=== PATIENT | male | born 1935 | race Caucasian/White ===

== ENCOUNTER 2016-09-30 08:50 | Emergency (ER) | payer OTHER ==
[~2016-09-30] VITALS: Ht 182.9 cm; Wt 111.9 kg
[~2016-09-30 08:50] MED LIST: ASPEC81 PO; FELO10TA PO; FENO160T PO; FOLI1TAB7 PO; FURO-85 PO; LISI40TA PO; MULT-618 PO; TPRSR25 PO; [UNRECOGNIZED DRUG - OTHER]
[2016-09-30 08:56] VITALS: TEMP 36.4; Ht 182.9 cm; Wt 111.9 kg
[2016-09-30 09:15] VITALS: O2SAT 96
[2016-09-30] MEDS ORDERED: LSX/40 PO (09:44)
[2016-09-30] MEDS ORDERED: ASPI-435 PO (09:44)
[2016-09-30 10:12] LABS: BASO % 0.3 %; BASO ABS # 0.01 K/uL (0-0.2); COMPLETE YES; EOS % 2.6 %; HEMATOCRIT 33.6 % (42-52); IG% 0.3 %; LYMPH % 23.5 %; LYMPH ABS # 0.92 K/uL (1.2-3.4); MEAN CELL VOLUME 109.8 fL (80-100); MEAN CORPUSCULAR HEMOGLOBIN 36.3 pg (25-34); MEAN PLATELET VOLUME 10.3 fL (7.4-10.4); MONO % 20.9 %; NEUT % 52.4 %; PLATELET COUNT 155 K/uL (130-400); RED BLOOD COUNT 3.06 M/uL (4.7-6.1); WHITE BLOOD COUNT 3.92 K/uL (4.8-10.8)
[2016-09-30 10:33] LABS: BUN/CREATININE RATIO 17.9 (10-20); CALCIUM 8.9 mg/dl (8.5-10.1); CREATININE 3.1 mg/dl (0.60-1.40)
[2016-09-30 10:38] LABS: ALB/GLOB RATIO 1.2 (0.9-2); CKMB/CK RATIO 1.9 (0-3.0)
--- NOTE | 2016-09-30 11:05 | DIAGNOSTIC IMAGING REPORT ---
CT OF THE ABDOMEN AND PELVIS WITHOUT CONTRAST CLINICAL HISTORY: Left lower quadrant pain. History of abdominal aortic aneurysm. COMPARISON STUDY: CT of the abdomen and pelvis January 14, 2009 and renal ultrasound January 15, 2009. TECHNIQUE: Axial images of the abdomen and pelvis were obtained without IV contrast. Images were reviewed in the axial, sagittal, and coronal planes. FINDINGS: The heart is moderately enlarged. There is extensive coronary artery calcification. No pneumatosis, free air or portal venous gas is present. No renal, ureteral or bladder calculi are present. Note is made of numerous bilateral renal lesions. The majority of these measure water attenuation and likely reflect simple cysts. A few are hyperdense and may reflect hyperdense cysts although are suboptimally assessed on this unenhanced exam. Unenhanced images of liver, adrenal glands and pancreas are unremarkable with exception of a 6 mm hypodense lateral segment lesion that likely reflects a cyst within the liver. There are small gallstones within the gallbladder. There is no evidence for a bowel obstruction. There is colonic diverticulosis without evidence for acute diverticulitis. There are findings consistent with repair of an abdominal aortic aneurysm. There is no evidence for rupture. Mild aneurysmal dilatation of the left common iliac artery, measuring 2 cm, is unchanged exam of January 14, 2009. Mild enlargement of prostate is noted. There are no suspicious osseous lesions. There are no enlarged lymph nodes. The appendix is normal. IMPRESSION: 1. No urinary calculi or hydronephrosis. 2. No acute process within the abdomen or pelvis on unenhanced exam. 3. Stable postoperative findings consistent with open repair of abdominal aortic aneurysm. No rupture. 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 4. Numerous bilateral renal lesions. These likely reflect simple and hyperdense cysts although remain indeterminate and are suboptimally assessed on this unenhanced exam. 5. Cholelithiasis. Electronically signed by: Ephraim Toledo M.D. 09/30/2016 11:04 AM Dictated Date/Time: 09/30/2016 10:53 AM
[2016-09-30 11:49] LABS: URINE APPEARANCE CLEAR (CLEAR); URINE BILIRUBIN NEG (NEG); URINE COLOR YELLOW; URINE NITRITE NEG (NEG); URINE PH 6.5 (4.5-7.5); URINE SPECIFIC GRAVITY 1.005 (1.000-1.030); UROBILINOGEN NEG (NEG); ZZUR CULT IF INDIC CLEAN CATCH NO
[2016-09-30 11:50] LABS: MANUAL MICROSCOPIC REQUIRED? NO; REVIEW REQ? NO
--- NOTE | 2016-09-30 12:36 | DIAGNOSTIC IMAGING REPORT ---
ULTRASOUND OF THE ABDOMINAL AORTA CLINICAL HISTORY: Left lower quadrant abdominal pain. COMPARISON STUDY: Abdominal CT dated 09/30/2016. TECHNIQUE: Multiple luna scale, color Doppler, and spectral Doppler sonograms of the abdominal aorta and iliac arteries are performed. Images are reviewed in the transverse and longitudinal planes. FINDINGS: There is moderate to advanced atherosclerotic calcification and irregularity noted throughout the abdominal aorta. The proximal abdominal aorta measures 2.3 x 2.4 cm (AP times transverse), the mid abdominal aorta measures 1.9 x 2.1 cm, and the distal abdominal aorta measures 2.0 x 1.8 cm. The right common iliac artery measures up to 1.1 cm and the left common iliac artery measures up to 1.3 cm. There is an aneurysm of the distal left common iliac artery which measures up to 1.7 cm. Normal flow and spectral Doppler waveforms are seen within the aorta and pelvic arteries. IMPRESSION: 1. There is no sonographic evidence of abdominal aortic aneurysm. 2. 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 3. These findings were better assessed on today's abdominal CT scan. Electronically signed by: Tien Goodrich M.D. 09/30/2016 12:34 PM Dictated Date/Time: 09/30/2016 12:31 PM
--- NOTE | 2016-09-30 14:34 | DIAGNOSTIC IMAGING REPORT ---
CHEST ONE VIEW PORTABLE CLINICAL HISTORY: Pain, radiating to the left lower quadrant COMPARISON STUDY: 07/25/2016 FINDINGS: The heart is enlarged. There is no failure. There is no focal pulmonary consolidation. There are no significant pleural effusions. There is minor left basilar atelectasis[ IMPRESSION: No active disease in the chest. Electronically signed by: Hosea Agrawal M.D. 09/30/2016 2:33 PM Dictated Date/Time: 09/30/2016 2:32 PM
[2016-09-30 15:02] VITALS: BP 167/64; PULSE 62; O2SAT 96
--- NOTE | 2016-09-30 15:03 | EMERGENCY ROOM VISIT NOTE ---
History First contact with patient: 09:05 Chief Complaint: IRREGULAR HEARTBEAT Stated Complaint: LEFT SIDE PAIN, FUNNY HEART RATE Nursing Triage Summary: Triage note: pt reports pain in left abd x "a couple months." pt reports hx of aortic anerysm with repair in 1984. pt reports "when i sit a certain way i can feel my heart beat strange for a couple weeks." History of Present Illness The patient is a 80 year old male who presents to the Emergency Room via private vehicle accompanied by with complaints of "left side pain, funny heart rate". The patient states that while sitting certain ways or when stepping down he develops a pulselike sensation throughout his body, worse he is able to feel his heartbeat. He states this is just like he felt when he had his AAA in the past which was repaired in 1984. He also notes that he has left lower quadrant pain that has been ongoing for the past few months, and went away for a period of time but is now back of which he rates as a 2-3/10. He also notes that he has a history of hypertension, and was taking 50 mg 3 times a day of an unknown medication and felt lousy therefore he backed this off. He notes that he had an ultrasound performed 2 months ago of the abdominal aorta which was normal. He notes that the pulselike sensation has been going on for 3 weeks or so, and he was here 2 months ago and diagnosed with PVCs. He states that he also went to his family doctor recently, and his had issues with his legs hurting and is scheduled for testing for this this coming week. 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 He denies any chest pain currently, and notes that he did have an episode for 5 days ago that was brief. His bowel movements have been normal. There is associated minimal nausea, and shortness of breath which is chronic, and unchanged. He denies any chest pain him a urinary symptoms, fevers, chills, vomiting. He denies any blood in the stool. Review of Systems A complete 10-point Review of Systems was discussed with the patient, with pertinent positives and negatives listed in the History of Present Illness. All remaining Review of Systems questions can be considered negative unless otherwise specified. Past Medical/Surgical History Medical Problems: (1) blood clots (2) Hypertension (3) Kidney disease (4) Pneumonia (5) skin problems Family History Diabetes mellitus FH: cancer FH: heart disease Hypertension Kidney disease or stones Social History Smoking Status: Former Smoker Marital Status: Housing Status: lives with family Occupation Status: retired Current/Historical Medications Scheduled Aspirin (Aspirin 81), 81 MG PO DAILY Felodipine (Plendil Er), 10 MG PO QPM Fenofibrate (Tricor), 160 MG PO QAM Folic Acid (Folvite), 1 MG PO QPM Furosemide (Lasix), 40 MG PO QAM Hydralazine HCl (Hydralazine HCl), 50 MG PO HS Hydralazine Hcl (Apresoline), 25 MG PO BID Lisinopril (Zestril), 40 MG PO QAM Metoprolol Succinate (Metoprolol Succinate ER), 25 MG PO BID Oxygen (Oxygen), 2 LITERS NA PRN Sildenafil Citrate (Viagra), 100 MG PO prn Miscellaneous Medications Multiple Vitamins W/ Minerals (Centrum Silver Ultra Mens) Placebo (Lazar Concentrate) Allergies Coded Allergies: Iodinated Diagnostic Agents (Unverified Allergy, Severe, KIDNEY PROBLEMS, 09/30/16) Amoxicillin (Verified Allergy, Unknown, ., 09/30/16) Atorvastatin (Verified Allergy, Unknown, `, 09/30/16) Gemfibrozil (Verified Allergy, Unknown, ., 09/30/16) Penicillins (Verified Allergy, Unknown, 09/30/16) Rosuvastatin (Verified Allergy, Unknown, ., 09/30/16) Morphine (Verified Adverse Reaction, Mild, PT DOES NOT LIKE THE WAY IT MAKES HIM FEEL, 09/30/16) Physical Exam Vital Signs Date Time Temp Pulse Resp B/P Pulse Ox O2 Delivery O2 Flow Rate FiO2 09/30/16 15:02 62 16 167/64 96 09/30/16 14:25 67 14 139/66 93 Room Air 09/30/16 14:16 60 180/75 93 64 166/72 71 139/66 09/30/16 13:11 60 09/30/16 12:27 60 14 176/71 93 Room Air 09/30/16 10:50 57 20 164/67 97 Room Air 09/30/16 09:15 96 Room Air 09/30/16 09:07 65 09/30/16 08:56 36.4 67 20 177/76 98 Room Air Physical Exam VITAL SIGNS - Vital signs and nursing notes were reviewed. Afebrile, hypertensive at 177/76, non-tachycardic and is saturating well on room air 98%. GENERAL -80-year-old male appearing his stated age who is in no acute distress. Communicates well with provider and answers questions appropriately. SKIN - Without rashes. There is erythema over the right adventism region where the patient had a previous biopsy/removal of a malignant lesion. HEAD - NC/AT. EYES - PERRL with EOMI bilaterally. Sclera anicteric. Palpebral conjunctiva pink and moist with no injection noted. EARS - No deformities of external structures noted on gross examination bilaterally. No pain elicited with palpation of the tragus bilaterally. External auditory canals without discharge or otorrhea. Tympanic membranes pearly luna without retraction or bulging. No fluid or purulent material visualized behind the TM. Handle of malleus, umbo, cone of light, pars tensa/ flaccid all easily visualized. NOSE - Midline and without cyanosis. No epistaxis or purulent drainage noted. Septum midline without deviation or septal hematoma noted. MOUTH/OROPHARYNX - Without perioral cyanosis. Buccal mucosa pink and moist and without leukoplakia. Tongue midline with equal elevation of palate bilaterally. No tonsillar hypertrophy, erythema, or exudates noted. Fair dentition noted. NECK - Neck with FROM. Supple to palpation. Good lymphadenopathy noted. No nuchal rigidity. LUNGS - Chest wall symmetric without accessory muscle use, intercostals retractions, or central cyanosis. Normal vesicular breath sounds CTA B/L. No wheezes, rales, or rhonchi appreciated. CARDIAC - RRR with S1/S2. No murmur, rubs, or gallops appreciated. ABDOMEN - Abdominal contour without pulsations or visible masses. BS normoactive all four quadrants. Minimal tenderness in left lower quadrant. No palpable masses, hepatosplenomegaly, or ascites noted. No evidence of hernia. EXTREMITIES - No clubbing or peripheral cyanosis. No pretibial edema present. + 5/5 strength noted in UE/LE bilaterally. NEUROLOGIC - Cranial nerves II through XII grossly intact. Sensory intact to light touch throughout. PSYCH - Pt is very pleasant and interacts well with examiner. Medical Decision & Procedures ER Provider Diagnostic Interpretation: CHEST ONE VIEW PORTABLE CLINICAL HISTORY: Pain, radiating to the left lower quadrant COMPARISON STUDY: 07/25/2016 FINDINGS: The heart is enlarged. There is no failure. There is no focal pulmonary consolidation. There are no significant pleural effusions. There is minor left basilar atelectasis[ IMPRESSION: No active disease in the chest. Electronically signed by: Hosea Agrawal M.D. 09/30/2016 2:33 PM Dictated Date/Time: 09/30/2016 2:32 PM ULTRASOUND OF THE ABDOMINAL AORTA CLINICAL HISTORY: Left lower quadrant abdominal pain. COMPARISON STUDY: Abdominal CT dated 09/30/2016. TECHNIQUE: Multiple luna scale, color Doppler, and spectral Doppler sonograms of the abdominal aorta and iliac arteries are performed. Images are reviewed in the transverse and longitudinal planes. FINDINGS: There is moderate to advanced atherosclerotic calcification and irregularity noted throughout the abdominal aorta. The proximal abdominal aorta measures 2.3 x 2.4 cm (AP times transverse), the mid abdominal aorta measures 1.9 x 2.1 cm, and the distal abdominal aorta measures 2.0 x 1.8 cm. The right common iliac artery measures up to 1.1 cm and the left common iliac artery measures up to 1.3 cm. There is an aneurysm of the distal left common iliac artery which measures up to 1.7 cm. Normal flow and spectral Doppler waveforms are seen within the aorta and pelvic arteries. IMPRESSION: 1. There is no sonographic evidence of abdominal aortic aneurysm. 2. 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 3. These findings were better assessed on today's abdominal CT scan. Electronically signed by: Tien Goodrich M.D. 09/30/2016 12:34 PM Dictated Date/Time: 09/30/2016 12:[address] OF THE ABDOMEN AND PELVIS WITHOUT CONTRAST CLINICAL HISTORY: Left lower quadrant pain. History of abdominal aortic aneurysm. COMPARISON STUDY: CT of the abdomen and pelvis January 14, 2009 and renal ultrasound January 15, 2009. TECHNIQUE: Axial images of the abdomen and pelvis were obtained without IV contrast. Images were reviewed in the axial, sagittal, and coronal planes. FINDINGS: The heart is moderately enlarged. There is extensive coronary artery calcification. No pneumatosis, free air or portal venous gas is present. No renal, ureteral or bladder calculi are present. Note is made of numerous bilateral renal lesions. The majority of these measure water attenuation and likely reflect simple cysts. A few are hyperdense and may reflect hyperdense cysts although are suboptimally assessed on this unenhanced exam. Unenhanced images of liver, adrenal glands and pancreas are unremarkable with exception of a 6 mm hypodense lateral segment lesion that likely reflects a cyst within the liver. There are small gallstones within the gallbladder. There is no evidence for a bowel obstruction. There is colonic diverticulosis without evidence for acute diverticulitis. There are findings consistent with repair of an abdominal aortic aneurysm. There is no evidence for rupture. Mild aneurysmal dilatation of the left common iliac artery, measuring 2 cm, is unchanged exam of January 14, 2009. Mild enlargement of prostate is noted. There are no suspicious osseous lesions. There are no enlarged lymph nodes. The appendix is normal. IMPRESSION: 1. No urinary calculi or hydronephrosis. 2. No acute process within the abdomen or pelvis on unenhanced exam. 3. Stable postoperative findings consistent with open repair of abdominal aortic aneurysm. No rupture. 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 4. Numerous bilateral renal lesions. These likely reflect simple and hyperdense cysts although remain indeterminate and are suboptimally assessed on this unenhanced exam. 5. Cholelithiasis. Electronically signed by: Ephraim Toledo M.D. 09/30/2016 11:04 AM Dictated Date/Time: 09/30/2016 10:53 AM Laboratory Results 09/30/16 09:50 Red Blood Count 3.06, Mean Corpuscular Volume 109.8, Mean Corpuscular Hemoglobin 36.3, Mean Corpuscular Hemoglobin Concent 33.0, Mean Platelet Volume 10.3, Neutrophils (%) (Auto) 52.4, Lymphocytes (%) (Auto) 23.5, Monocytes (%) ( Auto) 20.9, Eosinophils (%) (Auto) 2.6, Basophils (%) (Auto) 0.3, Neutrophils # (Auto) 2.06, Lymphocytes # (Auto) 0.92, Monocytes # (Auto) 0.82, Eosinophils # ( Auto) 0.10, Basophils # (Auto) 0.01 09/30/16 09:50 Test 09/30/16 09:50 09/30/16 10:24 White Blood Count 3.92 K/uL (4.8-10.8) Red Blood Count 3.06 M/uL (4.7-6.1) Hemoglobin 11.1 g/dL (14.0-18.0) Hematocrit 33.6 % (42-52) Mean Corpuscular Volume 109.8 fL (80-100) Mean Corpuscular Hemoglobin 36.3 pg (25-34) Mean Corpuscular Hemoglobin Concent 33.0 g/dl (32-36) Platelet Count 155 K/uL (130-400) Mean Platelet Volume 10.3 fL (7.4-10.4) Neutrophils (%) (Auto) 52.4 % Lymphocytes (%) (Auto) 23.5 % Monocytes (%) (Auto) 20.9 % Eosinophils (%) (Auto) 2.6 % Basophils (%) (Auto) 0.3 % Neutrophils # (Auto) 2.06 K/uL (1.4-6.5) Lymphocytes # (Auto) 0.92 K/uL (1.2-3.4) Monocytes # (Auto) 0.82 K/uL (0.11-0.59) Eosinophils # (Auto) 0.10 K/uL (0-0.5) Basophils # (Auto) 0.01 K/uL (0-0.2) RDW Standard Deviation 63.1 fL (36.4-46.3) RDW Coefficient of Variation 15.9 % (11.5-14.5) Immature Granulocyte % (Auto) 0.3 % Immature Granulocyte # (Auto) 0.01 K/uL (0.00-0.02) Anion Gap 9.0 mmol/L (3-11) Est Creatinine Clear Calc Drug Dose 23.7 ml/min Estimated GFR () 20.6 Estimated GFR (Non- 17.8 BUN/Creatinine Ratio 17.9 (10-20) Calcium Level 8.9 mg/dl (8.5-10.1) Total Bilirubin 0.5 mg/dl (0.2-1) Aspartate Amino Transf (AST/SGOT) 28 U/L (15-37) Alanine Aminotransferase (ALT/SGPT) 32 U/L (12-78) Alkaline Phosphatase 39 U/L (45-117) Total Creatine Kinase 85 U/L (39-308) Creatine Kinase MB 1.6 ng/ml (0.5-3.6) Creatine Kinase MB Ratio 1.9 (0-3.0) Troponin I < 0.015 ng/ml (0-0.045) Total Protein 6.9 gm/dl (6.4-8.2) Albumin 3.7 gm/dl (3.4-5.0) Globulin 3.2 gm/dl (2.5-4.0) Albumin/Globulin Ratio 1.2 (0.9-2) Lipase 177 U/L (73-393) Urine Color YELLOW Urine Appearance CLEAR (CLEAR) Urine pH 6.5 (4.5-7.5) Urine Specific [place] 1.005 (1.000-1.030) Urine Protein NEG (NEG) Urine Glucose (UA) NEG (NEG) Urine Ketones NEG (NEG) Urine Occult Blood NEG (NEG) Urine Nitrite NEG (NEG) Urine Bilirubin NEG (NEG) Urine Urobilinogen NEG (NEG) Urine Leukocyte Esterase NEG (NEG) Medical Decision Patient was seen and evaluated as above. After cleaning a thorough history and physical examination the above workup was completed. The patient did not have any current symptomatology suggestive of an acute coronary process however workup was also initiated in this direction. An EKG was also obtained and revealed a normal sinus rhythm, rate of 65 bpm, and when compared with previous no significant change was found. There was no ectopy or ischemic change noted upon the EKG at this time. Patient did not want anything for his pain. Laboratory results reveal a white blood cell count 3.92, hemoglobin of 11.1. CMP reveals BUN and creatinine of 56, and 3.10 respectively. Glucose was also 1 :15, and alkaline phosphatase was 39. Troponin was negative. Lipase was also within normal limits. Urine was unremarkable. CT scan without contrast was obtained secondary to the patient not being able to tolerate the contrast. Results as above. I agree with radiologist findings. There was concern for AAA however this was found to be not the case. Ultrasound was also obtained, and did not reveal any emergent aneurysm in the abdominal aorta. With the troponin being negative, EKG being stable, I do not feel there is any emergent cause at this time. Case was also discussed with my attending. I believe the patient can follow-up in the outpatient setting regarding today's visit. Patient has an appointment scheduled within the coming week. I did with this is appropriate. He is to return with any worsening, or new/concerning symptoms. There were thoroughly educated upon the findings of today's visit, instructed upon follow-up, were instructed to return and were educated upon reasons to return, they had questions answered prior to discharge and were discharged home in good condition. Patient was also thoroughly evaluated by my attending. Chest x-ray did not reveal any acute process. In evaluation treatment this patient the following differential diagnoses were entertained: ACS, PR, PE, COPD, AAA, diverticulitis, diverticulosis, perforation , among others. Impression Primary Impression: LLQ abdominal pain Additional Impression: Anemia Departure Information Dispostion Home / Self-Care Condition GOOD Referrals Remington Messina M.D. (PCP) Patient Instructions My [facility] Additional Instructions You were seen in the emergency Department for left lower quadrant pain, as well as in regard to your heart rate. Imaging and lab work has revealed no emergent cause at this time, however it is important you follow up with your family doctor regarding this matter. As we discussed,your family doctor will have access to your records from today' s visit. Please return to emergency department with any new/concerning symptoms. Please further discuss your lab results and imaging with your family doctor as we discussed. Please return to emergency department with any new/concerning symptoms. Problem Qualifiers
--- NOTE | 2016-09-30 17:02 | EMERGENCY ROOM VISIT NOTE ---
ED Visit Note First contact with patient: 09:05 80-year-old male with a pulse beating up through his chest into his neck. The patient is concerned about a problem with a prior aortic aneurysm. The patient was fully evaluated by Elijah Jacobsen PA-C. I also independently evaluated the patient. Patient had multiple imaging tests and blood work. Ultimately, the patient was felt safe to return home.
[2016-11-13] MEDS ORDERED: SILD100T PO (06:39)
[2016-11-13] MEDS ORDERED: APR25 PO (09:44)
[2016-11-13] MEDS ORDERED: OXGN (13:47)
== END 2016-09-30 15:02 | disposition home or self-care (01) ==
LOC: C.EDB 08:53
DX: R10.32 Left lower quadrant pain (principal); D64.9 Anemia, unspecified; I12.9 Hypertensive chronic kidney disease with stage 1 through stage 4 chronic kidney disease, or unspecified chronic kidney disease; N18.9 Chronic kidney disease, unspecified; Z87.891 Personal history of nicotine dependence; Z79.82 Long term (current) use of aspirin; Z79.899 Other long term (current) drug therapy; Z88.0 Allergy status to penicillin; Z88.3 Allergy status to other anti-infective agents; Z88.5 Allergy status to narcotic agent; Z88.8 Allergy status to other drugs, medicaments and biological substances; Z83.3 Family history of diabetes mellitus; Z80.9 Family history of malignant neoplasm, unspecified; Z82.49 Family history of ischemic heart disease and other diseases of the circulatory system; Z84.1 Family history of disorders of kidney and ureter

== ENCOUNTER 2016-11-13 18:21 | Emergency (ER) | payer OTHER ==
[~2016-11-13] VITALS: Ht 182.9 cm; Wt 108.4 kg
[~2016-11-13 18:21] MED LIST changes: +APR25 PO; -ASPEC81 PO; +ASPI-435 PO; -FURO-85 PO; +LSX/40 PO; +OXGN; +SILD100T PO
[2016-11-13] MEDS ORDERED: APR50 PO (18:23)
[2016-11-13 18:28] VITALS: Ht 182.9 cm; Wt 108.4 kg
--- NOTE | 2016-11-13 18:54 | EMERGENCY ROOM VISIT NOTE ---
History Report prepared by Enriqueta: Baltazar Jack Under the Supervision of: Dr. Pantera Orantes M.D. First contact with patient: 18:33 Chief Complaint: IRREGULAR HEARTBEAT Stated Complaint: IRREGULAR HEARTRATE,DOESN'T FEEL WELL History of Present Illness The patient is an 81 year old male who presents to the Emergency Room with complaints of an intermittent irregular heart beat that the patient began to experience today. The patient states that it feels as though his heart is skipping a beat and beating out of rhythm. He also complains of becoming diaphoretic last night and generally unwell throughout the day today. He was in the emergency department 6 weeks ago for the same feeling. He was diagnosed with PVCs following this visit. The patient is on Metoprolol twice daily. He does admit to eating salty ham today for the Holiday. He also has a history of Aortic Aneurysm which he had in July. Source of History: patient Onset: Today Position: chest Quality: other (Irregular heartbeat ) Timing: intermittent Associated Symptoms: + diaphoresis Review of Systems See HPI for pertinent positives & negatives. A total of 10 systems reviewed and were otherwise negative. Past Medical & Surgical Medical Problems: (1) blood clots (2) Hypertension (3) Kidney disease (4) Pneumonia (5) skin problems Family History Diabetes mellitus FH: cancer FH: heart disease Hypertension Kidney disease or stones Social History Smoking Status: Former Smoker Marital Status: Housing Status: lives with family Occupation Status: retired Current/Historical Medications Scheduled Acetaminophen (Tylenol), 1,000 MG PO PRN UD Aspirin (Aspirin 81), 81 MG PO DAILY Felodipine (Plendil Er), 10 MG PO QPM Fenofibrate (Tricor), 160 MG PO QAM Folic Acid (Folvite), 1 MG PO QPM Furosemide (Lasix), 40 MG PO QAM Hydralazine HCl (Hydralazine HCl), 50 MG PO HS Hydralazine Hcl (Apresoline), 25 MG PO BID Lisinopril (Zestril), 40 MG PO QAM Metoprolol Succinate (Metoprolol Succinate ER), 25 MG PO BID Oxygen (Oxygen), 2 LITERS NA PRN Sildenafil Citrate (Viagra), 100 MG PO prn [Black Lazar Juice], 4 OZ PO DAILY Miscellaneous Medications Multiple Vitamins W/ Minerals (Centrum Silver Ultra Mens), 1 TAB Allergies Coded Allergies: Iodinated Diagnostic Agents (Unverified Allergy, Severe, KIDNEY PROBLEMS, 09/30/16) Amoxicillin (Verified Allergy, Unknown, ., 09/30/16) Atorvastatin (Verified Allergy, Unknown, `, 09/30/16) Gemfibrozil (Verified Allergy, Unknown, ., 09/30/16) Penicillins (Verified Allergy, Unknown, 09/30/16) Rosuvastatin (Verified Allergy, Unknown, ., 09/30/16) Morphine (Verified Adverse Reaction, Mild, PT DOES NOT LIKE THE WAY IT MAKES HIM FEEL, 09/30/16) Physical Exam Vital Signs Date Time Temp Pulse Resp B/P Pulse Ox O2 Delivery O2 Flow Rate FiO2 11/13/16 20:53 36.7 79 20 181/80 96 11/13/16 20:30 183/80 11/13/16 20:27 71 97 11/13/16 20:06 79 11/13/16 20:01 185/79 11/13/16 19:57 69 21 96 11/13/16 19:52 67 181/80 11/13/16 19:30 73 189/81 11/13/16 19:19 72 147/78 11/13/16 19:14 96 Room Air 11/13/16 19:14 96 Room Air 11/13/16 19:14 96 Room Air 11/13/16 19:11 71 198/103 11/13/16 18:28 36.7 78 20 190/68 94 Room Air Physical Exam GENERAL: Patient is a healthy-appearing well-nourished HEAD: Normocephalic atraumatic EYES: Ocular movements intact pupils equal and react to light OROPHARYNX mucous membranes are moist no exudates present no erythema or edema present NECK: Supple no nuchal rigidity CHEST: Good equal expansion LUNGS: Clear and equal to auscultation CARDIAC: Normal S1 and S2 ABDOMEN: Soft nontender no guarding BACK: No CVA tenderness EXTREMITIES: No pain upon palpation normal muscle strength in all groups no clubbing cyanosis or edema NEURO: Patient is following commands is answering questions appropriately. Alert and oriented x3 Cranial Nerves 2-12 grossly intact Medical Decision & Procedures ER Provider Diagnostic Interpretation: Radiology results as stated below per my review and radiologist interpretation: SINGLE VIEW CHEST CLINICAL HISTORY: Atypical chest pain. FINDINGS: An AP, portable, upright chest radiograph is compared to study dated 09/30/2016 and correlated with chest CT dated 01/14/2009. The examination is degraded by portable technique, large body habitus, and patient rotation. The heart is markedly enlarged and there is atherosclerotic calcification of the thoracic aorta. The pulmonary vasculature is noncongested. Chronic interstitial thickening is similar to previous. There is bibasilar atelectasis. No airspace consolidation or large pleural effusion is seen. No pneumothorax is identified. The skeletal structures are osteopenic. Degenerative changes noted throughout the thoracic spine. IMPRESSION: Cardiomegaly with no acute cardiopulmonary abnormality. Electronically signed by: Tien Goodrich M.D. 11/13/2016 7:22 PM Dictated Date/Time: 11/13/2016 7:20 PM Laboratory Results 11/13/16 19:20 Red Blood Count 2.85, Mean Corpuscular Volume 108.8, Mean Corpuscular Hemoglobin 36.5, Mean Corpuscular Hemoglobin Concent 33.5, Mean Platelet Volume 9.8, Neutrophils (%) (Auto) 49.2, Lymphocytes (%) (Auto) 22.7, Monocytes (%) ( Auto) 26.2, Eosinophils (%) (Auto) 1.2, Basophils (%) (Auto) 0.2, Neutrophils # (Auto) 1.97, Lymphocytes # (Auto) 0.91, Monocytes # (Auto) 1.05, Eosinophils # ( Auto) 0.05, Basophils # (Auto) 0.01 11/13/16 19:20 Test 11/13/16 19:20 11/13/16 19:29 White Blood Count 4.01 K/uL (4.8-10.8) Red Blood Count 2.85 M/uL (4.7-6.1) Hemoglobin 10.4 g/dL (14.0-18.0) Hematocrit 31.0 % (42-52) Mean Corpuscular Volume 108.8 fL (80-100) Mean Corpuscular Hemoglobin 36.5 pg (25-34) Mean Corpuscular Hemoglobin Concent 33.5 g/dl (32-36) Platelet Count 148 K/uL (130-400) Mean Platelet Volume 9.8 fL (7.4-10.4) Neutrophils (%) (Auto) 49.2 % Lymphocytes (%) (Auto) 22.7 % Monocytes (%) (Auto) 26.2 % Eosinophils (%) (Auto) 1.2 % Basophils (%) (Auto) 0.2 % Neutrophils # (Auto) 1.97 K/uL (1.4-6.5) Lymphocytes # (Auto) 0.91 K/uL (1.2-3.4) Monocytes # (Auto) 1.05 K/uL (0.11-0.59) Eosinophils # (Auto) 0.05 K/uL (0-0.5) Basophils # (Auto) 0.01 K/uL (0-0.2) RDW Standard Deviation 64.1 fL (36.4-46.3) RDW Coefficient of Variation 16.1 % (11.5-14.5) Immature Granulocyte % (Auto) 0.5 % Immature Granulocyte # (Auto) 0.02 K/uL (0.00-0.02) Anion Gap 9.0 mmol/L (3-11) Est Creatinine Clear Calc Drug Dose 23.0 ml/min Estimated GFR () 20.5 Estimated GFR (Non- 17.6 BUN/Creatinine Ratio 17.5 (10-20) Calcium Level 8.4 mg/dl (8.5-10.1) Total Bilirubin 0.2 mg/dl (0.2-1) Direct Bilirubin mg/dl (0-0.2) Aspartate Amino Transf (AST/SGOT) 35 U/L (15-37) Alanine Aminotransferase (ALT/SGPT) 30 U/L (12-78) Alkaline Phosphatase 39 U/L (45-117) Total Creatine Kinase 105 U/L (39-308) Creatine Kinase MB 1.5 ng/ml (0.5-3.6) Creatine Kinase MB Ratio 1.4 (0-3.0) Troponin I < 0.015 ng/ml (0-0.045) Pro-B-Type Natriuretic Peptide 202 pg/ml (0-1800) Total Protein 6.6 gm/dl (6.4-8.2) Albumin 3.5 gm/dl (3.4-5.0) Lipase 206 U/L (73-393) Chemistry Specimen Hemolysis Bedside Hemoglobin 9.9 g/dl (14.0-18.0) Bedside Hematocrit 29 % (42-52) Bedside Blood Gas pH (LAB) 7.44 (7.35-7.45) Bedside Blood Gas pCO2 (LAB) 35 mmHg (35-46) Bedside Blood Gas pO2 (LAB) 75 mmHg (80-95) Bedside Blood Gas HCO3 (LAB) 24 meq/L (19-24) Bedside Blood Gas Total CO2 25 mEq/l (24-31) Bedside Blood Gas Base Excess (LAB) 0.0 meq/L (-9-1.8) Bedside Blood Gas O2 Saturation 95.0 % (90-95) Bedside Sodium 142 mEq/L (135-144) Bedside Potassium 3.9 mEq/L (3.3-5.0) Labs reviewed by ED physician. Medications Administered Medications (Trade) Dose Ordered Sig/Kay Route Start Time Stop Time Status Last Admin Dose Admin Sodium Chloride (Nss 500ml) 500 ml @ 999 mls/hr Q31M STAT IV 11/13/16 20:10 11/13/16 20:40 DC 11/13/16 20:18 999 MLS/HR ECG Indication: palpitations Rate (beats per minute): 78 Rhythm: sinus rhythm Findings: PVC (Frequent), no ectopy ED Course 1832: Past medical records reviewed. The patient was evaluated in room B6. A complete history and physical examination was performed. 2009: Sodium Chloride 500 mL @ 999 mL/hr IV. 2040: Upon reexamination the patient is improved. I discussed results and treatment plan with the patient. He verbalizes agreement and understanding. The patient is ready for discharge. Medical Decision Differential diagnosis: Etiologies such as premature contractions, electrolyte abnormality, cardiac dysrhythmia, thyroid dysfunction, pulmonary embolism, infection, gastrointestinal, as well as others were entertained. This is an 81-year-old male who presents emergency department complaining of PVCs. The patient is been evaluated twice in the emergency department for these since July. He reports he has been very physically active over the past 2 days and the past 2 days have been very warm. Based on these findings I elected to give the patient fluid as he does appear to be dehydrated according to his lab work. His creatinine is usually around 2.8-2.9. It is 3.1 today. In addition the patient was also given his evening medications and this seemed to take care of the problem of the PVCs. I believe the patient probably exerted himself on a warm hot day and probably needed his evening medications a little earlier. I did stressed the need for follow-up with cardiology. He is going to increase his fluid intake over the next 48 hours. Both patient and are in agreement with the treatment plan. Impression Primary Impression: PVC (premature ventricular contraction) Additional Impression: Dehydration Scribe Attestation The scribe's documentation has been prepared under my direction and personally reviewed by me in its entirety. I confirm that the note above accurately reflects all work, treatment, procedures, and medical decision making performed by me. Departure Information Dispostion Home / Self-Care Referrals Remington Messina M.D. (PCP) Forms HOME CARE DOCUMENTATION FORM, IMPORTANT VISIT INFORMATION Patient Instructions My [facility] Additional Instructions Increase fluids next 48 hours Follow up with DR Mars's office You have been examined and treated today on an emergency basis only. This is not a substitute for, or an effort to provide, complete comprehensive medical care. It is impossible to recognize and treat all injuries or illnesses in a single emergency department visit. It is therefore important that you follow up closely with Dr Messina. Call as soon as possible for an appointment. Thank you for your time and consideration. I look forward to speaking with you again soon. Please don't hesitate to call us if you have any questions. Problem Qualifiers
[2016-11-13] MEDS ORDERED: BLACK CHERRY JUICE PO (19:01)
[2016-11-13] MEDS ORDERED: ACET-1256 PO (19:01)
[2016-11-13 19:14] VITALS: O2SAT 96
--- NOTE | 2016-11-13 19:24 | DIAGNOSTIC IMAGING REPORT ---
SINGLE VIEW CHEST CLINICAL HISTORY: Atypical chest pain. FINDINGS: An AP, portable, upright chest radiograph is compared to study dated 09/30/2016 and correlated with chest CT dated 01/14/2009. The examination is degraded by portable technique, large body habitus, and patient rotation. The heart is markedly enlarged and there is atherosclerotic calcification of the thoracic aorta. The pulmonary vasculature is noncongested. Chronic interstitial thickening is similar to previous. There is bibasilar atelectasis. No airspace consolidation or large pleural effusion is seen. No pneumothorax is identified. The skeletal structures are osteopenic. Degenerative changes noted throughout the thoracic spine. IMPRESSION: Cardiomegaly with no acute cardiopulmonary abnormality. Electronically signed by: Tien Goodrich M.D. 11/13/2016 7:22 PM Dictated Date/Time: 11/13/2016 7:20 PM
[2016-11-13 19:29] LABS: BASO % 0.2 %; BASO ABS # 0.01 K/uL (0-0.2); COMPLETE YES; EOS % 1.2 %; IG% 0.5 %; LYMPH % 22.7 %; LYMPH ABS # 0.91 K/uL (1.2-3.4); MEAN CELL VOLUME 108.8 fL (80-100); MEAN CORPUSCULAR HEMOGLOBIN 36.5 pg (25-34); MEAN CORPUSCULAR HGB CONC 33.5 g/dl (32-36); MEAN PLATELET VOLUME 9.8 fL (7.4-10.4); MONO % 26.2 %; NEUT % 49.2 %; PLATELET COUNT 148 K/uL (130-400); RED BLOOD COUNT 2.85 M/uL (4.7-6.1); WHITE BLOOD COUNT 4.01 K/uL (4.8-10.8)
[2016-11-13 19:43] LABS: ISTAT ARTERIAL BLOOD GAS HCO3 24 meq/L (19-24); ISTAT ARTERIAL BLOOD GAS PCO2 35 mmHg (35-46); ISTAT ARTERIAL BLOOD GAS PO2 75 mmHg (80-95); ISTAT ARTERIAL BLOOD GAS pH 7.44 (7.35-7.45); ISTAT CARBON DIOXIDE 25 mEq/l (24-31); ISTAT HEMATOCRIT 29 % (42-52); ISTAT HEMOGLOBIN 9.9 g/dl (14.0-18.0); ISTAT SODIUM 142 mEq/L (135-144)
[2016-11-13 20:02] LABS: ALKALINE PHOSPHATASE 39 U/L (45-117); ALT/SGPT 30 U/L (12-78); AST/SGOT 35 U/L (15-37); BLOOD UREA NITROGEN 54 mg/dl (7-18); BUN/CREATININE RATIO 17.5 (10-20); CALCIUM 8.4 mg/dl (8.5-10.1); CARBON DIOXIDE 26 mmol/L (21-32); CHLORIDE 110 mmol/L (98-107); CKMB/CK RATIO 1.4 (0-3.0); GLUCOSE 134 mg/dl (70-99); POTASSIUM 3.9 mmol/L (3.5-5.1); SODIUM 145 mmol/L (136-145)
[2016-11-13] MEDS ORDERED: SODIUM CHLORIDE 0.9% 500ML 500 ML IV STA (20:10)
[2016-11-13 20:53] VITALS: BP 181/80; PULSE 79; TEMP 36.7; O2SAT 96
== END 2016-11-13 20:53 | disposition home or self-care (01) ==
LOC: C.EDB 18:22
DX: I49.3 Ventricular premature depolarization (principal); E86.0 Dehydration; R61 Generalized hyperhidrosis; I10 Essential (primary) hypertension; Z86.79 Personal history of other diseases of the circulatory system; Z87.891 Personal history of nicotine dependence; Z83.3 Family history of diabetes mellitus; Z82.49 Family history of ischemic heart disease and other diseases of the circulatory system; Z84.1 Family history of disorders of kidney and ureter; Z79.82 Long term (current) use of aspirin

== ENCOUNTER 2016-11-28 13:15 | Emergency (ER) | payer OTHER ==
[~2016-11-28] VITALS: Ht 182.9 cm; Wt 108.6 kg
[~2016-11-28 13:15] MED LIST changes: +ACET-1256 PO; +APR50 PO; +BLACK CHERRY JUICE PO; -[UNRECOGNIZED DRUG - OTHER]
[2016-11-28 13:27] VITALS: TEMP 36.9; Ht 182.9 cm; Wt 108.6 kg
[2016-11-28 13:56] LABS: BASO % 0.2 %; BASO ABS # 0.01 K/uL (0-0.2); EOS % 0.8 %; HEMATOCRIT 33.2 % (42-52); IG% 0.2 %; LYMPH % 16.6 %; LYMPH ABS # 0.81 K/uL (1.2-3.4); MEAN CELL VOLUME 110.3 fL (80-100); MEAN CORPUSCULAR HEMOGLOBIN 36.2 pg (25-34); MEAN CORPUSCULAR HGB CONC 32.8 g/dl (32-36); MEAN PLATELET VOLUME 10.2 fL (7.4-10.4); NEUT % 59.2 %; PLATELET COUNT 183 K/uL (130-400); RED BLOOD COUNT 3.01 M/uL (4.7-6.1); WHITE BLOOD COUNT 4.87 K/uL (4.8-10.8)
--- NOTE | 2016-11-28 13:56 | DIAGNOSTIC IMAGING REPORT ---
CHEST ONE VIEW PORTABLE CLINICAL HISTORY: Fever and sepsis COMPARISON STUDY: 11/13/2016 FINDINGS: The heart remains mildly enlarged. There is no failure. There is no focal pulmonary consolidation. No pleural effusions are visualized. There is minor left basilar atelectasis.[ IMPRESSION: Mild cardiomegaly. No acute findings. Electronically signed by: Hosea Agrawal M.D. 11/28/2016 1:54 PM Dictated Date/Time: 11/28/2016 1:54 PM
[2016-11-28 14:19] LABS: COMPLETE YES; STOMATOCYTE 1+
[2016-11-28] MEDS ORDERED: CHERRY JUICE PO (14:19)
[2016-11-28] MEDS ORDERED: AZIT250T PO (14:19)
[2016-11-28 14:49] LABS: ALKALINE PHOSPHATASE 42 U/L (45-117); ALT/SGPT 33 U/L (12-78); AST/SGOT 33 U/L (15-37); BLOOD UREA NITROGEN 57 mg/dl (7-18); BUN/CREATININE RATIO 19.6 (10-20); CALCIUM 8.9 mg/dl (8.5-10.1); CARBON DIOXIDE 22 mmol/L (21-32); CHLORIDE 105 mmol/L (98-107); CKMB/CK RATIO 1.6 (0-3.0); GLUCOSE 166 mg/dl (70-99); POTASSIUM 4.2 mmol/L (3.5-5.1); SODIUM 137 mmol/L (136-145)
[2016-11-28 14:56] LABS: PARTIAL THROMBOPLASTIN RATIO 0.9; PROTHROMBIN TIME (PATIENT) 11.2 SECONDS (9.0-12.0)
--- NOTE | 2016-11-28 15:03 | EMERGENCY ROOM VISIT NOTE ---
History Report prepared by Enriqueta: Char Chu Under the Supervision of: Dr. Pantera Paige D.O. First contact with patient: 13:34 Chief Complaint: CHEST PAIN Stated Complaint: CHEST PAIN History of Present Illness The patient is a 81 year old male who presents to the Emergency Room with complaints of shortness of breath starting a few months ago and worsening about a week ago. The patient reports worsening difficulty breathing with exertion. He also reports increased weakness and tiredness. He reports some heart palpitations which have been occurring for the past week and have worsened today. He has a history of PVCs, bypass surgery, and aortic aneurysm repair. He has an appointment with his icu tech tomorrow. The patient denies fevers, chills, chest pain, nausea, vomiting, abdominal pain, or any other complaints. Source of History: patient Onset: a few months ago Position: other (global) Quality: other (shortness of breath) Timing: worsening Modifying Factors (Worsening): exertion Associated Symptoms: + weakness, No abdominal pain, No chest pain, No chills , No fevers, No nausea, No vomiting Review of Systems See HPI for pertinent positives & negatives. A total of 10 systems reviewed and were otherwise negative. Past Medical & Surgical Medical Problems: (1) blood clots (2) Hypertension (3) Kidney disease (4) Pneumonia (5) skin problems Family History Diabetes mellitus FH: cancer FH: heart disease Hypertension Kidney disease or stones Social History Smoking Status: Former Smoker Marital Status: Housing Status: lives with family Occupation Status: retired Current/Historical Medications Scheduled Acetaminophen (Tylenol), 1,000 MG PO PRN UD Aspirin (Aspirin 81), 81 MG PO DAILY Azithromycin (Zithromax), 500 MG PO UD Felodipine (Plendil Er), 10 MG PO QPM Fenofibrate (Tricor), 160 MG PO QAM Folic Acid (Folvite), 1 MG PO QPM Furosemide (Lasix), 40 MG PO QAM Hydralazine HCl (Hydralazine HCl), 50 MG PO TID Lisinopril (Zestril), 40 MG PO QAM Metoprolol Succinate (Metoprolol Succinate ER), 25 MG PO BID Multiple Vitamins W/ Minerals (Centrum Silver Ultra Mens), 1 TAB PO DAILY Oxygen (Oxygen), 2 LITERS NA PRN Sildenafil Citrate (Viagra), 100 MG PO prn [Lazar Juice], 4 OZ PO DAILY Allergies Coded Allergies: Iodinated Diagnostic Agents (Unverified Allergy, Severe, KIDNEY PROBLEMS, 09/30/16) Amoxicillin (Verified Allergy, Unknown, ., 09/30/16) Atorvastatin (Verified Allergy, Unknown, `, 09/30/16) Gemfibrozil (Verified Allergy, Unknown, ., 09/30/16) Penicillins (Verified Allergy, Unknown, 09/30/16) Rosuvastatin (Verified Allergy, Unknown, ., 09/30/16) Morphine (Verified Adverse Reaction, Mild, PT DOES NOT LIKE THE WAY IT MAKES HIM FEEL, 09/30/16) Physical Exam Vital Signs Date Time Temp Pulse Resp B/P Pulse Ox O2 Delivery O2 Flow Rate FiO2 11/28/16 13:38 79 11/28/16 13:27 36.9 79 18 162/77 95 Room Air Physical Exam CONSTITUTIONAL/VITAL SIGNS: Reviewed / noted above. GENERAL: Non-toxic in appearance. INTEGUMENTARY: Warm, dry, and [place]. HEAD: Normocephalic. EYES: without scleral icterus or trauma. ENT/OROPHARYNX: clear and moist. LYMPHADENOPATHY/NECK: Is supple without lymphadenopathy or meningismus. RESPIRATORY: Lungs clear and equal. CARDIOVASCULAR: Regular rate and rhythm. GI/ABDOMEN: Soft and nontender. No organomegaly or pulsatile mass. No rebound or guarding. Normal bowel sounds. EXTREMITIES: Warm and well perfused. BACK: No CVA tenderness. NEUROLOGICAL: Intact without focal deficits. PSYCHIATRIC: normal affect. MUSCULOSKELETAL: Normally developed with good muscle tone. Medical Decision & Procedures ER Provider Diagnostic Interpretation: X ray results and stated below per my interpretation and radiology interpretation. CHEST ONE VIEW PORTABLE CLINICAL HISTORY: Fever and sepsis COMPARISON STUDY: 11/13/2016 FINDINGS: The heart remains mildly enlarged. There is no failure. There is no focal pulmonary consolidation. No pleural effusions are visualized. There is minor left basilar atelectasis.[ IMPRESSION: Mild cardiomegaly. No acute findings. Electronically signed by: Hosea Agrawal M.D. 11/28/2016 1:54 PM Dictated Date/Time: 11/28/2016 1:54 PM Laboratory Results 11/28/16 13:35 Red Blood Count 3.01, Mean Corpuscular Volume 110.3, Mean Corpuscular Hemoglobin 36.2, Mean Corpuscular Hemoglobin Concent 32.8, Mean Platelet Volume 10.2, Neutrophils (%) (Auto) 59.2, Lymphocytes (%) (Auto) 16.6, Monocytes (%) ( Auto) 23.0, Eosinophils (%) (Auto) 0.8, Basophils (%) (Auto) 0.2, Neutrophils # (Auto) 2.88, Lymphocytes # (Auto) 0.81, Monocytes # (Auto) 1.12, Eosinophils # ( Auto) 0.04, Basophils # (Auto) 0.01 11/28/16 13:35 Test 11/28/16 13:35 11/28/16 14:35 White Blood Count 4.87 K/uL (4.8-10.8) Red Blood Count 3.01 M/uL (4.7-6.1) Hemoglobin 10.9 g/dL (14.0-18.0) Hematocrit 33.2 % (42-52) Mean Corpuscular Volume 110.3 fL (80-100) Mean Corpuscular Hemoglobin 36.2 pg (25-34) Mean Corpuscular Hemoglobin Concent 32.8 g/dl (32-36) Platelet Count 183 K/uL (130-400) Mean Platelet Volume 10.2 fL (7.4-10.4) Neutrophils (%) (Auto) 59.2 % Lymphocytes (%) (Auto) 16.6 % Monocytes (%) (Auto) 23.0 % Eosinophils (%) (Auto) 0.8 % Basophils (%) (Auto) 0.2 % Neutrophils # (Auto) 2.88 K/uL (1.4-6.5) Lymphocytes # (Auto) 0.81 K/uL (1.2-3.4) Monocytes # (Auto) 1.12 K/uL (0.11-0.59) Eosinophils # (Auto) 0.04 K/uL (0-0.5) Basophils # (Auto) 0.01 K/uL (0-0.2) RDW Standard Deviation 64.3 fL (36.4-46.3) RDW Coefficient of Variation 16.0 % (11.5-14.5) Immature Granulocyte % (Auto) 0.2 % Immature Granulocyte # (Auto) 0.01 K/uL (0.00-0.02) Macrocytosis PRESENT Stomatocytes 1+ Anion Gap 10.0 mmol/L (3-11) Est Creatinine Clear Calc Drug Dose 24.6 ml/min Estimated GFR () 22.2 Estimated GFR (Non- 19.1 BUN/Creatinine Ratio 19.6 (10-20) Calcium Level 8.9 mg/dl (8.5-10.1) Total Bilirubin 0.5 mg/dl (0.2-1) Direct Bilirubin mg/dl (0-0.2) Aspartate Amino Transf (AST/SGOT) 33 U/L (15-37) Alanine Aminotransferase (ALT/SGPT) 33 U/L (12-78) Alkaline Phosphatase 42 U/L (45-117) Total Creatine Kinase 74 U/L (39-308) Creatine Kinase MB 1.2 ng/ml (0.5-3.6) Creatine Kinase MB Ratio 1.6 (0-3.0) Troponin I < 0.015 ng/ml (0-0.045) Total Protein 7.0 gm/dl (6.4-8.2) Albumin 3.9 gm/dl (3.4-5.0) Lipase 210 U/L (73-393) Prothrombin Time 11.2 SECONDS (9.0-12.0) Prothromb Time International Ratio 1.0 (0.9-1.1) Activated Partial Thromboplast Time 24.4 SECONDS (21.0-31.0) Partial Thromboplastin Ratio 0.9 Laboratory results as stated above per my review. ECG Indication: SOB/dyspnea Rate (beats per minute): 76 Rhythm: normal sinus Findings: no acute ischemic change, no ectopy ED Course 1334: Previous medical records were reviewed. The patient was evaluated in room C01B. A complete history and physical examination was performed. 1455: On reevaluation, the patient is resting comfortably. I discussed the results and findings with the patient. He verbalized agreement of the treatment plan. The patient was discharged home. Medical Decision the differential was considered includes acute myocardial infarction, acute coronary syndrome, myocarditis, pericarditis, pericardial effusions /tamponad, esophageal perforation, thoracic aortic dissection, pulmonary embolism, pneumonia, pneumothorax, pancreatitis, shingles, acute cholecystitis, perforated abdominal viscus. This is a 81-year-old male who presents to the ED with a chief complaint of palpitations as well as some exertional dyspnea, weakness and fatigue. The patient states that his is exertional symptoms of the going on for several months. He has an appointment to see his icu tech tomorrow. His symptoms have been worse over the past week, he reports. The patient has a history of PVCs. He states that the PVCs have been acting out more recently. He has no other complaints. His vital signs are stable. His physical exam was unremarkable other than slightly irregular pulse related to PVCs. Twelve-lead EKG reveals normal sinus rhythm. His monitor showed some quadrigeminal PVCs. CBC is unremarkable. A chest x-ray was negative for acute disease. BUN is 57 and creatinine is 2.9. This is around the patient's baseline. Troponin is negative. The patient was told results the test. Scribe Attestation The scribe's documentation has been prepared under my direction and personally reviewed by me in its entirety. I confirm that the note above accurately reflects all work, treatment, procedures, and medical decision making performed by me. Departure Information Dispostion Home / Self-Care Referrals Remington Messina M.D. (PCP) Forms HOME CARE DOCUMENTATION FORM, IMPORTANT VISIT INFORMATION Patient Instructions My [facility] Additional Instructions Follow-up with cardiology as scheduled tomorrow. Follow-up with your doctor for further care and evaluation in 1-2 days. Return to the emergency department for worsening or new symptoms or any concerns. You have been examined and treated today on an emergency basis only. This is not a substitute for, or an effort to provide, complete comprehensive medical care. It is impossible to recognize and treat all injuries or illnesses in a single emergency department visit. It is therefore important that you follow up closely with your doctor. Call as soon as possible for an appointment.
[2016-11-28 15:10] VITALS: BP 160/81; PULSE 70; O2SAT 97
== END 2016-11-28 15:15 | disposition home or self-care (01) ==
LOC: C.EDB 13:16 → C.EDC 15:15
DX: I49.3 Ventricular premature depolarization (principal); Z86.718 Personal history of other venous thrombosis and embolism; I10 Essential (primary) hypertension; N28.9 Disorder of kidney and ureter, unspecified; Z83.3 Family history of diabetes mellitus; Z80.9 Family history of malignant neoplasm, unspecified; Z82.49 Family history of ischemic heart disease and other diseases of the circulatory system; Z84.1 Family history of disorders of kidney and ureter; Z87.891 Personal history of nicotine dependence; Z79.82 Long term (current) use of aspirin; Z79.899 Other long term (current) drug therapy

== ENCOUNTER 2019-04-12 16:14 | Inpatient (IN) ==
--- OUTSIDE RECORDS SUMMARY | 2019-04-12 16:16 | External Medical Summary | Continuity of Care Document ---
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) (Z86.008) History of basal cell carcinoma (V10.83) (Z85.828) Actinic keratosis (702.0) (L57.0) Basal cell carcinoma of face (173.31) (C44.310) Dermatitis (692.9) (L30.9) Neoplasm of uncertain behavior of skin (238.2) (D48.5) Allergies and Adverse Reactions amoxicillin (Allergy) Crestor TABS (Allergy) Gemfibrozil TABS (Allergy) Lipitor (Allergy) Penicillins (Allergy) Medications Omeprazole 20 MG Oral Tablet Delayed Release Refills: 0 traZODone HCl - 50 MG Oral Tablet Refills: 0 Nitroglycerin 0.3 MG Sublingual Tablet Sublingual Refills: 0 Isosorbide Mononitrate 30 MG TB24 Refills: 0 Azithromycin 250 MG Oral Tablet Refills: 0 Desonide 0.05 % External Ointment; APPLY SPARINGLY TO AFFECTED AREA(S) TWICE DAILY Beto Chirinos Remington Start: 18-Jul-2016 Quantity: 1 60 GM Tube Refills: 2 Centrum Silver Oral Tablet; TAKE 1 TABLET DAILY. Refills: 0 Aspirin Low Dose 81 MG TABS; TAKE 1 TABLET DAILY. Refills: 0 Viagra TABS; TAKE DIRECTED. Refills: 0 Folic Acid 1 MG Oral Tablet; TAKE 1 TABLET DAILY. Refills: 0 Fenofibrate 160 MG Oral Tablet; TAKE 1 TABLET DAILY. Refills: 0 Furosemide 20 MG Oral Tablet; TAKE 1 TABLET DAILY. Refills: 0 Lisinopril 40 MG Oral Tablet; TAKE 1 TABLET DAILY. Refills: 0 Felodipine ER 10 MG Oral Tablet Extended Release 24 Hour; TAKE 1 TABLET ONCE DAILY. Refills: 0 Tylenol Extra Strength 500 MG Oral Tablet Refills: 0 hydrALAZINE HCl - 25 MG Oral Tablet Refills: 0 Metoprolol Succinate ER 25 MG Oral Table t Extended Release 24 Hour; TAKE 1 TABLET DAILY. Refills: 0 Procedures Procedures not documented Immunizations Immunizations not documented Social History - Smoking Status Former smoker Interventions Follow-ups/ReferralsFollow-up visit in 6 months; Done: 19 Jul 2017 Plan of Treatment Planned Observations Planned Goals not documented Results No Known Results Results not documented Encounters Appointment; Remington Chirinos M.D. 19-Jul-2017 8:40 Encounter Diagnosis: Problem not documented
[2019-04-12] MEDS ORDERED: ASPIRIN CHEW 324 MG PO STA (16:53)
[2019-04-12 17:12] LABS: Basophils # (auto) 0.02 K/uL (0-0.2); Basophils % (auto) 0.5 %; Eosinophils % (auto) 2.5 %; Hematocrit (blood only) 30.6 % (42-52); Hemoglobin 10.1 g/dL (14.0-18.0); Immature Granulocytes # (auto) 0.01 K/uL (0.00-0.02); Immature Granulocytes % (auto) 0.2 %; Lymphocytes % (auto) 29.6 %; Mean Corpuscular Volume 112.5 fL (80-100); Mean Platelet Volume 10.4 fL (7.4-10.4); Monocytes # (auto) 1.11 K/uL (0.11-0.59); Monocytes % (auto) 27.3 %; Neutrophils # (auto) 1.62 K/uL (1.4-6.5); Neutrophils % (auto) 39.9 %; Platelet Count 158 K/uL (130-400); RDW Coefficient of Variation 16.7 % (11.5-14.5); Red Blood Count 2.72 M/uL (4.7-6.1); White Blood Count 4.06 K/uL (4.8-10.8)
[2019-04-12 17:20] LABS: BUN Creatinine Ratio 18.6 (10-20); Blood Urea Nitrogen 69 mg/dl (7-18); Calcium 8.5 mg/dl (8.5-10.1); Carbon Dioxide 23 mmol/L (21-32); Chloride 107 mmol/L (98-107); Creatinine Clr Calc Pharmacy 19.2 ml/min; Est GFR (African American) 16.3; Est GFR (Non-African American) 14.1; Glucose 121 mg/dl (70-99); Potassium 4.3 mmol/L (3.5-5.1); Sodium 138 mmol/L (136-145)
[2019-04-12 17:26] LABS: Magnesium 2.3 mg/dl (1.8-2.4); NT Pro B Type Natriuretic Pept 266 pg/ml (0-1800); Troponin I < 0.015 ng/ml (0-0.045)
[2019-04-12 17:29] LABS: INR 1.1 (0.9-1.1); Partial Thromboplastin Ratio 0.9; Partial Thromboplastin Time 24.4 Seconds (21.0-31.0); Prothrombin Time 11.3 Seconds (9.0-12.0)
--- NOTE | 2019-04-12 17:30 | XRay Report ---
XR chest 2V routine CLINICAL HISTORY: Chest Pain COMPARISON STUDY: Chest radiograph November 28, 2016. FINDINGS: Lung volumes are normal. Lungs are clear. There is no pneumothorax or pleural effusion. Mil d cardiomegaly is noted. Mediastinal contours are normal. There is no evidence for pulmonary edema. IMPRESSION: No acute cardiopulmonary findings. No change in appearance of the chest. Electronically signed by: Ephraim Toledo M.D. 04/12/2019 5:29 PM
[2019-04-12 17:58] LABS: Anisocytosis Present
--- NOTE | 2019-04-12 18:51 | History & Physical Report ---
Date of Service April 12, 2019 Assessment & Plan (1) Palpitations: (2) Premature ventricular beat: Pt is 83 y/o M with PMH HTN, dyslipidemia, PAD, h/o left popliteal aneurysm repair in 2006, CKD IV, anemia chronic disease, sleep apnea, stroke, gout, h/o aortic aneurysm repair 1984 presented to ER with complaint of increased palpitations. Reports h/o palpitations occurring every couple of weeks in past. Past 2 weeks with palpitations multiple times a day lasting up to 1 hour and occurring only at rest. Denies associated CP, SOB, dizziness, syncope. -In ER patient afebrile, peak: 63, RR: 20, BP 190/74, 96% on room air. WBC: 4, H/H: 05/29 (baseline hemoglobin: 11). negative troponin. No significant electrolyte abnormality, normal magnesium. EKG sinus rhythm with frequent PVCs -Currently pt denies palpitations. Denies CP or SOB -Obtain TSH -Monitor on telemetry -Trend troponin -Echo -We will continue patient's home metoprolol succinate 25 mg twice daily for now -Cardiology consultation (3) CKD (chronic kidney disease), stage IV: Cr: 3.6. Baseline 3.[address] Blunt -Avoid nephrotoxic agents -Monitor renal functions (4) Chronic anemia: H/H: 05/29 (baseline Hgb: 11) -Monitor CBC (5) Hypertension: In ER BP 190/74 down to 159/97 -Continue felodipine, hydralazine, lisinopril, metoprolol succinate, isosorbide (6) PAD (peripheral artery disease): h/o left popliteal aneurysm repair in 2006 -Continue aspirin, metoprolol, lisinopril (7) History of AAA (abdominal aortic aneurysm) repair: History echo 2017: EF: 55-59%, mild AV sclerosis without stenosis. Mild aortic regurgitation, mild tricuspid regurgitation, mild pulmonary hypertension. Aortic root 3.9 cm. Proximal descending thoracic aorta moderately enlarged at 4.4 cm (8) Dyslipidemia: Intolerant to statin -Continue fenofibrate (9) FLORIDALMA (obstructive sleep apnea): -CPAP at bedtime (10) Obesity: BMI: 34 -lifestyle modifications recommended DVT Prophylaxis -Heparin SQ Full Code as per discussion with pt, reports would not prolonged life support if poor prognosis Follows with Dr Rozick for routine care Pt was seen and care coordinated with Dr Baez. See addendum History of Present Illness Chief Complaint: Palpitations Primary Care Provider: Remington Messina MD Pt is 83 y/o M with PMH HTN, dyslipidemia, PAD, h/o left popliteal aneurysm repair in 2006, CKD IV, anemia chronic disease, sleep apnea, stroke, gout, h/o aortic aneurysm repair 1984 presented to ER with complaint of palpitations. Patient reports history of intermittent palpitations which he reports was diagnosed as PVCs in the past. Describes a thumping sensation of heart in his chest Patient states in the past he would have palpitations that lasted for up to 15 minutes and occurred every couple of weeks, and symptoms occurred at rest. Patient states for the last 2 weeks has had increased frequency palpitations which occur sometimes multiple times throughout the day and can last for up to 1 hour. Patient states that the symptoms always occur at rest. Denies any associated chest pain, shortness of breath, dizziness. Patient reports chronic shortness of breath with exertion walking approximately 1/8 of a mile, denies any increased shortness of breath. Also reports chronic bilateral lower extremity edema, denies any worsening. Patient denies any recent medication changes. Reports drinks 40 ounces of Mountain Dew a week, denies any increased caffeine use, OTC decongestant use or alcohol use. Denies fever/chills, diaphoresis, N/V/D/C, LYNN, dizziness, syncope, vision changes, neck pain, CP, SOB, orthopnea, cough, sore throat, choking, otalgia, rhinorrhea, abdominal pain, paresthesias, weakness, rashes, urinary symptoms. History echo 2017: EF: 55-59%, mild AV sclerosis without stenosis. Mild aortic regurgitation, mild tricuspid regurgitation, mild pulmonary hypertension. Aortic root 3.9 cm. Proximal descending thoracic aorta moderately enlarged at 4.4 cm Allergies Allergy/AdvReac Type Severity Reaction Status Date / Time Iodinated Contrast- Oral and Allergy Severe KIDNEY Unverified 04/12/19 17:19 IV Dye PROBLEMS amoxicillin Allergy Unknown . Verified 04/12/19 17:19 atorvastatin Allergy Unknown ` Verified 04/12/19 17:19 gemfibrozil Allergy Unknown . Verified 04/12/19 17:19 Penicillins Allergy Unknown Verified 04/12/19 17:19 rosuvastatin Allergy Unknown . Verified 04/12/19 17:19 morphine AdvReac Mild PT DOES Verified 04/12/19 17:19 NOT LIKE THE WAY IT MAKES HIM FEEL Home Medications Home Medications Medication Instructions Recorded Confirmed Type aspirin [Aspir-81] 81 mg PO DAILY 04/12/19 04/12/19 History cholecalciferol (vitamin D3) 2,000 unit PO QPM 04/12/19 04/12/19 History [Vitamin D3] felodipine 10 mg PO QPM 04/12/19 04/12/19 History fenofibrate 160 mg PO QAM 04/12/19 04/12/19 History folic acid 1 mg PO QPM 04/12/19 04/12/19 History furosemide 40 mg PO QAM 04/12/19 04/12/19 History hydralazine 25 mg PO DAILY@,14 04/12/19 04/12/19 History hydralazine 50 mg PO HS 04/12/19 04/12/19 History isosorbide mononitrate 30 mg PO QAM 04/12/19 04/12/19 History lisinopril 40 mg PO QPM 04/12/19 04/12/19 History metoprolol succinate 25 mg PO BID 04/12/19 04/12/19 History omeprazole 20 mg PO DAILY 04/12/19 04/12/19 History Past Med/Surg History Medical History Obesity (Chronic) Chronic anemia (Chronic) FLORIDALMA (obstructive sleep apnea) (Chronic) CKD (chronic kidney disease), stage IV (Chronic) Hypertension (Chronic) Pneumonia (Resolved) Chronic kidney disease (Chronic) Fracture of right tibial plateau (Resolved) Premature ventricular beat (Acute) Surgical History History of AAA (abdominal aortic aneurysm) repair (Chronic) Family History Other Aneurysm Social History Preferred Language: Yi marital status: Current Living Situation: Spouse current occupational status: retired Feels Safe at Home: Yes Smoking Status: Former smoker Hx Alcohol Use: No Hx Substance Use: No Review of Systems Review of Systems: All systems reviewed & are unremarkable except as noted in HPI & below Physical Exam Physical Exam: General: no acute distress, obese Head: normocephalic, atraumatic Eyes: PERRL, EOM's intact, conjunctiva non-injected, anicteric ENT: normal inspection external ears, nose, mucous membranes moist Neck: supple, trachea midline Lungs: clear, no respiratory distress, no wheezing/rhonchi/rales CV: RRR, no murmur, 1+ pretibial edema Abd: normal BS, soft, non-tender Ext: no cyanosis, no calf tenderness Neuro: A&O x 3, no focal deficits noted, normal affect Skin: warm, dry Results & Data Vital Signs (Past 12 Hours) Vital Signs Temp Pulse Pulse Resp BP BP Pulse Ox 04/12/19 18:30 76 18 159/97 H 97 04/12/19 17:02 78 20 96 04/12/19 16:27 36.7 C 63 20 190/74 H 96 Laboratory Results Short CBC 04/12/19 Range/Units 16:38 WBC 4.06 L (4.8-10.8) K/uL Hgb 10.1 L (14.0-18.0) g/dL Hct 30.6 L (42-52) % Plt Count 158 (130-400) K/uL BMP 04/12/19 16:38 Sodium 138 Potassium 4.3 Chloride 107 Carbon Dioxide 23 BUN 69 H Creatinine 3.69 H Glucose 121 H Calcium 8.5 Cardiac Enzymes 04/12/19 Range/Units 16:38 Troponin I < 0.015 (0-0.045) ng/ml Diagnostic Findings CXR: IMPRESSION: No acute cardiopulmonary findings. No change in appearance of the chest. ECG Rhythm: sinus rhythm Findings: + PVC Code Status & VTE Plan VTE Prophylaxis Plan VTE Prophylaxis will be ordered: Yes Supervising Physician Co-Signing Physician Notes I, Dr. Karthik Baez, have seen and examined the patient with physician licensed investment sales assistant and agree with the assessment and plan and would like to comment This is an 83 year old Male who follows with cardiology service [facility], with history of known premature ventricular contractions. In the past 2 weeks patient feels that he has been having more sensations of premature ventricular contractions which has been being experience as palpitations with not associated symptoms of sharp pain or of shortness of breath or of dizziness or of lightheadedness. On telemetry monitoring in the ER the heart rate and rhythm is generally bradycardic in the 60s. Patient denied acute discomfort at time of exam On exam: General; no acute distress Heart: bradycardic Lungs: clear to auscultation bilaterally, no wheezing Abdomen: soft, no acute tenderness to palpation, truncal obesity Extremitiies: bilateral lower extremity edema Neuro: awake, verbal, cooperative on exam At this time will continue to monitor patient on telemetry. Continue patients home dose metoprolol and diuretics for now. Awaiting cardiology evaluation which will be by tomorrow on 04/13/19 at which patients telemetry data can be reviewed in full. Agree with other assessment and plan of medical issues as documented by physician licensed investment sales assistant Patients family contacts ([phone]) and ([phone]) My colleague Dr. William will be following the patient starting on 04/13/19
[2019-04-12] MEDS ORDERED: ACETAMINOPHEN 325 MG TAB PO PRN (20:39)
[2019-04-12] MEDS: CHOLECALCIFEROL 1,000 UNITS TAB PO SCH (21:59)
[2019-04-12] MEDS: LISINOPRIL 40 MG TAB PO SCH (21:59)
[2019-04-12] MEDS: HydrALAZINE TAB 50 MG TAB PO SCH (21:59)
[2019-04-12] MEDS: FELODIPINE 5 MG TABCR PO SCH (21:59)
[2019-04-12] MEDS: METOPROLOL SUCC 25MG EXT REL TAB PO SCH (21:59)
[2019-04-12] MEDS: FOLIC ACID 1 MG TAB PO SCH (21:59)
[2019-04-12] MEDS: HEPARIN SOD 5,000 UNIT/0.5 ML VIAL SQ SCH (22:02)
[2019-04-13 04:33] LABS: Hematocrit (blood only) 30.8 % (42-52); Hemoglobin 10.1 g/dL (14.0-18.0); Mean Corpuscular Hgb Conc 32.8 g/dL (32-36); Mean Corpuscular Volume 111.6 fL (80-100); Mean Platelet Volume 10.2 fL (7.4-10.4); Platelet Count 152 K/uL (130-400); RDW Coefficient of Variation 16.5 % (11.5-14.5); RDW Standard Deviation 67.4 fL (36.4-46.3); Red Blood Count 2.76 M/uL (4.7-6.1); White Blood Count 4.23 K/uL (4.8-10.8)
[2019-04-13 04:53] LABS: BUN Creatinine Ratio 19.6 (10-20); Calcium 8.5 mg/dl (8.5-10.1); Creatinine Clr Calc Pharmacy 20.1 ml/min; Est GFR (African American) 18.1; Est GFR (Non-African American) 15.6; Potassium 4.4 mmol/L (3.5-5.1)
[2019-04-13 04:57] LABS: Troponin I 0.023 ng/ml (0-0.045)
[2019-04-13] MEDS: HEPARIN SOD 5,000 UNIT/0.5 ML VIAL SQ SCH ×3 (05:59→21:39)
[2019-04-13] MEDS ORDERED: PERFLUTREN LIPID MICROSPHERE (DEFINITY) IV ONE (07:29)
[2019-04-13] MEDS: PANTOprazole 40 MG TAB PO SCH (09:28)
[2019-04-13] MEDS: ASPIRIN 81 MG ECTAB PO SCH (09:28)
[2019-04-13] MEDS: HydrALAZINE TAB 50 MG TAB PO SCH ×3 (09:28→21:40)
[2019-04-13] MEDS: METOPROLOL SUCC 25MG EXT REL TAB PO SCH ×2 (09:29→21:39)
[2019-04-13] MEDS: FUROSEMIDE 40 MG TAB PO SCH (09:29)
[2019-04-13] MEDS: ISOSORBIDE MONO EXTENDED REL 30 MG TABCR PO SCH (09:29)
--- NOTE | 2019-04-13 13:06 | Cardiology Consultation ---
Date of Consultation April 13, 2019 Assessment & Plan (1) PVC (premature ventricular contraction): (2) Obesity: (3) Chronic anemia: (4) History of AAA (abdominal aortic aneurysm) repair: (5) FLORIDALMA (obstructive sleep apnea): (6) PAD (peripheral artery disease): (7) CKD (chronic kidney disease), stage IV: (8) Dyslipidemia: I am not certain how compliant the patient has been recently with his medications. He has not had a recent visit to the cardiology clinic. I suspect that some of his medications, he may have not been compliant. After the start of metoprolol his ventricular ectopy has resolved. I do not believe he is in congestive heart failure. His electrolytes are okay despite his renal failure. I would recommend an additional day on telemetry. We may have to increase his medications to better control his blood pressure. I will review his echocardiogram. History of Present Illness Attending Physician: Piper William, DO History of Present Illness This is an 83-year-old male patient whom I follow in my clinic with severe diffuse arteriosclerotic vascular disease. He has not had recent follow-up. He was at home and over the past several days before admission he was having frequent heart palpitations and decided to present to the emergency department where he was having frequent PVCs including bigeminy and triplets. I am unc ertain as to whether the patient was on his medications. He was started on his home medications after admission and also received metoprolol. Patient states the past he was on atenolol and was having lightheadedness and his beta-aki was stopped. I am uncertain as to the timing but I think it was several years ago. After the metoprolol was started his ventricular ectopy has diminished and he is currently in a normal sinus rhythm. He denies shortness of breath or chest pain. Past medical history: 1. Severe diffuse arteriosclerotic vascular disease 2. Dyslipidemia with intolerance to statins 3. Ischemic heart disease with chronic angina 4. 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 Hypertension 6. Sleep apnea 7. Peripheral vascular disease including abdominal aortic aneurysm repair, left and right popliteal aneurysms and bilateral lower extremity disease with claudication Allergies Allergy/AdvReac Type Severity Reaction Status Date / Time Iodinated Contrast- Oral and Allergy Severe KIDNEY Unverified 04/12/19 17:19 IV Dye PROBLEMS amoxicillin Allergy Unknown . Verified 04/12/19 17:19 atorvastatin Allergy Unknown ` Verified 04/12/19 17:19 gemfibrozil Allergy Unknown . Verified 04/12/19 17:19 Penicillins Allergy Unknown Verified 04/12/19 17:19 rosuvastatin Allergy Unknown . Verified 04/12/19 17:19 morphine AdvReac Mild PT DOES Verified 04/12/19 17:19 NOT LIKE THE WAY IT MAKES HIM FEEL Home Medications Home Medications Medication Instructions Recorded Confirmed Type aspirin [Aspir-81] 81 mg PO DAILY 04/12/19 04/12/19 History cholecalciferol (vitamin D3) 2,000 unit PO QPM 04/12/19 04/12/19 History [Vitamin D3] felodipine 10 mg PO QPM 04/12/19 04/12/19 History fenofibrate 160 mg PO QAM 04/12/19 04/12/19 History folic acid 1 mg PO QPM 04/12/19 04/12/19 History furosemide 40 mg PO QAM 04/12/19 04/12/19 History hydralazine 25 mg PO DAILY@04/12/19 04/12/19 History hydralazine 50 mg PO HS 04/12/19 04/12/19 History isosorbide mononitrate 30 mg PO QAM 04/12/19 04/12/19 History lisinopril 40 mg PO QPM 04/12/19 04/12/19 History metoprolol succinate 25 mg PO BID 04/12/19 04/12/19 History omeprazole 20 mg PO DAILY 04/12/19 04/12/19 History Patient History Medical History Obesity (Chronic) Chronic anemia (Chronic) FLORIDALMA (obstructive sleep apnea) (Chronic) CKD (chronic kidney disease), stage IV (Chronic) Hypertension (Chronic) Pneumonia (Resolved) Chronic kidney disease (Chronic) Fracture of right tibial plateau (Resolved) Premature ventricular beat (Acute) Surgical History History of AAA (abdominal aortic aneurysm) repair (Chronic) Family History Other Aneurysm Social History Preferred Language: Faroese Communication Ability: Effective Communication Ability Comment: [facility] Material Spreader Required: No Beliefs That Will Affect Care: None marital status: Current Living Situation: Spouse current occupational status: retired Other Information That Helps Us Care for You: No Feels Safe at Home: Yes Safety Concerns: Feels Safe At This Time Smoking Status: Former smoker Hx Alcohol Use: No Hx Substance Use: No Review of Systems Review of Systems: All systems reviewed & are unremarkable except as noted in HPI & below Nothing additional Physical Exam Physical Exam: General: no acute distress and stated age Head: normocephalic, no masses, lesions, tenderness or abnormalities Eyes: conjunctiva are pink and non-injected, sclera clear Neck: supple, no adenopathy, no bruits, normal jugular venous pulse, no hepatojugular reflux Chest: normal shape and normal respiratory effort Lungs: clear to auscultation and percussion Cardiac Exam: - regular rate & rhythm, no murmurs gallops or rubs - normal S1, normal S2 Pulses: 2(+) throughout Abdomen: abdomen soft, non-tender, no abnormal masses and no hepatosplenomegaly Musculoskeletal: no gait disturbance, no joint inflammation, no deforming arthritis Extremities: no edema and no cyanosis Neuro: grossly normal exam Results & Data Vital Signs (Past 12 Hours) Vital Signs Temp Pulse Pulse Resp BP BP Pulse Ox 04/13/19 12:00 36.2 C L 62 20 171/71 H 96 04/13/19 08:00 56 L 04/13/19 07:00 36.8 C 59 L 20 168/68 H 94 04/13/19 04:09 36.6 C 61 18 139/62 98 04/13/19 01:30 67 Laboratory Results Laboratory Results - last 24 hr 04/12/19 04/12/19 04/12/19 16:38 16:38 16:38 WBC 4.06 L RBC 2.72 L Hgb 10.1 L Hct 30.6 L MCV 112.5 H MCH 37.1 H MCHC 33.0 RDW Std Deviation 68.0 H RDW Coeff of Maryan 16.7 H Plt Count 158 MPV 10.4 Immature Gran % (Auto) 0.2 Neut % (Auto) 39.9 Lymph % (Auto) 29.6 [place] % (Auto) 27.3 Eos % (Auto) 2.5 Baso % (Auto) 0.5 Immature Gran # (Auto) 0.01 Neut # (Auto) 1.62 Lymph # (Auto) 1.20 [place] # (Auto) 1.11 H Eos # (Auto) 0.10 Baso # (Auto) 0.02 Anisocytosis Present PT 11.3 INR 1.1 APTT 24.4 PTT Ratio 0.9 Sodium 138 Potassium 4.3 Chloride 107 Carbon Dioxide 23 Anion Gap 8.0 BUN 69 H Creatinine 3.69 H Est Cr Clr Drug Dosing 19.2 Est GFR ( Amer) 16.3 Est GFR (Non-Af Amer) 14.1 BUN/Creatinine Ratio 18.6 Glucose 121 H Calcium 8.5 Magnesium 2.3 Troponin I < 0.015 NT-Pro-B Natriuret Pep 266 Lipase 205 TSH 04/12/19 04/12/19 04/13/19 16:38 21:56 04:03 WBC RBC Hgb Hct MCV MCH MCHC RDW Std Deviation RDW Coeff of Maryan Plt Count MPV Immature Gran % (Auto) Neut % (Auto) Lymph % (Auto) [place] % (Auto) Eos % (Auto) Baso % (Auto) Immature Gran # (Auto) Neut # (Auto) Lymph # (Auto) [place] # (Auto) Eos # (Auto) Baso # (Auto) Anisocytosis PT INR APTT PTT Ratio Sodium 139 Potassium 4.4 Chloride 108 H Carbon Dioxide 24 Anion Gap 7.0 BUN 66 H Creatinine 3.39 H D Est Cr Clr Drug Dosing 20.1 Est GFR ( Amer) 18.1 Est GFR (Non-Af Amer) 15.6 BUN/Creatinine Ratio 19.6 Glucose 87 Calcium 8.5 Magnesium Troponin I < 0.015 0.023 NT-Pro-B Natriuret Pep Lipase TSH 2.940 04/13/19 04:03 WBC 4.23 L RBC 2.76 L Hgb 10.1 L Hct 30.8 L MCV 111.6 H MCH 36.6 H MCHC 32.8 RDW Std Deviation 67.4 H RDW Coeff of Maryan 16.5 H Plt Count 152 MPV 10.2 Immature Gran % (Auto) Neut % (Auto) Lymph % (Auto) [place] % (Auto) Eos % (Auto) Baso % (Auto) Immature Gran # (Auto) Neut # (Auto) Lymph # (Auto) [place] # (Auto) Eos # (Auto) Baso # (Auto) Anisocytosis PT INR APTT PTT Ratio Sodium Potassium Chloride Carbon Dioxide Anion Gap BUN Creatinine Est Cr Clr Drug Dosing Est GFR ( Amer) Est GFR (Non-Af Amer) BUN/Creatinine Ratio Glucose Calcium Magnesium Troponin I NT-Pro-B Natriuret Pep Lipase TSH Medications Administered Current Inpatient Medications Acetaminophen (Tylenol) 650 mg PO Q4H PRN PRN Reason: Pain or Fever Stop: 05/12/19 20:38 Aspirin (Ecotrin Ectab) 81 mg PO DAILY ELISE Stop: 05/13/19 08:59 Last Admin: 04/13/19 09:28 Dose: 81 mg Documented by: Felodipine (Plendil) 10 mg PO QPM ELISE Stop: 05/12/19 20:59 Last Admin: 04/12/19 21:59 Dose: 10 mg Documented by: Folic Acid (Folvite) 1 mg PO QPM ELISE Stop: 05/12/19 20:59 Last Admin: 04/12/19 21:59 Dose: 1 mg Documented by: Furosemide (Lasix) 40 mg PO QAM [facility] Stop: 05/13/19 08:59 Last Admin: 04/13/19 09:29 Dose: 40 mg Documented by: Heparin Sodium (Porcine) (Heparin Sodium (Porcine)) 5,000 units SQ Q8 ELISE Stop: 05/12/19 21:59 Last Admin: 04/13/19 05:59 Dose: 5,000 units Documented by: Hydralazine HCl (Apresoline) 50 mg PO HS ELISE Stop: 05/12/19 20:59 Last Admin: 04/12/19 21:59 Dose: 50 mg Documented by: Hydralazine HCl (Apresoline) 25 mg PO DAILY@ [facility] Stop: 05/13/19 07:59 Last Admin: 04/13/19 12:12 Dose: 25 mg Documented by: Isosorbide Mononitrate (Imdur Extended Rel) 30 mg PO QAM [facility] Stop: 05/13/19 08:59 Last Admin: 04/13/19 09:29 Dose: 30 mg Documented by: Lisinopril (Zestril) 40 mg PO QPM ELISE Stop: 05/12/19 20:59 Last Admin: 04/12/19 21:59 Dose: 40 mg Documented by: Metoprolol Succinate (Toprol Xl) 25 mg PO BID ELISE Stop: 05/12/19 20:59 Last Admin: 04/13/19 09:29 Dose: 25 mg Documented by: Miscellaneous (Order Awaiting Action) 1 ea N/A QS [facility] Stop: 05/13/19 00:00 Last Admin: 04/13/19 09:28 Dose: Not Given Documented by: Pantoprazole Sodium (Protonix) 40 mg PO DAILY [facility] Stop: 05/13/19 08:59 Last Admin: 04/13/19 09:28 Dose: 40 mg Documented by: Vitamin D (Vitamin D3) 2,000 units PO QPM ELISE Stop: 05/12/19 20:59 Last Admin: 04/12/19 21:59 Dose: 2,000 units Documented by:
--- NOTE | 2019-04-13 13:50 | Hospitalist Progress Note ---
Date of Service April 13, 2019 Assessment & Plan (1) Palpitations: Occasional PVCs seen on telemetry review overnight. Pt was continued on his Toprol XL 25mg PO BID, but is feeling better since admission. So uncertain if he is actually taking this betablocker at home. He reports rare caffeine use but is reporting an OTC supplement called Blood Boost with unknown ingredients. Would recommend holding this until verified by physician. Appreciate Cardiology recs. Cont telemetry overnight. (2) CKD (chronic kidney disease), stage IV: creatinine is at baseline. Renally dose meds and avoid nephrotoxic substances. (3) Chronic anemia: H/H: 05/29 (baseline Hgb: 11) -Monitor CBC, iron studies in am. (4) Hypertension: In ER BP 190/74 down to 159/97 -Continue felodipine, hydralazine, lisinopril, metoprolol succinate, isosorbide. He is also on lasix, so wouldn't add any additional diuretic such as HCTZ. Defer to cardiology to tweak his regimen as needed. followup with Nephrology as outpatient. (5) PAD (peripheral artery disease): h/o left popliteal aneurysm repair in 2006 -Continue aspirin, metoprolol, lisinopril. Intolerant of statins. (6) History of AAA (abdominal aortic aneurysm) repair: History echo 2017: EF: 55-59%, mild AV sclerosis without stenosis. Mild aortic regurgitation, mild tricuspid regurgitation, mild pulmonary hypertension. Aortic root 3.9 cm. Proximal descending thoracic aorta moderately enlarged at 4.4 cm (7) Dyslipidemia: Intolerant to statin -Continue fenofibrate (8) FLORIDALMA (obstructive sleep apnea): -CPAP at bedtime (9) DVT prophylaxis: Heparin Full Dispo-likely to home in am. Piper William DO [facility] Hospitalist Subjective Doing well Feels better since admission Denies chest pain No SOB Reports rare caffeine use with 2 mountain dew sodas per week Reports OTC MVI and a supplement called Blood Boost Review of Systems Review of Systems: All systems reviewed & are unremarkable except as noted in HPI & below Physical Exam Physical Exam: CONSTITUTIONAL: WNWD, vitals as above, generally well- appearing EYES: normal conjunctivae, no scleral icterus ENT: MMM RESPIRATORY: clear to auscultation bilaterally, no crackles, rales or wheezes, normal respiratory effort CARDIOVASCULAR: regular rate and rhythm, S1 and 2 heard without murmurs, gallops or rubs, no JVD, no peripheral edema, no carotid bruits GASTROINTESTINAL: normal bowel sounds, soft, nontender, nondistended MUSCULOSKELETAL: strength 5/5 throughout, head is normocephalic and atraumatic, neck supple, normal palpation of chest wall without tenderness SKIN: warm and dry NEUROLOGIC: CN 2-12 grossly intact, no sensory deficit, normal cognition, no gross focal deficits. PSYCHIATRIC: alert cooperative and oriented to person, place and time. Results & Data Vital Signs (Past 12 Hours) Vital Signs Temp Pulse Pulse Resp BP BP Pulse Ox 04/13/19 12:00 36.2 C L 62 20 171/71 H 96 04/13/19 08:00 56 L 04/13/19 07:00 36.8 C 59 L 20 168/68 H 94 04/13/19 04:09 36.6 C 61 18 139/62 98 Laboratory Results Short CBC 04/12/19 04/13/19 Range/Units 16:38 04:03 WBC 4.06 L 4.23 L (4.8-10.8) K/uL Hgb 10.1 L 10.1 L (14.0-18.0) g/dL Hct 30.6 L 30.8 L (42-52) % Plt Count 158 152 (130-400) K/uL BMP 04/12/19 04/13/19 16:38 04:03 Sodium 138 139 Potassium 4.3 4.4 Chloride 107 108 H Carbon Dioxide 23 24 BUN 69 H 66 H Creatinine 3.69 H 3.39 H D Glucose 121 H 87 Calcium 8.5 8.5 Cardiac Enzymes 04/12/19 04/12/19 04/13/19 Range/Units 16:38 21:56 04:03 Troponin I < 0.015 < 0.015 0.023 (0-0.045) ng/ml Medications Administered Current Inpatient Medications Acetaminophen (Tylenol) 650 mg PO Q4H PRN PRN Reason: Pain or Fever Stop: 05/12/19 20:38 Aspirin (Ecotrin Ectab) 81 mg PO DAILY [facility] Stop: 05/13/19 08:59 Last Admin: 04/13/19 09:28 Dose: 81 mg Documented by: Felodipine (Plendil) 10 mg PO QPM ELISE Stop: 05/12/19 20:59 Last Admin: 04/12/19 21:59 Dose: 10 mg Documented by: Folic Acid (Folvite) 1 mg PO QPM ELISE Stop: 05/12/19 20:59 Last Admin: 04/12/19 21:59 Dose: 1 mg Documented by: Furosemide (Lasix) 40 mg PO QAM ELISE Stop: 05/13/19 08:59 Last Admin: 04/13/19 09:29 Dose: 40 mg Documented by: Heparin Sodium (Porcine) (Heparin Sodium (Porcine)) 5,000 units SQ Q8 ELISE Stop: 05/12/19 21:59 Last Admin: 04/13/19 05:59 Dose: 5,000 units Documented by: Hydralazine HCl (Apresoline) 50 mg PO HS ELISE Stop: 05/12/19 20:59 Last Admin: 04/12/19 21:59 Dose: 50 mg Documented by: Hydralazine HCl (Apresoline) 25 mg PO DAILY@ [facility] Stop: 05/13/19 07:59 Last Admin: 04/13/19 12:12 Dose: 25 mg Documented by: Isosorbide Mononitrate (Imdur Extended Rel) 30 mg PO QAM ELISE Stop: 05/13/19 08:59 Last Admin: 04/13/19 09:29 Dose: 30 mg Documented by: Lisinopril (Zestril) 40 mg PO QPM ELISE Stop: 05/12/19 20:59 Last Admin: 04/12/19 21:59 Dose: 40 mg Documented by: Metoprolol Succinate (Toprol Xl) 25 mg PO BID ELISE Stop: 05/12/19 20:59 Last Admin: 04/13/19 09:29 Dose: 25 mg Documented by: Miscellaneous (Order Awaiting Action) 1 ea N/A QS ELISE Stop: 05/13/19 00:00 Last Admin: 04/13/19 09:28 Dose: Not Given Documented by: Pantoprazole Sodium (Protonix) 40 mg PO DAILY [facility] Stop: 05/13/19 08:59 Last Admin: 04/13/19 09:28 Dose: 40 mg Documented by: Vitamin D (Vitamin D3) 2,000 units PO QPM ELISE Stop: 05/12/19 20:59 Last Admin: 04/12/19 21:59 Dose: 2,000 units Documented by:
--- NOTE | 2019-04-13 16:26 | Emergency Department Note ---
Entered by April Velasquez acting as a scribe for History of Present Illness General Chief complaint: Cardiac Assessment Stated complaint: TIGHTNESS IN CHEST Time Seen by Provider: 04/12/19 16:43 Source: patient History of Present Illness Onset (ago): week(s) (a few weeks ago) Location: chest Pain Consistency: + other (worsening) Maximum Pain Intensity: 2 Quality: + other (heart palpitations) Associated symptoms: + denies other symptoms (hemoptysis, LOC) and + other (chest fullness); no chest pain and no cough The patient is an 83 year old male who presents to the Emergency Room with complaints of worsening heart palpitations starting a few weeks ago. The patient states that he has had PVCs in the past and he used to get them for 15-20 minutes before it would pass. He reports that now it is coming more frequently and lasting longer. He states that because of it he hasnt been feeling well. He reports that his chest has felt full. The patient notes that he has not taken a Nitroglycerin for it since it doesnt feel like a pain. The patient denies recent travel, hemoptysis, cough, use of steroids, use of hormone pills, use of blood thinners, and LOC. Home Medications Home Medications Medication Instructions Recorded Confirmed Type aspirin [Aspir-81] 81 mg PO DAILY 04/12/19 04/12/19 History cholecalciferol (vitamin D3) 2,000 unit PO QPM 04/12/19 04/12/19 History [Vitamin D3] felodipine 10 mg PO QPM 04/12/19 04/12/19 History fenofibrate 160 mg PO QAM 04/12/19 04/12/19 History folic acid 1 mg PO QPM 04/12/19 04/12/19 History furosemide 40 mg PO QAM 04/12/19 04/12/19 History hydralazine 25 mg PO DAILY@08,14 04/12/19 04/12/19 History hydralazine 50 mg PO HS 04/12/19 04/12/19 History isosorbide mononitrate 30 mg PO QAM 04/12/19 04/12/19 History lisinopril 40 mg PO QPM 04/12/19 04/12/19 History metoprolol succinate 25 mg PO BID 04/12/19 04/12/19 History omeprazole 20 mg PO DAILY 04/12/19 04/12/19 History Allergies Allergy/AdvReac Type Severity Reaction Status Date / Time Iodinated Contrast- Oral and Allergy Severe KIDNEY Unverified 04/12/19 17:19 IV Dye PROBLEMS amoxicillin Allergy Unknown . Verified 04/12/19 17:19 atorvastatin Allergy Unknown ` Verified 04/12/19 17:19 gemfibrozil Allergy Unknown . Verified 04/12/19 17:19 Penicillins Allergy Unknown Verified 04/12/19 17:19 rosuvastatin Allergy Unknown . Verified 04/12/19 17:19 morphine AdvReac Mild PT DOES Verified 04/12/19 17:19 NOT LIKE THE WAY IT MAKES HIM FEEL Past Med/Surg History Medical History Obesity (Chronic) Chronic anemia (Chronic) FLORIDALMA (obstructive sleep apnea) (Chronic) CKD (chronic kidney disease), stage IV (Chronic) Hypertension (Chronic) Pneumonia (Resolved) Chronic kidney disease (Chronic) Fracture of right tibial plateau (Resolved) Premature ventricular beat (Acute) Surgical History History of AAA (abdominal aortic aneurysm) repair (Chronic) Family History Other Aneurysm Social History Preferred Language: Algerian Communication Ability: Effective 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 and A total of 10 systems reviewed and were otherwise negative Physical Exam Vital Signs Vital Signs - 24 hr 04/12/19 16:27 04/12/19 17:02 04/12/19 18:30 Temperature 36.7 C Temperature Source Oral Sepsis Recent Fever Within 48 Hours No Sepsis New/Unexplained Change in Mental Status No Sepsis Action Taken by Nursing No Action Required Pulse Rate 63 78 Pulse Rate [Apical] 76 Pulse Rhythm Regular Pulse Strength Normal Respiratory Rate 20 20 18 Respiratory Effort / Characteristics Non-Labored Spontaneous Non-Labored Spontaneous Respiratory Depth Normal Normal Respiratory Pattern Regular Regular Blood Pressure 190/74 H Blood Pressure [Right Arm] 159/97 H Blood Pressure Mean 112 Blood Pressure Mean [Right Arm] 117 Blood Pressure Position Sitting Pulse Oximetry 96 96 97 Oxygen Delivery Method Room Air Room Air Room Air GENERAL: He is oriented to person, place, and time. He appears well-developed and well-nourished. He does not appear distressed. HENT: Exam performed. - Head: Normocephalic and atraumatic. - Right Ear: External ear normal. No mastoid tenderness. - Left Ear: External ear normal. No mastoid tenderness. - Mouth/Throat: The oropharynx is clear and moist. No trismus in the jaw. No dental abscesses or uvula swelling. No oropharyngeal exudate or tonsillar abscesses. EYES: Conjunctivae and EOM are normal. Pupils are equal, round, and reactive to light. Right eye exhibits no discharge. Left eye exhibits no discharge. No scleral icterus. NECK: Normal range of motion. Neck supple. No JVD present. No spinous process tenderness present. No carotid bruit present. No rigidity. No tracheal deviation and normal range of motion present. No Brudzinski's sign and no Kernig's sign noted. CV: Normal rate, irregular rhythm, normal heart sounds and intact distal pulses. There is no peripheral edema. Palpable radial pulses bue. PULM/CHEST: Effort normal and breath sounds normal. No respiratory distress. No stridor. He has no wheezes. He has no rales. - Chest Wall: He exhibits no tenderness. ABD: The abdomen is soft. Bowel sounds are normal. He has no distension. No mass is present. There is no tenderness. There is no rebound, no guarding, no Ramírez's sign and no tenderness at McBurney's point. Rovsig negative. MUSC/SKEL: Normal range of motion. There is no peripheral edema, tenderness or deformity. LYMPH: No cervical adenopathy. NEURO: He is alert and oriented to person, place, and time. He has normal strength. No cranial nerve deficit or sensory deficit. Coordination and gait normal. GCS eye subscore is 4. GCS verbal subscore is 5. GCS motor subscore is 6. Cerebellar tests wnl. SKIN: Skin is warm and dry. He is not diaphoretic. PSYCH: He has a normal mood and affect. Behavior is normal. Judgment and thought content normal. Course 1648: Past medical records reviewed. The patient was evaluated in room B4B. A complete history and physical exam was performed. 1741: Vital signs stable. The patient continues to be in what appears to be bigeminy on the occasional caregiver. His labs and imaging were within normal limits. After discussing the patient's case with Dr. De La Cruz, I will admit to the [facility].I discussed the patient's case with Dr. Carrington Cardiology. He states that he is the one who sent the patient in as the patient hasn't followed up with them in the past 2 years and he called them today. He requests that the patient be admitted and will follow up with him as an inpatient. I [facility] the patient's [facility] She will evaluate the patient for further management. Consultations Consultation #1: I discussed the patient's case with Dr. Charissa Gonzalez. He states that he is the one who sent the patient in as the patient hasn't followed up with them in the past 2 years and he called them today. He requests that the patient be admitted and will follow up with him as an inpatient. Time: 17:36 Consultation #2: I discussed the patient's case with [facility] She will evaluate the patient for further management. Time: 17:45 Administered Medications Aspirin (Ecotrin Ectab) 81 mg PO DAILY [facility] Stop: 05/13/19 08:59 Last Admin: 04/13/19 09:28 Dose: 81 mg Documented by: [id number] Felodipine (Plendil) 10 mg PO QPM [facility]ISE Stop: 05/12/19 20:59 Last Admin: 04/12/19 21:59 Dose: 10 mg Documented by: [id number] Folic Acid (Folvite) 1 mg PO QPM ELISE Stop: 05/12/19 20:59 Last Admin: 04/12/19 21:59 Dose: 1 mg Documented by: [id number] Furosemide (Lasix) 40 mg PO QAM [facility]ISE Stop: 05/13/19 08:59 Last Admin: 04/13/19 09:29 Dose: 40 mg Documented by: [id number] Heparin Sodium (Porcine) (Heparin Sodium (Porcine)) 5,000 units SQ Q8 [facility]ISE Stop: 05/12/19 21:59 Last Admin: 04/13/19 13:56 Dose: 5,000 units Documented by: [id number] Cosigned by: [id number] Admin: 04/13/19 05:59 Dose: 5,000 units Documented by: [id number] Cosigned by: [id number] Admin: 04/12/19 22:02 Dose: 5,000 units Documented by: [id number] Cosigned by: [id number] Hydralazine HCl (Apresoline) 50 mg PO HS ELISE Stop: 05/12/19 20:59 Last Admin: 04/12/19 21:59 Dose: 50 mg Documented by: [id number] Hydralazine HCl (Apresoline) 25 mg PO DAILY@ [facility] Stop: 05/13/19 07:59 Last Admin: 04/13/19 12:12 Dose: 25 mg Documented by: [id number] Admin: 04/13/19 09:28 Dose: 25 mg Documented by: [id number] Isosorbide Mononitrate (Imdur Extended Rel) 30 mg PO QAM ELISE Stop: 05/13/19 08:59 Last Admin: 04/13/19 09:29 Dose: 30 mg Documented by: [id number] Lisinopril (Zestril) 40 mg PO QPM ELISE Stop: 05/12/19 20:59 Last Admin: 04/12/19 21:59 Dose: 40 mg Documented by: [id number] Metoprolol Succinate (Toprol Xl) 25 mg PO BID ELISE Stop: 05/12/19 20:59 Last Admin: 04/13/19 09:29 Dose: 25 mg Documented by: [id number] Admin: 04/12/19 21:59 Dose: 25 mg Documented by: [id number] Miscellaneous (Order Awaiting Action) 1 ea N/A QS [facility] Stop: 05/13/19 00:00 Last Admin: 04/13/19 15:05 Dose: Not Given Documented by: [id number] Admin: 04/13/19 09:28 Dose: Not Given Documented by: [id number] Admin: 04/13/19 00:25 Dose: Not Given Documented by: [id number] Pantoprazole Sodium (Protonix) 40 mg PO DAILY [facility] Stop: 05/13/19 08:59 Last Admin: 04/13/19 09:28 Dose: 40 mg Documented by: [id number] Vitamin D (Vitamin D3) 2,000 units PO QPM ELISE Stop: 05/12/19 20:59 Last Admin: 04/12/19 21:59 Dose: 2,000 units Documented by: [id number] Discontinued Medications Aspirin (Aspirin) 324 mg PO NOW STA Stop: 04/12/19 16:54 Last Admin: 04/12/19 16:58 Dose: 324 mg Documented by: [id number] Perflutren Lipid Microsphere (Definity) 2 ml IV ONCE ONE Stop: 04/13/19 07:30 Last Admin: 04/13/19 07:30 Dose: 2 ml Documented by: [id number] Medical Decision Making Medical Records Attestation: I reviewed the patient's medical records. Home Medications Current Medication List: was personally reviewed by me Laboratory Data Attestation: I reviewed the patient's lab results. Result diagrams: 04/13/19 04:03 04/13/19 04:03 Lab Results 04/12/19 04/12/19 04/12/19 Range/Units 16:38 16:38 16:38 WBC 4.06 L (4.8-10.8) K/uL RBC 2.72 L (4.7-6.1) M/uL Hgb 10.1 L (14.0-18.0) g/dL Hct 30.6 L (42-52) % MCV 112.5 H (80-100) fL MCH 37.1 H (25-34) pg MCHC 33.0 (32-36) g/dL RDW Std Deviation 68.0 H (36.4-46.3) fL RDW Coeff of Maryan 16.7 H (11.5-14.5) % Plt Count 158 (130-400) K/uL MPV 10.4 (7.4-10.4) fL Immature Gran % (Auto) 0.2 % Neut % (Auto) 39.9 % Lymph % (Auto) 29.6 % [place] % (Auto) 27.3 % Eos % (Auto) 2.5 % Baso % (Auto) 0.5 % Immature Gran # (Auto) 0.01 (0.00-0.02) K/uL Neut # (Auto) 1.62 (1.4-6.5) K/uL Lymph # (Auto) 1.20 (1.2-3.4) K/uL [place] # (Auto) 1.11 H (0.11-0.59) K/uL Eos # (Auto) 0.10 (0-0.5) K/uL Baso # (Auto) 0.02 (0-0.2) K/uL Anisocytosis Present PT 11.3 (9.0-12.0) Seconds INR 1.1 (0.9-1.1) APTT 24.4 (21.0-31.0) Seconds PTT Ratio 0.9 Sodium 138 (136-145) mmol/L Potassium 4.3 (3.5-5.1) mmol/L Chloride 107 (98-107) mmol/L Carbon Dioxide 23 (21-32) mmol/L Anion Gap 8.0 (3-11) BUN 69 H (7-18) mg/dl Creatinine 3.69 H (0.6-1.4) mg/dl Est Cr Clr Drug Dosing 19.2 ml/min Est GFR ( Amer) 16.3 Est GFR (Non-Af Amer) 14.1 BUN/Creatinine Ratio 18.6 (10-20) Glucose 121 H (70-99) mg/dl Calcium 8.5 (8.5-10.1) mg/dl Magnesium 2.3 (1.8-2.4) mg/dl Troponin I < 0.015 (0-0.045) ng/ml NT-Pro-B Natriuret Pep 266 (0-1800) pg/ml Lipase 205 (73-393) U/L TSH (0.300-4.500) uIu/ml 04/12/19 Range/Units 16:38 WBC (4.8-10.8) K/uL RBC (4.7-6.1) M/uL Hgb (14.0-18.0) g/dL Hct (42-52) % MCV (80-100) fL MCH (25-34) pg MCHC (32-36) g/dL RDW Std Deviation (36.4-46.3) fL RDW Coeff of Maryan (11.5-14.5) % Plt Count (130-400) K/uL MPV (7.4-10.4) fL Immature Gran % (Auto) % Neut % (Auto) % Lymph % (Auto) % [place] % (Auto) % Eos % (Auto) % Baso % (Auto) % Immature Gran # (Auto) (0.00-0.02) K/uL Neut # (Auto) (1.4-6.5) K/uL Lymph # (Auto) (1.2-3.4) K/uL [place] # (Auto) (0.11-0.59) K/uL Eos # (Auto) (0-0.5) K/uL Baso # (Auto) (0-0.2) K/uL Anisocytosis PT (9.0-12.0) Seconds INR (0.9-1.1) APTT (21.0-31.0) Seconds PTT Ratio Sodium (136-145) mmol/L Potassium (3.5-5.1) mmol/L Chloride (98-107) mmol/L Carbon Dioxide (21-32) mmol/L Anion Gap (3-11) BUN (7-18) mg/dl Creatinine (0.6-1.4) mg/dl Est Cr Clr Drug Dosing ml/min Est GFR ( Amer) Est GFR (Non-Af Amer) BUN/Creatinine Ratio (10-20) Glucose (70-99) mg/dl Calcium (8.5-10.1) mg/dl Magnesium (1.8-2.4) mg/dl Troponin I (0-0.045) ng/ml NT-Pro-B Natriuret Pep (0-1800) pg/ml Lipase (73-393) U/L TSH 2.940 (0.300-4.500) uIu/ml Imaging Data Radiologist's Impression: Radiology results as stated below per my review and the radiologist's interpretation: XR chest 2V routine CLINICAL HISTORY: Chest Pain COMPARISON STUDY: Chest radiograph November 28, 2016. FINDINGS: Lung volumes are normal. Lungs are clear. There is no pneumothorax or pleural effusion. Mild cardiomegaly is noted. Mediastinal contours are normal. There is no evidence for pulmonary edema. IMPRESSION: No acute cardiopulmonary findings. No change in appearance of the chest. Electronically signed by: Ephraim Toledo M.D. 04/12/2019 5:29 PM ECG Data Attestation: I personally reviewed and interpreted this ECG as follows: Indication: palpitations Rate (beats per minute): 62 Rhythm: sinus rhythm Findings: + other ([place], QRS, and QT-c intervals are within normal limits, LVH); no ST depression and no ST elevation Additional Comments: REPEAT EKG: Repeat done at 1653 shows sinus rhythm at a rate of 94. [place] and QT-c intervals are within normal limits. QRS interval is 148. No ST elevation or depression. Multiple PVCs are present. He appears to be in a bigeminy pattern. Blood Pressure Blood Pressure Findings: Elevated blood pressure Blood Pressure Disposition: further management by hospitalist [facility] Narrative Vital signs stable. The patient continues to be in what appears to be bigeminy on the occasional caregiver. His labs and imaging were within normal limits. After discussing the patient's case with Dr. De La Cruz, [facility]I discussed the patient's case with Dr. De La Cruz- Cardiology. He states that he is the one who sent the patient in as the patient hasn't followed up with them in the past 2 years and he called them today. He requests that the patient be admitted and will follow up with him as an inpatient. I discussed the patient's case with Velvet Kinney [facility] She will evaluate the patient for further management. Impression & Plan Palpitations Discharge Plan Visit Data *Final* Discharge Date/Time: 04/12/19 20:11 Chief Complaint: Cardiac Assessment Stated Complaint: TIGHTNESS IN CHEST ED Provider: Manish Brian Discharge Problem: Palpitations Patient Disposition: Admitted As Inpatient Discharge Instructions Interventions: ED Discharge Assessment Last Done: 04/12/19 20:11 The scribe's documentation has been prepared under my direction and personally reviewed by me in its entirety. I confirm that the note above accurately reflects all work, treatment, procedures, and medical decision making performed by me.
[2019-04-13] MEDS: LISINOPRIL 40 MG TAB PO SCH (21:40)
[2019-04-13] MEDS: FOLIC ACID 1 MG TAB PO SCH (21:40)
[2019-04-13] MEDS: CHOLECALCIFEROL 1,000 UNITS TAB PO SCH (21:41)
[2019-04-13] MEDS: FELODIPINE 5 MG TABCR PO SCH (21:41)
[2019-04-14] MEDS: HEPARIN SOD 5,000 UNIT/0.5 ML VIAL SQ SCH ×3 (05:39→21:11)
[2019-04-14 06:43] LABS: Hematocrit (blood only) 30.4 % (42-52); Hemoglobin 9.9 g/dL (14.0-18.0); Mean Corpuscular Hgb Conc 32.6 g/dL (32-36); Mean Corpuscular Volume 111.8 fL (80-100); Mean Platelet Volume 10.5 fL (7.4-10.4); Platelet Count 152 K/uL (130-400); RDW Coefficient of Variation 16.8 % (11.5-14.5); RDW Standard Deviation 68.4 fL (36.4-46.3); Red Blood Count 2.72 M/uL (4.7-6.1); White Blood Count 5.81 K/uL (4.8-10.8)
[2019-04-14 07:18] LABS: BUN Creatinine Ratio 18.7 (10-20); Calcium 8.4 mg/dl (8.5-10.1); Creatinine Clr Calc Pharmacy 16.7 ml/min; Est GFR (African American) 17.2; Est GFR (Non-African American) 14.8; Magnesium 2.2 mg/dl (1.8-2.4); Potassium 4.3 mmol/L (3.5-5.1)
[2019-04-14 07:23] LABS: Ferritin 383.2 ng/ml (8-388)
[2019-04-14] MEDS: FUROSEMIDE 40 MG TAB PO SCH (07:51)
[2019-04-14] MEDS: ISOSORBIDE MONO EXTENDED REL 30 MG TABCR PO SCH (07:52)
[2019-04-14] MEDS: ASPIRIN 81 MG ECTAB PO SCH (07:52)
[2019-04-14] MEDS: PANTOprazole 40 MG TAB PO SCH (07:52)
[2019-04-14] MEDS: HydrALAZINE TAB 50 MG TAB PO SCH ×3 (07:52→20:23)
[2019-04-14] MEDS: METOPROLOL SUCC 25MG EXT REL TAB PO SCH ×2 (08:21→20:22)
--- NOTE | 2019-04-14 09:57 | Cardiology Progress Note ---
Date of Service April 14, 2019 Assessment & Plan (1) PVC (premature ventricular contraction): (2) Obesity: (3) Chronic anemia: (4) History of AAA (abdominal aortic aneurysm) repair: (5) FLORIDALMA (obstructive sleep apnea): (6) PAD (peripheral artery disease): (7) CKD (chronic kidney disease), stage IV: (8) Dyslipidemia: The patient's ventricular ectopy has diminished. He is maintained sinus bradycardia throughout the night and day. His blood pressure is of a concern. I have increased his hydralazine to 50 mg 3 times daily.It seems that his medications as an outpatient have been slowly decreased or discontinued. That includes his beta-aki which was stopped and his hydralazine dose which was decreased. I think they were decreased or discontinued for nonspecific complaints. In any case, the addition of a beta-aki has resulted a reduction of his ventricular ectopy. Hopefully increasing the hydralazine to the previous dosage he was taking will improve his blood pressure. I would keep him in the hospital 1 more day so that we can monitor him with the increase in hydralazine. Results & Data Vital Signs (Past 12 Hours) Vital Signs Temp Pulse Pulse Resp BP BP Pulse Ox 04/14/19 08:48 56 L 04/14/19 08:34 36.6 C 60 20 193/74 H 167/72 H 95 04/14/19 04:36 36.4 C L 57 L 18 137/59 L 98 04/14/19 00:00 58 L 04/13/19 23:42 36.8 C 59 L 20 134/61 95
[2019-04-14 11:12] LABS: Folate (Folic Acid) > 24.00 ng/ml (>5.38); Vitamin B12 410 pg/ml (211-911)
--- NOTE | 2019-04-14 12:32 | Hospitalist Progress Note ---
Date of Service April 14, 2019 Assessment & Plan (1) Palpitations: Sinus bradycardia/sinus rhythm with a rate in the high 50s to 60s overnight on Toprol-XL 25 mg p.o. twice daily. Feeling better since admission. Continue this. Of note would recommend holding his blood boost supplement at home. (2) CKD (chronic kidney disease), stage IV: creatinine is at baseline. Renally dose meds and avoid nephrotoxic substances. (3) Hypertension: Elevated overnight, however, nursing was using a blood pressure cuff that was too small for the patient. With appropriately sized cuff, his systolic is still around the 150 range. Continue with the adjustment made by cardiology to increase hydralazine to 50 3 times daily. It is noted by the patient that he has had a reaction to this in the past where he feels some chest sensations. He discussed this with cardiology and will follow up with them later this week. Continue to monitor on telemetry 1 more night. Continue felodipine, hydralazine, lisinopril, metoprolol succinate, isosorbide. He is also on lasix, so wouldn't add any additional diuretic such as HCTZ. He is also a renal patient. Defer to cardiology to tweak his regimen as needed. followup with Nephrology as outpatient. (4) Chronic anemia: Anemia appears to be at baseline. Iron studies reveal an transferrin saturation of 28% ruling out iron deficiency anemia. He also has macrocytic anemia and B12 and folate were checked and were within normal limits. Continue to monitor as outpatient. No acute transfusion at this time. (5) PAD (peripheral artery disease): h/o left popliteal aneurysm repair in 2006 -Continue aspirin, metoprolol, lisinopril. Intolerant of statins. (6) History of AAA (abdominal aortic aneurysm) repair: History echo 2017: EF: 55-59%, mild AV sclerosis without stenosis. Mild aortic regurgitation, mild tricuspid regurgitation, mild pulmonary hypertension. Aortic root 3.9 cm. Proximal descending thoracic aorta moderately enlarged at 4.4 cm (7) Dyslipidemia: Intolerant to statin -Continue fenofibrate (8) FLORIDALMA (obstructive sleep apnea): -CPAP at bedtime (9) DVT prophylaxis: Heparin Full Dispo-likely to home in am. DO [facility] Hospital[facility] Subjective Persistent elevation of BP overnight. Wrong cuff size with repeat still elevated, however, when cuff size was adjusted denies symptoms nothing notable on telemetry aside from some intermittent bradycardia into the high 50s. Review of Systems Review of Systems: All systems reviewed & are unremarkable except as noted in HPI & below Physical Exam Physical Exam: CONSTITUTIONAL: WNWD, vitals as above, generally well-appearing EYES: normal conjunctivae, no scleral icterus ENT: MMM RESPIRATORY: clear to auscultation bilaterally, no crackles, rales or wheezes, normal respiratory effort CARDIOVASCULAR: regular rate and rhythm, S1 and 2 heard without murmurs, gallops or rubs, no JVD, no peripheral edema, no carotid bruits GASTROINTESTINAL: normal bowel sounds, soft, nontender, nondistended MUSCULOSKELETAL: strength 5/5 throughout, head is normocephalic and atraumatic, neck supple, normal palpation of chest wall without tenderness SKIN: warm and dry NEUROLOGIC: CN 2-12 grossly intact, no sensory deficit, normal cognition, no gross focal deficits. PSYCHIATRIC: alert cooperative and oriented to person, place and time. Results & Data Vital Signs (Past 12 Hours) Vital Signs Temp Pulse Pulse Resp BP BP Pulse Ox 04/14/19 11:34 36.5 C 60 20 147/61 H 95 04/14/19 10:18 135/58 L 04/14/19 08:48 56 L 04/14/19 08:34 36.6 C 60 20 193/74 H 167/72 H 95 04/14/19 04:36 36.4 C L 57 L 18 137/59 L 98 Laboratory Results Short CBC 04/14/19 Range/Units 05:21 WBC 5.81 (4.8-10.8) K/uL Hgb 9.9 L (14.0-18.0) g/dL Hct 30.4 L (42-52) % Plt Count 152 (130-400) K/uL BMP 04/14/19 05:21 Sodium 138 Potassium 4.3 Chloride 107 Carbon Dioxide 23 BUN 66 H Creatinine 3.54 H Glucose 81 Calcium 8.4 L Medications Administered Current Inpatient Medications Acetaminophen (Tylenol) 650 mg PO Q4H PRN PRN Reason: Pain or Fever Stop: 05/12/19 20:38 Aspirin (Ecotrin Ectab) 81 mg PO DAILY ELISE Stop: 05/13/19 08:59 Last Admin: 04/14/19 07:52 Dose: 81 mg Documented by: Felodipine (Plendil) 10 mg PO QPM ELISE Stop: 05/12/19 20:59 Last Admin: 04/13/19 21:41 Dose: 10 mg Documented by: Folic Acid (Folvite) 1 mg PO QPM ELISE Stop: 05/12/19 20:59 Last Admin: 04/13/19 21:40 Dose: 1 mg Documented by: Furosemide (Lasix) 40 mg PO QAM ELISE Stop: 05/13/19 08:59 Last Admin: 04/14/19 07:51 Dose: 40 mg Documented by: Heparin Sodium (Porcine) (Heparin Sodium (Porcine)) 5,000 units SQ Q8 ELISE Stop: 05/12/19 21:59 Last Admin: 04/14/19 05:39 Dose: 5,000 units Documented by: Hydralazine HCl (Apresoline) 50 mg PO TID [facility] Stop: 05/14/19 13:59 Isosorbide Mononitrate (Imdur Extended Rel) 30 mg PO QAM ELISE Stop: 05/13/19 08:59 Last Admin: 04/14/19 07:52 Dose: 30 mg Documented by: Lisinopril (Zestril) 40 mg PO QPM ELISE Stop: 05/12/19 20:59 Last Admin: 04/13/19 21:40 Dose: 40 mg Documented by: Metoprolol Succinate (Toprol Xl) 25 mg PO BID ELISE Stop: 05/12/19 20:59 Last Admin: 04/14/19 08:21 Dose: 25 mg Documented by: Miscellaneous (Order Awaiting Action) 1 ea N/A QS ELISE Stop: 05/13/19 00:00 Last Admin: 04/14/19 07:51 Dose: Not Given Documented by: Pantoprazole Sodium (Protonix) 40 mg PO DAILY ELISE Stop: 05/13/19 08:59 Last Admin: 04/14/19 07:52 Dose: 40 mg Documented by: Vitamin D (Vitamin D3) 2,000 units PO QPM ELISE Stop: 05/12/19 20:59 Last Admin: 04/13/19 21:41 Dose: 2,000 units Documented by:
[2019-04-14] MEDS: CHOLECALCIFEROL 1,000 UNITS TAB PO SCH (20:20)
[2019-04-14] MEDS: FOLIC ACID 1 MG TAB PO SCH (20:22)
[2019-04-14] MEDS: LISINOPRIL 40 MG TAB PO SCH (20:22)
[2019-04-14] MEDS: FELODIPINE 5 MG TABCR PO SCH (20:23)
[2019-04-15] MEDS: HEPARIN SOD 5,000 UNIT/0.5 ML VIAL SQ SCH ×2 (05:45→12:44)
[2019-04-15] MEDS: PANTOprazole 40 MG TAB PO SCH (07:44)
[2019-04-15] MEDS: ISOSORBIDE MONO EXTENDED REL 30 MG TABCR PO SCH (07:44)
[2019-04-15] MEDS: HydrALAZINE TAB 50 MG TAB PO SCH ×2 (07:44→13:50)
[2019-04-15] MEDS: ASPIRIN 81 MG ECTAB PO SCH (07:44)
[2019-04-15] MEDS: FUROSEMIDE 40 MG TAB PO SCH (07:44)
[2019-04-15] MEDS: METOPROLOL SUCC 25MG EXT REL TAB PO SCH (07:45)
--- NOTE | 2019-04-15 11:18 | Cardiology Progress Note ---
Date of Service April 15, 2019 Assessment & Plan (1) PVC (premature ventricular contraction): (2) Obesity: (3) Chronic anemia: (4) History of AAA (abdominal aortic aneurysm) repair: (5) FLORIDALMA (obstructive sleep apnea): (6) PAD (peripheral artery disease): (7) CKD (chronic kidney disease), stage IV: (8) Dyslipidemia: The patient's blood pressure has improved and his ventricular ectopy has resolved after the restart of his home medications. He has a follow-up appointment with me next week which he will keep. I believe the patient can be discharged from a cardiac standpoint. Subjective The patient feels well and is interested in going home. Review of Systems Review of Systems: All systems reviewed & are unremarkable except as noted in HPI & below Nothing additional to add. Physical Exam Physical Exam: General: no acute distress and stated age Head: normocephalic, no masses, lesions, tenderness or abnormalities Eyes: conjunctiva are pink and non-injected, sclera clear Neck: supple, no adenopathy, no bruits, normal jugular venous pulse, no hepatojugular reflux Chest: normal shape and normal respiratory effort Lungs: clear to auscultation and percussion Cardiac Exam: - regular rate & rhythm, no murmurs gallops or rubs - normal S1, normal S2 Pulses: 2(+) throughout Abdomen: abdomen soft, non-tender, no abnormal masses and no hepatosplenomegaly Musculoskeletal: no gait disturbance, no joint inflammation, no deforming arthritis Extremities: no edema and no cyanosis Neuro: grossly normal exam Results & Data Vital Signs (Past 12 Hours) Vital Signs Temp Pulse Pulse Pulse Resp BP Pulse Ox 04/15/19 07:24 57 L 04/15/19 07:01 36.5 C 58 L 19 146/66 H 95 04/15/19 03:35 36.6 C 59 L 19 148/69 H 95 04/15/19 00:00 57 L Medications Administered Current Inpatient Medications Acetaminophen (Tylenol) 650 mg PO Q4H PRN PRN Reason: Pain or Fever Stop: 05/12/19 20:38 Aspirin (Ecotrin Ectab) 81 mg PO DAILY ELISE Stop: 05/13/19 08:59 Last Admin: 04/15/19 07:44 Dose: 81 mg Documented by: Felodipine (Plendil) 10 mg PO QPM ELISE Stop: 05/12/19 20:59 Last Admin: 04/14/19 20:23 Dose: 10 mg Documented by: Folic Acid (Folvite) 1 mg PO QPM ELISE Stop: 05/12/19 20:59 Last Admin: 04/14/19 20:22 Dose: 1 mg Documented by: Furosemide (Lasix) 40 mg PO QAM ELISE Stop: 05/13/19 08:59 Last Admin: 04/15/19 07:44 Dose: 40 mg Documented by: Heparin Sodium (Porcine) (Heparin Sodium (Porcine)) 5,000 units SQ Q8 ELISE Stop: 05/12/19 21:59 Last Admin: 04/15/19 05:45 Dose: Not Given Documented by: Hydralazine HCl (Apresoline) 50 mg PO TID ELISE Stop: 05/14/19 13:59 Last Admin: 04/15/19 07:44 Dose: 50 mg Documented by: Isosorbide Mononitrate (Imdur Extended Rel) 30 mg PO QAM ELISE Stop: 05/13/19 08:59 Last Admin: 04/15/19 07:44 Dose: 30 mg Documented by: Lisinopril (Zestril) 40 mg PO QPM ELISE Stop: 05/12/19 20:59 Last Admin: 04/14/19 20:22 Dose: 40 mg Documented by: Metoprolol Succinate (Toprol Xl) 25 mg PO BID ELISE Stop: 05/12/19 20:59 Last Admin: 04/15/19 07:45 Dose: 25 mg Documented by: Miscellaneous (Order Awaiting Action) 1 ea N/A QS ELISE Stop: 05/13/19 00:00 Last Admin: 04/15/19 07:33 Dose: Not Given Documented by: Pantoprazole Sodium (Protonix) 40 mg PO DAILY ELISE Stop: 05/13/19 08:59 Last Admin: 04/15/19 07:44 Dose: 40 mg Documented by: Vitamin D (Vitamin D3) 2,000 units PO QPM ELISE Stop: 05/12/19 20:59 Last Admin: 04/14/19 20:20 Dose: 2,000 units Documented by:
--- NOTE | 2019-04-15 13:04 | Discharge Summary ---
Date of Service April 15, 2019 Admission HPI Per Admitting Provider Pt is 83 y/o M with PMH HTN, dyslipidemia, PAD, h/o left popliteal aneurysm repair in 2006, CKD IV, anemia chronic disease, sleep apnea, stroke, gout, h/o aortic aneurysm repair 1984 presented to ER with complaint of palpitations. Patient reports history of intermittent palpitations which he reports was diagnosed as PVCs in the past. Describes a thumping sensation of heart in his chest Patient states in the past he would have palpitations that lasted for up to 15 minutes and occurred every couple of weeks, and symptoms occurred at rest. Patient states for the last 2 weeks has had increased frequency palpitations which occur sometimes multiple times throughout the day and can last for up to 1 hour. Patient states that the symptoms always occur at rest. Denies any associated chest pain, shortness of breath, dizziness. Patient reports chronic shortness of breath with exertion walking approximately 1/8 of a mile, denies any increased shortness of breath. Also reports chronic bilateral lower extremi ty edema, denies any worsening. Patient denies any recent medication changes. Reports drinks 40 ounces of Mountain Dew a week, denies any increased caffeine use, OTC decongestant use or alcohol use. Denies fever/chills, diaphoresis, N/V/D/C, LYNN, dizziness, syncope, vision changes, neck pain, CP, SOB, orthopnea, cough, sore throat, choking, otalgia, rhinorrhea, abdominal pain, paresthesias, weakness, rashes, urinary symptoms. History echo 2017: EF: 55-59%, mild AV sclerosis without stenosis. Mild aortic regurgitation, mild tricuspid regurgitation, mild pulmonary hypertension. Aortic root 3.9 cm. Proximal descending thoracic aorta moderately enlarged at 4.4 cm Admission Exam Per Admitting Provider General: no acute distress, obese Head: normocephalic, atraumatic Eyes: PERRL, EOM's intact, conjunctiva non-injected, anicteric ENT: normal inspection external ears, nose, mucous membranes moist Neck: supple, trachea midline Lungs: clear, no respiratory distress, no wheezing/rhonchi/rales CV: RRR, no murmur, 1+ pretibial edema Abd: normal BS, soft, non-tender Ext: no cyanosis, no calf tenderness Neuro: A&O x 3, no focal deficits noted, normal affect Skin: warm, dry Principal Diagnosis palpitations 2/2 preventricular contractions Discharge Data Allergies Allergy/AdvReac Type Severity Reaction Status Date / Time Iodinated Contrast Media Allergy Severe KIDNEY Unverified 04/12/19 17:19 PROBLEMS amoxicillin Allergy Unknown . Verified 04/12/19 17:19 atorvastatin Allergy Unknown ` Verified 04/12/19 17:19 gemfibrozil Allergy Unknown . Verified 04/12/19 17:19 Penicillins Allergy Unknown Verified 04/12/19 17:19 rosuvastatin Allergy Unknown . Verified 04/12/19 17:19 morphine AdvReac Mild PT DOES Verified 04/12/19 17:19 NOT LIKE THE WAY IT MAKES HIM FEEL Consultations 04/12/19 17:46 ED Decision to Admit Stat 04/12/19 20:39 Consult Cardiology Routine Consult Case Management - Discharge Planning Routine Hospital Course (1) Palpitations: (2) CKD (chronic kidney disease), stage IV: (3) Hypertension: (4) Chronic anemia: 83-year-old man with history of CKD stage IV and peripheral vascular disease presented with palpitations for the past two weeks occurring multiple times a day. There were no associated symptoms of chest pain, shortness of breath, dizziness or syncope related to this. He was admitted to the Hospitalist service and kept on his Toprol-XL 25 mg p.o. twice daily. Without changing medication dose, PVCs and palpitations improved overnight on telemetry. It was questioned whether or not he was actually taking the metoprolol at home. However, another change with admission was that he was not taking his blood boost supplement, which may have been contributing. Caffeine intake was reviewed and acceptable. Cardiac enzymes were trended and negative. A TSH was normal. During admission an echocardiogram was performed revealing an EF of 60 to 65%. Aortic valve sclerosis was noted without significant aortic valve stenosis. He was kept on telemetry for one more day to adjust his blood pressure medicines as his blood pressure was slightly uncontrolled. His hydralazine was increased to 50 mg p.o. three times daily. The following day he appeared improved and was clinically asymptomatic. A [id number] examination was performed at time of discharge revealing hemodynamically stable and afebrile patient who was mentating and ambulating at baseline. He was in no acute distress. He was tolerating p.o. Heart exam was normal including a regular rate and rhythm on auscultation with normal S1 and S2 heard. There was no evidence of murmurs, gallops, rubs. Lungs were clear to auscultation and no peripheral edema was present. Abdomen was soft and nontender. He was mentating clearly. He will be discharged home in stable condition with close primary care follow-up recommended. Of note, anemia was noted on lab work and iron studies revealed a transferrin saturation of 28% ruling out iron deficiency anemia. He was also noted to have macrocytosis of B12 and folate were checked and were normal. This should be followed up as an outpatient, and may be related to his chronic kidney disease. Total Time Total Time Spent Total Time Spent (In Minutes): 60 Total Time Includes: Examination of the Patient, Discharge Planning, Medication Reconciliation, Communication With Other Providers and Other (arrange follow-up ) Discharge Plan Discharge Items Patient Disposition: Home - Self-Care Reason For Visit: PALPITATIONS Discharge Diagnosis: palpitations 2/2 preventricular contractions Condition on Discharge: Good Activity: Resume your previous activity Non-emergency contact: Primary Care Provider Call non-emergency contact if: you have any medication questions, your symptoms worsen, your pain is not controlled, your pain is worsening, your pain is unusual for you, your pain is concerning for you and you have a fever Follow-up/Referrals: Remington Messina MD [Primary Care Provider] - Diet: Heart Healthy Addtl Attending Provider Instructions: Please take all medications as instructed on discharge list below. Please stop your "blood boost" supplement as we discussed. Please follow-up with your primary care physician and [facility] Cardiology as instructed. You have the following appointments scheduled: 04/19/2019 11:00 AM [facility]/23/2019 8:00 AM Stoney De La Cruz DO Cardiology, [facility] 04/26/2019 11:00 AM Mile Blunt MD Nephrology, [facility] It was a pleasure taking care of you! Please call if you have any questions or problems. You can reach a [facility] hospitalist on duty at [facility] 24 hours a day by calling [phone]. Take care of yourself. Piper William DO [facility] Hospitalist Pending Studies at Discharge: No Stand-Alone Forms: My [facility] Medications and DC Order Prescriptions: New hydralazine 50 mg Tablet 50 mg PO TID Qty: 90 RF: 1 Continued furosemide 40 mg tablet 40 mg PO QAM RF: 0 isosorbide mononitrate 30 mg tablet extended release 24 hr 30 mg PO QAM RF: 0 aspirin [Aspir-81] 81 mg Tablet,Delayed Release (Dr/Ec) 81 mg PO DAILY RF: 0 felodipine 10 mg tablet extended release 24 hr 10 mg PO QPM RF: 0 folic acid 1 mg tablet 1 mg PO QPM RF: 0 metoprolol succinate 25 mg tablet extended release 24 hr 25 mg PO BID RF: 0 lisinopril 40 mg tablet 40 mg PO QPM RF: 0 fenofibrate 160 mg tablet 160 mg PO QAM RF: 0 cholecalciferol (vitamin D3) [Vitamin D3] 2,000 unit Capsule 2,000 unit PO QPM RF: 0 omeprazole 20 mg Capsule,Delayed Release(Dr/Ec) 20 mg PO DAILY RF: 0 Discontinued hydralazine 50 mg tablet 25 mg PO DAILY@ RF: 0 hydralazine 50 mg tablet 50 mg PO HS RF: 0 Discharge Orders: Discharge Order (Routine); Ordered 04/15/19 Ordered By: Piper William Admission Data Admit Date/Time: 04/14/19 12:31 Attending Provider: Piper William Admit Provider: Karthik Baez Primary Care Provider: Remington Messina Other Providers: Karthik Baez ; Stoney De La Cruz
== END 2019-04-15 14:18 | disposition home or self-care (01) | DRG 309 ==
LOC: ED 16:14 → 2N 16:14 → SUATTDRO 18:46 → 2N 20:11

== ENCOUNTER 2020-08-13 11:41 | Inpatient (IN) ==
--- NOTE | 2020-08-13 12:16 | XRay Report ---
XR chest 1V portable CLINICAL HISTORY: Shortness of breath COMPARISON STUDY: 04/12/2019 FINDINGS: The heart is borderline enlarged. There is aortic tortuosity/ectasia. There are left mid to lower lung zone airspace opacities suspicious for a pneumonia.[ IMPRESSION: 1. Aortic tortuosity/ectasia 2. New left mid and lower lung zone airspace opacity suspicious for pneumonia ACT 112: Negative or not required by law. Electronically signed by: Hosea Agrawal M.D. 08/13/2020 12:14 PM
[2020-08-13 12:56] LABS: Basophils # (auto) 0.01 K/uL (0-0.2); Basophils % (auto) 0.3 %; Eosinophils # (auto) 0.01 K/uL (0-0.5); Eosinophils % (auto) 0.3 %; Hematocrit (blood only) 32.2 % (42-52); Hemoglobin 10.6 g/dL (14.0-18.0); Immature Granulocytes # (auto) 0.05 K/uL (0.00-0.02); Immature Granulocytes % (auto) 1.4 %; Lymphocytes # (auto) 0.79 K/uL (1.2-3.4); Lymphocytes % (auto) 22.2 %; Mean Corpuscular Hemoglobin 37.7 pg (25-34); Mean Corpuscular Hgb Conc 32.9 g/dL (32-36); Mean Corpuscular Volume 114.6 fL (80-100); Mean Platelet Volume 10.6 fL (7.4-10.4); Monocytes # (auto) 0.16 K/uL (0.11-0.59); Monocytes % (auto) 4.5 %; Neutrophils # (auto) 2.54 K/uL (1.4-6.5); Neutrophils % (auto) 71.3 %; Platelet Count 153 K/uL (130-400); RDW Coefficient of Variation 15.5 % (11.5-14.5); RDW Standard Deviation 65.6 fL (36.4-46.3); Red Blood Count 2.81 M/uL (4.7-6.1); White Blood Count 3.56 K/uL (4.8-10.8)
[2020-08-13] MEDS ORDERED: DEXAMETHASONE SOD INJ 4 MG/ML VIAL IV STA (12:58)
--- NOTE | 2020-08-13 13:03 | Emergency Department Note ---
Impression & Plan Hypoxia, Pneumonia involving left lung ED Provider Note INFORMANT: Patient ED PROVIDER(S): Constantine Rowan MD CHIEF COMPLAINT: Shortness of breath PLAN: Disposition: Admitted Condition: Good Outpatient prescription management: none Referral: None MEDICAL DECISION MAKING: Patient presented emergency department complaining of shortness of breath. He was hypoxic but doing surprisingly well. Supplemental nasal cannula oxygen resolve the hypoxia. The patient had findings consistent with left-sided pneumonia on chest x-ray. He had mild anemia and leukopenia noted on his CBC. The patient's chemistry panel revealed CKD. He was given IV Decadron. COVID-19 testing was performed. The patient has pneumonia noted. His procalcitonin was unremarkable but his inflammatory markers are elevated. The patient's Covid test is positive as suspected. [facility] Patient was evaluated in the ER and admitted for further treatment. Triage Nursing notes reviewed and agree them. Vital Signs: reviewed and remarkable for no significant abnormalities Differential diagnosis: COVID-19, reactive airway disease, pneumonia, pneumothorax, COPD, CHF, infections, cardiac ischemia, pulmonary embolism, musculoskeletal, gastrointestinal, as well as other pathologies. Diagnostics interpreted by me: ECG: Twelve-lead ECG reveals normal sinus rhythm at [address] elevation or depression. No PVCs or PACs. Cardiac Monitoring: Cardiac monitoring ordered by me: The patient was placed on continuous cardiac monitoring and observed. It revealed a normal sinus rhythm at 68 beats per minute without ectopy or evidence of dysrhythmia. Imaging studies: Left-sided pneumonia on chest x-ray. I refer you to the EMR for further details. HPI: The patient is a 84 year old female who presents to the Emergency Room with complaints of shortness of breath. This started about 1.5 weeks ago and is persisting. The patient also notes the following associated symptoms, mild headache, myalgias, fevers. The patient has using Tylenol and [id number] cold medicine for relieving factors. Current pain is rated as 0/10. Patient was referred to the [facility] facility and they were concerned about pneumonia. He was hypoxic. He was sent here for evaluation. Pt denies LOC, headache, fevers, chills, diaphoresis, visual changes, neck pain, chest pain, nausea, vomiting, abdominal pain, back pain, melena, hematochezia, urinary symptoms, numbness, weakness, lymphadenopathy, rash, or other complaints. ROS: See above HPI for pertinent positives & negatives. A total of 10 systems reviewed and were otherwise negative. PAST MEDICAL HISTORY:See Below , CAD, obstructive sleep apnea, peripheral ar tatiana disease, hypertension PAST SURGICAL HISTORY:See Below, FAMILY HISTORY:See Below SOCIAL HISTORY:See Below, non-smoker HOME MEDICATIONS:See Below ALLERGIES:See Below VITALS:See Below PHYSICAL EXAMINATION: GENERAL: Awake, alert, well-appearing, in no distress HENT: Normocephalic, atraumatic. Oropharynx unremarkable. EYES: Normal conjunctiva. Sclera non-icteric. NECK: Inspection normal. Non-tender. Supple. No nuchal rigidity. FROM. No masses. RESPIRATORY: Clear to auscultation. No wheezes. No rales. Normal respiratory effort. CARDIAC: Normal rate. Normal rhythm. No murmurs. No rubs. Extremities warm and well perfused. Pulses equal. No JVD. GI: Soft, non-distended. No tenderness to palpation. No rebound or guarding. No masses. RECTAL: Deferred. MUSCULOSKELETAL: Atraumatic. Chest examination reveals no tenderness. The back is symmetrical on inspection without obvious abnormality. There is no CVA tenderness to palpation. No joint edema. LOWER EXTREMITIES: Calves are equal size bilaterally and non-tender. Trace edema. No discoloration. NEURO: Normal sensorium. No sensory or motor deficits noted. SKIN: No rash or jaundice noted. ED COURSE: Critical Care: None Constantine Rowan MD Past Med/Surg History Medical History (Updated 08/13/20 @ 14:59 by Flora Tejeda PA-C) CAD (coronary artery disease) Chronic anemia Chronic kidney disease CKD (chronic kidney disease), stage IV Fracture of right tibial plateau Hypertension Obesity FLORIDALMA (obstructive sleep apnea) Pneumonia Premature ventricular beat Surgical History (Updated 08/13/20 @ 14:52 by Flora Tejeda PA-C) History of AAA (abdominal aortic aneurysm) repair History of cataract extraction Status post aneurysm repair popliteal 2.8cm L with reverse saph vein graft, dr. gonzalez 10/04/06 Family History Mother Aneurysm Brother Melanoma Social History (Updated 08/13/20 @ 14:52 by Flora Tejeda PA-C) Smoking Status: Former smoker packs per day: 2.54; Years Smoked: 25; Hx Alcohol Use: No Hx Substance Use: No Preferred Language: Kiswahili Communication Ability: Effective [employer] Sales [employer] Required: No Beliefs That Will Affect Care: None marital status: Current Living Situation: Spouse current occupational status: retired Feels Safe at Home: Yes Assistive Devices: BiPap, Glasses and Oxygen - Continuous Allergies Allergies Allergy/AdvReac Type Severity Reaction Status Date / Time Iodinated Contrast Media Allergy Severe KIDNEY Unverified 08/13/20 13:57 PROBLEMS amoxicillin Allergy Unknown . Verified 08/13/20 13:57 atorvastatin Allergy Unknown ` Verified 08/13/20 13:57 gemfibrozil Allergy Unknown . Verified 08/13/20 13:57 Penicillins Allergy Unknown Verified 08/13/20 13:57 rosuvastatin Allergy Unknown . Verified 08/13/20 13:57 morphine AdvReac Mild PT DOES Verified 08/13/20 13:57 NOT LIKE THE WAY IT MAKES HIM FEEL Home Meds Home Medications Medication Instructions Recorded Confirmed cholecalciferol (vitamin D3) 2,000 unit PO QPM 04/12/19 08/13/20 [Vitamin D3] felodipine 10 mg PO QPM 04/12/19 08/13/20 folic acid 1 mg PO QPM 04/12/19 08/13/20 furosemide 40 mg PO QAM 04/12/19 08/13/20 isosorbide mononitrate 30 mg PO QAM 04/12/19 08/13/20 lisinopril 40 mg PO QPM 04/12/19 08/13/20 metoprolol succinate 25 mg PO BID 04/12/19 08/13/20 omeprazole 20 mg PO QAM 04/12/19 08/13/20 acetaminophen [Tylenol Extra 1,000 mg PO Q6H PRN 08/13/20 08/13/20 Strength] allopurinol 100 mg PO PM 08/13/20 08/13/20 aspirin 81 mg PO QAM 08/13/20 08/13/20 hydralazine 25 mg PO BIDM 08/13/20 08/13/20 hydralazine 50 mg PO HS 08/13/20 08/13/20 melatonin 5 mg PO HS 08/13/20 08/13/20 [id number] 1 tab PO QAM 08/13/20 08/13/20 [Centrum Silver] Results & Data (ED) Vital Signs Vital Signs - 24 hr 08/13/20 11:42 Temperature 36.8 C Temperature Source Oral Pulse Rate 78 Pulse Rhythm Regular Pulse Strength Normal Respiratory Rate 26 H Respiratory Effort / Characteristics Labored Blood Pressure Position Sitting Pulse Oximetry 83 L Oxygen Delivery Method Room Air Sepsis Recent Fever Within 48 Hours No Sepsis New/Unexplained Change in Mental Status N/A Sepsis Action Taken by Nursing No Action Required Laboratory Data Result diagrams: 08/14/20 06:44 08/14/20 06:44 Lab Results 08/13/20 08/13/20 08/13/20 Range/Units 12:43 12:43 12:43 WBC 3.56 L (4.8-10.8) K/uL RBC 2.81 L (4.7-6.1) M/uL Hgb 10.6 L (14.0-18.0) g/dL Hct 32.2 L (42-52) % MCV 114.6 H (80-100) fL MCH 37.7 H (25-34) pg MCHC 32.9 (32-36) g/dL RDW Std Deviation 65.6 H (36.4-46.3) fL RDW Coeff of Maryan 15.5 H (11.5-14.5) % Plt Count 153 (130-400) K/uL MPV 10.6 H (7.4-10.4) fL Immature Gran % (Auto) 1.4 % Neut % (Auto) 71.3 % Lymph % (Auto) 22.2 % [place] % (Auto) 4.5 % Eos % (Auto) 0.3 % Baso % (Auto) 0.3 % Neut # (Auto) 2.54 (1.4-6.5) K/uL Lymph # (Auto) 0.79 L (1.2-3.4) K/uL [place] # (Auto) 0.16 (0.11-0.59) K/uL Eos # (Auto) 0.01 (0-0.5) K/uL Baso # (Auto) 0.01 (0-0.2) K/uL Immature Gran # (Auto) 0.05 H (0.00-0.02) K/uL Macrocytosis Present PT 10.4 (9.0-12.0) Seconds INR 1.0 (0.9-1.1) APTT 32.4 H (21.0-31.0) Seconds PTT Ratio 1.2 D-Dimer 2540 H* (0-500) ug/L FEU Sodium (136-145) mmol/L Potassium (3.5-5.1) mmol/L Chloride (98-107) mmol/L Carbon Dioxide (21-32) mmol/L Anion Gap (3-11) BUN (7-18) mg/dl Creatinine (0.6-1.4) mg/dl Est Cr Clr Drug Dosing ml/min Est GFR ( Amer) Est GFR (Non-Af Amer) BUN/Creatinine Ratio (10-20) Glucose (70-99) mg/dl Calcium (8.5-10.1) mg/dl Magnesium (1.8-2.4) mg/dl Total Bilirubin (0.2-1) mg/dl AST (15-37) U/L ALT (12-78) U/L Alkaline Phosphatase (45-117) U/L Troponin I (0-0.045) ng/ml C-Reactive Protein (0-0.29) mg/dl NT-Pro-B Natriuret Pep (0-1800) pg/ml Total Protein (6.4-8.2) gm/dl Albumin (3.4-5.0) gm/dl Globulin (2.5-4.0) gm/dl Albumin/Globulin Ratio (0.9-2) Procalcitonin (0-0.5) ng/ml Urine Color Urine Appearance (Clear) Urine pH (4.5-7.5) Ur Specific [place] (1.000-1.030) Urine Protein (Negative) Urine Glucose (UA) (Negative) Urine Ketones (Negative) Urine Blood (Negative) Urine Nitrite (Negative) Urine Bilirubin (Negative) Urine Urobilinogen (Negative) Ur Leukocyte Esterase (Negative) Urine WBC (Auto) (0-5) /hpf Urine RBC (Auto) (0-4) /hpf U Hyaline Cast (Auto) (0-5) /lpf U Epithel Cells (Auto) (0-5) /lpf Urine Bacteria (Auto) (Negative) COVID-19 Eval Order SARS-CoV-2 (PCR) (Negative) Influenza Type A (PCR) (Neg) Influenza Type B (PCR) (Neg) RSV (RT-PCR) (Neg) Blood Type A Positive Antibody Screen NEGATIVE 08/13/20 08/13/20 08/13/20 Range/Units 12:43 12:43 12:45 WBC (4.8-10.8) K/uL RBC (4.7-6.1) M/uL Hgb (14.0-18.0) g/dL Hct (42-52) % MCV (80-100) fL MCH (25-34) pg MCHC (32-36) g/dL RDW Std Deviation (36.4-46.3) fL RDW Coeff of Maryan (11.5-14.5) % Plt Count (130-400) K/uL MPV (7.4-10.4) fL Immature Gran % (Auto) % Neut % (Auto) % Lymph % (Auto) % [place] % (Auto) % Eos % (Auto) % Baso % (Auto) % Neut # (Auto) (1.4-6.5) K/uL Lymph # (Auto) (1.2-3.4) K/uL [place] # (Auto) (0.11-0.59) K/uL Eos # (Auto) (0-0.5) K/uL Baso # (Auto) (0-0.2) K/uL Immature Gran # (Auto) (0.00-0.02) K/uL Macrocytosis PT (9.0-12.0) Seconds INR (0.9-1.1) APTT (21.0-31.0) Seconds PTT Ratio D-Dimer (0-500) ug/L FEU Sodium 138 (136-145) mmol/L Potassium 4.5 (3.5-5.1) mmol/L Chloride 111 H (98-107) mmol/L Carbon Dioxide 17 L (21-32) mmol/L Anion Gap 10.0 (3-11) BUN 72 H (7-18) mg/dl Creatinine 3.59 H (0.6-1.4) mg/dl Est Cr Clr Drug Dosing 19.1 ml/min Est GFR ( Amer) 16.8 Est GFR (Non-Af Amer) 14.5 BUN/Creatinine Ratio 19.9 (10-20) Glucose 113 H (70-99) mg/dl Calcium 9.0 (8.5-10.1) mg/dl Magnesium 2.1 (1.8-2.4) mg/dl Total Bilirubin 0.4 (0.2-1) mg/dl AST 42 H (15-37) U/L ALT 39 (12-78) U/L Alkaline Phosphatase 132 H (45-117) U/L Troponin I < 0.015 (0-0.045) ng/ml C-Reactive Protein 5.11 H (0-0.29) mg/dl NT-Pro-B Natriuret Pep 188 (0-1800) pg/ml Total Protein 7.8 (6.4-8.2) gm/dl Albumin 3.5 (3.4-5.0) gm/dl Globulin 4.3 H (2.5-4.0) gm/dl Albumin/Globulin Ratio 0.8 L (0.9-2) Procalcitonin 0.26 (0-0.5) ng/ml Urine Color Yellow Urine Appearance Clear (Clear) Urine pH 5.0 (4.5-7.5) Ur Specific [place] 1.018 (1.000-1.030) Urine Protein 2+ H (Negative) Urine Glucose (UA) Negative (Negative) Urine Ketones Negative (Negative) Urine Blood Negative (Negative) Urine Nitrite Negative (Negative) Urine Bilirubin Negative (Negative) Urine Urobilinogen Negative (Negative) Ur Leukocyte Esterase Negative (Negative) Urine WBC (Auto) 0 (0-5) /hpf Urine RBC (Auto) 0-4 (0-4) /hpf U Hyaline Cast (Auto) 1-5 (0-5) /lpf U Epithel Cells (Auto) 0-5 (0-5) /lpf Urine Bacteria (Auto) Negative (Negative) COVID-19 Eval Order SARS-CoV-2 (PCR) (Negative) Influenza Type A (PCR) (Neg) Influenza Type B (PCR) (Neg) RSV (RT-PCR) (Neg) Blood Type Antibody Screen 08/13/20 08/13/20 Range/Units 12:56 12:56 WBC (4.8-10.8) K/uL RBC (4.7-6.1) M/uL Hgb (14.0-18.0) g/dL Hct (42-52) % MCV (80-100) fL MCH (25-34) pg MCHC (32-36) g/dL RDW Std Deviation (36.4-46.3) fL RDW Coeff of Maryan (11.5-14.5) % Plt Count (130-400) K/uL MPV (7.4-10.4) fL Immature Gran % (Auto) % Neut % (Auto) % Lymph % (Auto) % [place] % (Auto) % Eos % (Auto) % Baso % (Auto) % Neut # (Auto) (1.4-6.5) K/uL Lymph # (Auto) (1.2-3.4) K/uL [place] # (Auto) (0.11-0.59) K/uL Eos # (Auto) (0-0.5) K/uL Baso # (Auto) (0-0.2) K/uL Immature Gran # (Auto) (0.00-0.02) K/uL Macrocytosis PT (9.0-12.0) Seconds INR (0.9-1.1) APTT (21.0-31.0) Seconds PTT Ratio D-Dimer (0-500) ug/L FEU Sodium (136-145) mmol/L Potassium (3.5-5.1) mmol/L Chloride (98-107) mmol/L Carbon Dioxide (21-32) mmol/L Anion Gap (3-11) BUN (7-18) mg/dl Creatinine (0.6-1.4) mg/dl Est Cr Clr Drug Dosing ml/min Est GFR ( Amer) Est GFR (Non-Af Amer) BUN/Creatinine Ratio (10-20) Glucose (70-99) mg/dl Calcium (8.5-10.1) mg/dl Magnesium (1.8-2.4) mg/dl Total Bilirubin (0.2-1) mg/dl AST (15-37) U/L ALT (12-78) U/L Alkaline Phosphatase (45-117) U/L Troponin I (0-0.045) ng/ml C-Reactive Protein (0-0.29) mg/dl NT-Pro-B Natriuret Pep (0-1800) pg/ml Total Protein (6.4-8.2) gm/dl Albumin (3.4-5.0) gm/dl Globulin (2.5-4.0) gm/dl Albumin/Globulin Ratio (0.9-2) Procalcitonin (0-0.5) ng/ml Urine Color Urine Appearance (Clear) Urine pH (4.5-7.5) Ur Specific [place] (1.000-1.030) Urine Protein (Negative) Urine Glucose (UA) (Negative) Urine Ketones (Negative) Urine Blood (Negative) Urine Nitrite (Negative) Urine Bilirubin (Negative) Urine Urobilinogen (Negative) Ur Leukocyte Esterase (Negative) Urine WBC (Auto) (0-5) /hpf Urine RBC (Auto) (0-4) /hpf U Hyaline Cast (Auto) (0-5) /lpf U Epithel Cells (Auto) (0-5) /lpf Urine Bacteria (Auto) (Negative) COVID-19 Eval Order CovFluRsv at [facility] SARS-CoV-2 (PCR) POSITIVE A* (Negative) Influenza Type A (PCR) Negative (Neg) Influenza Type B (PCR) Negative (Neg) RSV (RT-PCR) Negative (Neg) Blood Type Antibody Screen Administered Medications Albuterol (Albuterol Hfa 8 Gm Inhaler) 2 puffs INH QIDR [facility] Stop: 09/12/20 18:59 Last Admin: 08/14/20 11:39 Dose: 2 puffs Documented by: [id number] Admin: 08/14/20 07:43 Dose: 2 puffs Documented by: [id number] Admin: 08/13/20 19:35 Dose: 2 puffs Documented by: [id number] Allopurinol (Allopurinol 100 Mg Tab) 100 mg PO PM [facility] Stop: 09/12/20 20:59 Last Admin: 08/13/20 19:30 Dose: 100 mg Documented by: [id number] Aspirin (Aspirin 81 Mg Ectab) 81 mg PO QAM [facility] Stop: 09/13/20 08:59 Last Admin: 08/14/20 09:37 Dose: 81 mg Documented by: [id number] Benzonatate (Benzonatate 100 Mg Capsule) 100 mg PO TID [facility] Stop: 09/12/20 20:59 Last Admin: 08/14/20 13:35 Dose: 100 mg Documented by: [id number] Admin: 08/14/20 09:41 Dose: 100 mg Documented by: [id number] Admin: 08/13/20 19:32 Dose: 100 mg Documented by: [id number] Enoxaparin Sodium (Enoxaparin Inj 30 Mg/0.3 Ml Syr) 30 mg SQ QAM [facility] Stop: 09/12/20 16:14 Last Admin: 08/14/20 09:38 Dose: 30 mg Documented by: [id number] Admin: 08/13/20 16:48 Dose: 30 mg Documented by: [id number] Famotidine (Famotidine 40 Mg Tablet) 40 mg PO QAM [facility] Stop: 09/12/20 15:59 Last Admin: 08/14/20 09:40 Dose: 40 mg Documented by: [id number] Admin: 08/13/20 16:27 Dose: 40 mg Documented by: [id number] Felodipine (Felodipine 5 Mg Tabcr) 10 mg PO QPM [facility] Stop: 09/12/20 20:59 Last Admin: 08/13/20 19:31 Dose: 10 mg Documented by: [id number] Folic Acid (Folic Acid 1 Mg Tab) 1 mg PO QPM [facility] Stop: 09/12/20 20:59 Last Admin: 08/13/20 19:31 Dose: 1 mg Documented by: [id number] Guaifenesin (Guaifenesin 600 Mg Tabcr) 600 mg PO Q12 [facility] Stop: 09/12/20 20:59 Last Admin: 08/14/20 09:39 Dose: 600 mg Documented by: [id number] Admin: 08/13/20 19:30 Dose: 600 mg Documented by: [id number] Hydralazine HCl (Hydralazine Hcl 25 Mg Tab) 25 mg PO BIDM [facility] Stop: 09/12/20 16:59 Last Admin: 08/14/20 08:38 Dose: 25 mg Documented by: [id number] Admin: 08/13/20 16:28 Dose: Not Given Documented by: [id number] Hydralazine HCl (Hydralazine Tab 50 Mg Tab) 50 mg PO HS [facility] Stop: 09/12/20 20:59 Last Admin: 08/13/20 19:29 Dose: 50 mg Documented by: [id number] Dexamethasone 6 mg/ Syringe 1.5 mls @ 1 mls/min IV DAILY [facility] Stop: 08/24/20 08:59 Last Admin: 08/14/20 09:37 Dose: 1 mls/min Documented by: [id number] Isosorbide Mononitrate (Isosorbide [place] Extended Rel 30 Mg Tabcr) 30 mg PO QAM [facility] Stop: 09/13/20 08:59 Last Admin: 08/14/20 09:38 Dose: 30 mg Documented by: [id number] Lisinopril (Lisinopril 40 Mg Tab) 40 mg PO QPM [facility] Stop: 09/12/20 20:59 Last Admin: 08/13/20 19:31 Dose: 40 mg Documented by: [id number] Melatonin (Melatonin 3 Mg Tab) 3 mg PO HS PRN PRN Reason: Sleep Stop: 09/12/20 19:42 Last Admin: 08/13/20 23:01 Dose: 3 mg Documented by: [id number] Metoprolol Succinate (Metoprolol Succ 25mg Ext Rel Tab) 25 mg PO BID [facility] Stop: 09/12/20 20:59 Last Admin: 08/14/20 09:42 Dose: 25 mg Documented by: [id number] Admin: 08/13/20 19:31 Dose: 25 mg Documented by: [id number] Multivitamins/Minerals (Cerovite Adv Formula Tab) 1 tab PO DAILY@1200 [facility] Stop: 09/13/20 11:59 Last Admin: 08/14/20 12:29 Dose: 1 tab Documented by: [id number] Pantoprazole Sodium (Pantoprazole 40 Mg Tab) 40 mg PO [facility]; Protocol Stop: 09/13/20 08:59 Last Admin: 08/14/20 09:40 Dose: 40 mg Documented by: [id number] Discontinued Medications Acetaminophen (Acetaminophen 325 Mg Tab) 650 mg PO PRE-TREAT ONE Stop: 08/13/20 23:18 Last Admin: 08/13/20 16:55 Dose: Not Given Documented by: [id number] Dexamethasone (Dexamethasone Sod Inj 4 Mg/Ml Vial) 6 mg IV NOW STA Stop: 08/13/20 12:59 Last Admin: 08/13/20 14:25 Dose: 6 mg Documented by: [id number] Diphenhydramine HCl (Diphenhydramine Capsule 25 Mg Cap) 25 mg PO PRE-TREAT ONE Stop: 08/13/20 23:18 Last Admin: 08/13/20 16:55 Dose: Not Given Documented by: [id number] Heparin Sodium/Dextrose (Heparin Iv Standard *No* Bolus) 1 ea IV Q15M [facility]; Protocol Stop: 09/12/20 15:24 Last Admin: 08/13/20 16:57 Dose: Not Given Documented by: [id number] Admin: 08/13/20 16:56 Dose: Not Given Documented by: [id number] Admin: 08/13/20 15:50 Dose: Not Given Documented by: [id number] Heparin Sodium/Dextrose (Heparin 83130 Unit/500 Ml D5w) Confirm Administered Dose 25,000 units IV .STK-MED ONE Stop: 08/13/20 15:40 Last Admin: 08/13/20 15:48 Dose: 1,650 units Documented by: [id number] Cosigned by: [id number] Hydralazine HCl (Hydralazine Hcl 20 Mg/Ml Vial) 5 mg IV NOW ONE Stop: 08/13/20 14:48 Last Admin: 08/13/20 15:44 Dose: 5 mg Documented by: [id number] Heparin Sodium/Dextrose (Heparin Sodium/Dextrose) 25,000 units in 500 mls @ 0.02 mls/hr IV .Q24H [facility]; Protocol Stop: 09/12/20 15:24 Last Admin: 08/13/20 16:55 Dose: Not Given Documented by: [id number] Discharge Plan Visit Data Chief Complaint: Shortness of Breath/Dyspnea Stated Complaint: SOB ED Provider: Constantine Rowan Discharge Problem: Hypoxia, Pneumonia involving left lung Patient Disposition: Admitted As Inpatient Discharge Instructions Interventions: ED Discharge Assessment Last Done: 08/13/20 14:27
[2020-08-13 13:09] LABS: Partial Thromboplastin Ratio 1.2; Partial Thromboplastin Time 32.4 Seconds (21.0-31.0); Prothrombin Time 10.4 Seconds (9.0-12.0)
[2020-08-13 13:11] LABS: D Dimer 2540 ug/L FEU (0-500)
[2020-08-13 13:13] LABS: Alanine Aminotransferase 39 U/L (12-78); Albumin Level 3.5 gm/dl (3.4-5.0); Aspartate Aminotransferase 42 U/L (15-37); BUN Creatinine Ratio 19.9 (10-20); Blood Urea Nitrogen 72 mg/dl (7-18); C Reactive Protein 5.11 mg/dl (0-0.29); Carbon Dioxide 17 mmol/L (21-32); Chloride 111 mmol/L (98-107); Creatinine Clr Calc Pharmacy 19.1 ml/min; Est GFR (African American) 16.8; Est GFR (Non-African American) 14.5; Glucose 113 mg/dl (70-99); Magnesium 2.1 mg/dl (1.8-2.4); Potassium 4.5 mmol/L (3.5-5.1); Sodium 138 mmol/L (136-145)
[2020-08-13 13:17] LABS: Macrocytosis Present
[2020-08-13 13:18] LABS: Albumin Globulin Ratio 0.8 (0.9-2); Alkaline Phosphatase 132 U/L (45-117); Bilirubin,Total 0.4 mg/dl (0.2-1); Globulin 4.3 gm/dl (2.5-4.0); NT Pro B Type Natriuretic Pept 188 pg/ml (0-1800); Total Protein 7.8 gm/dl (6.4-8.2); Troponin I < 0.015 ng/ml (0-0.045)
[2020-08-13 13:27] LABS: Appearance Urine Clear (Clear); Bacteria Urine Automated Negative (Negative); Bilirubin Urine Negative (Negative); Blood Urine Negative (Negative); Color Urine Yellow; Epithelial Cell Urine Auto 0-5 /lpf (0-5); Glucose Urine UA Negative (Negative); Ketones Urine Negative (Negative); Leukocyte Esterase Urine Negative (Negative); Nitrite Urine Negative (Negative); Protein Urine 2+ (Negative); RBC Urine Automated 0-4 /hpf (0-4); Specific Gravity Urine 1.018 (1.000-1.030); Urobilinogen Urine Negative (Negative); WBC Urine Automated 0 /hpf (0-5)
[2020-08-13 13:58] LABS: Influenza A virus by PCR Negative (Neg); Influenza B virus by PCR Negative (Neg); RSV by PCR Negative (Neg)
[2020-08-13 14:09] LABS: SARS CoV2 RNA(COVID-19) InHosp POSITIVE (Negative)
[2020-08-13] MEDS ORDERED: hydrALAZINE HCL 20 MG/ML VIAL IV ONE (14:47)
--- NOTE | 2020-08-13 14:54 | History & Physical Report ---
Date of Service August 13, 2020 Assessment & Plan (1) COVID-19: (2) Pneumonia involving left lung: (3) Hypoxia: This is a 84-year-old male has significant past medical history of CAD, PAD, history of AAA repair, history popliteal aneurysm repair, HTN, HLD, FLORIDALMA on 2 L at HS, CKD stage IV who presents to ED secondary to COVID-19 symptoms x10 days admit to PCU continue O2 supplementation, titrate as necessary IV dexamethasone He does not meet criteria for remdesivir 2/2 to CKD4 CCP x 1 ordered consult ID, Pulm Given hx of PE, elevated d-dimer 2500k, hypoxia will empirically start of IV Heparin - unable to obtain chest cta due to CKD4 Doxycycline 100mg bid; IV rocephin 1g daily for empiric tx bacterial pna repeat procalcitonin/dimer 08/15 Pulmonary toilet with albuterol, incentive spirometry, self proning continue PPI, start pepcid for GI prophylaxis (4) CAD (coronary artery disease): (5) Hypertension: (6) PAD (peripheral artery disease): Pt hypertensive in ED, Give IV hydralazine x 1 now continue ASA, metoprolol, lisinopril, felodipine, hydralazine, imdur hold lasix due to elevated bun/appears dry monitor volume status daily and resume lasix when able (7) CKD (chronic kidney disease), stage IV: Secondary to hypertension BUN/creatinine 72 and 3.59 Baseline creatinine 3-3.5 Monitor renal function daily, avoid nephrotoxic agents Low threshold to consult [facility] nephrology Hold Lasix, resume as able (8) FLORIDALMA (obstructive sleep apnea): on 2L of O2 at HS continue O2 supplementation (9) Chronic anemia: Secondary to CKD H&H stable at 10.6 and 32.2 Macrocytic, continue folic acid (10) DVT prophylaxis: Therapeutic heparin ordered Disposition: Admit to PCU Fall: PCP Dr. Messina upon discharge Pt was collaborated with Dr. Gustafson, please see addendum Admission and Anticipated Discharge Date Admission Date: August 13, 2020 History of Present Illness Chief Complaint: COVID 19 sx x 10 days. Primary Care Provider: Remington Messina MD This is a 84-year-old male has significant past medical history of CAD, PAD, history of AAA repair, history popliteal aneurysm repair, HTN, HLD, FLORIDALMA on 2 L at HS, CKD stage IV who presents to ED secondary to COVID-19 symptoms x10 days. He complains of fever, fatigue, body aches, loss of taste & smell, sinus congestion and worsening shortness of breath. His symptoms have progressed over the past 10 days. He was seen by convenient care and his oxygen saturation was 90% on room air. He was referred to ED for further evaluation. In ED chest x- ray findings are concerning for left middle and lower lobe pneumonia. His SARS-CoV-2 was positive. He did have mild leukopenia, significant elevation of D-dimer echo, elevated 0.2. CRP also elevated. He was treated with IV dexamethasone. Of significance he does have CKD stage IV to stage V. He follows with Dr. Power of nephrology. Peritoneal dialysis was discussed not on PD. He does have sleep apnea which he uses 2 L of O2 at bedtime. He denies any lightheadedness, dizziness, headache, syncope, chest pain, hemoptysis, nausea, vomiting, abdominal pain, change in bowel or urinary habits. He overall does have decreased appetite. Allergies Allergy/AdvReac Type Severity Reaction Status Date / Time Iodinated Contrast Media Allergy Severe KIDNEY Unverified 08/13/20 13:57 PROBLEMS amoxicillin Allergy Unknown . Verified 08/13/20 13:57 atorvastatin Allergy Unknown ` Verified 08/13/20 13:57 gemfibrozil Allergy Unknown . Verified 08/13/20 13:57 Penicillins Allergy Unknown Verified 08/13/20 13:57 rosuvastatin Allergy Unknown . Verified 08/13/20 13:57 morphine AdvReac Mild PT DOES Verified 08/13/20 13:57 NOT LIKE THE WAY IT MAKES HIM FEEL Home Medications Medication Instructions Recorded Confirmed Type cholecalciferol (vitamin D3) 2,000 unit PO QPM 04/12/19 08/13/20 History [Vitamin D3] felodipine 10 mg PO QPM 04/12/19 08/13/20 History folic acid 1 mg PO QPM 04/12/19 08/13/20 History furosemide 40 mg PO QAM 04/12/19 08/13/20 History isosorbide mononitrate 30 mg PO QAM 04/12/19 08/13/20 History lisinopril 40 mg PO QPM 04/12/19 08/13/20 History metoprolol succinate 25 mg PO BID 04/12/19 08/13/20 History omeprazole 20 mg PO QAM 04/12/19 08/13/20 History acetaminophen [Tylenol Extra 1,000 mg PO Q6H PRN 08/13/20 08/13/20 History Strength] allopurinol 100 mg PO PM 08/13/20 08/13/20 History aspirin 81 mg PO QAM 08/13/20 08/13/20 History hydralazine 25 mg PO BIDM 08/13/20 08/13/20 History hydralazine 50 mg PO HS 08/13/20 08/13/20 History ancqeizwpmvo-eparksnc-zlmznv 1 tab PO QAM 08/13/20 08/13/20 History [Centrum Silver] Past Med/Surg History Medical History (Updated 08/13/20 @ 14:59 by Folra Tejeda PA-C) CAD (coronary artery disease) Chronic anemia Chronic kidney disease CKD (chronic kidney disease), stage IV Fracture of right tibial plateau Hypertension Obesity FLORIDALMA (obstructive sleep apnea) Pneumonia Premature ventricular beat Surgical History (Updated 08/13/20 @ 14:52 by Flora Tejeda PA-C) History of AAA (abdominal aortic aneurysm) repair History of cataract extraction Status post aneurysm repair popliteal 2.8cm L with reverse saph vein graft, dr. gonzalez 10/04/06 Family History Mother Aneurysm Brother Melanoma Social History (Updated 08/13/20 @ 14:52 by Flora Tejeda PA-C) Smoking Status: Former smoker packs per day: 2.54; Years Smoked: 25; Hx Alcohol Use: No Hx Substance Use: No Preferred Language: Gabonese Communication Ability: Effective Communication Ability Comment: hard of hearing Web Feeder Required: No Beliefs That Will Affect Care: None marital status: Current Living Situation: Spouse current occupational status: retired Feels Safe at Home: Yes Assistive Devices: Glasses Review of Systems Review of Systems: All systems reviewed & are unremarkable except as noted in HPI & below Physical Exam Physical Exam: Please refer to Dr. Gustafson addendum for physical exam findings Results & Data Results & Data ([place]) Vital Signs (Past 12 Hours) Vital Signs Temp Pulse Resp BP Pulse Ox 08/13/20 14:01 63 21 97 08/13/20 14:00 64 22 181/72 H 96 08/13/20 13:30 65 22 178/65 H 92 08/13/20 13:00 67 19 164/64 H 94 08/13/20 12:55 66 23 167/67 H 95 08/13/20 12:00 81 L 08/13/20 11:42 36.8 C 78 26 H 83 L Diagnostic Findings CXR: IMPRESSION: 1. Aortic tortuosity/ectasia 2. New left mid and lower lung zone airspace opacity suspicious for pneumonia Medications Administered Discontinued Medications Dexamethasone (Dexamethasone Sod Inj 4 Mg/Ml Vial) 6 mg IV NOW STA Stop: 08/13/20 12:59 Last Admin: 08/13/20 14:25 Dose: 6 mg Documented by: [id number] ECG Rate (beats per minute): 65 COVID-19 Results Results COVID-19 Lab Results: RBC 2.81 M/uL (4.7-6.1) L 08/13/20 WBC 3.56 K/uL (4.8-10.8) L 08/13/20 Hgb 10.6 g/dL (14.0-18.0) L 08/13/20 Hct 32.2 % (42-52) L 08/13/20 Plt Count 153 K/uL (130-400) 08/13/20 Neutrophils (%) (Auto) 71.3 % 08/13/20 Lymphocytes (%) (Auto) 22.2 % 08/13/20 Monocytes # (Auto) 0.16 K/uL (0.11-0.59) 08/13/20 Eosinophils # (Auto) 0.01 K/uL (0-0.5) 08/13/20 Immature Granulocyte % (Auto) 1.4 % 08/13/20 Neutrophils # (Auto) 2.54 K/uL (1.4-6.5) 08/13/20 Lymphocytes # (Auto) 0.79 K/uL (1.2-3.4) L 08/13/20 Monocytes # (Auto) 0.16 K/uL (0.11-0.59) 08/13/20 Eosinophils # (Auto) 0.01 K/uL (0-0.5) 08/13/20 Basophils # (Auto) 0.01 K/uL (0-0.2) 08/13/20 Immature Granulocyte # (Auto) 0.05 K/uL (0.00-0.02) H 08/13/20 Macrocytosis Present 08/13/20 Na 138 mmol/L (136-145) 08/13/20 K 4.5 mmol/L (3.5-5.1) 08/13/20 Cl 111 mmol/L (98-107) H 08/13/20 CO2 17 mmol/L (21-32) L 08/13/20 Anion Gap 10.0 (3-11) 08/13/20 BUN 72 mg/dl (7-18) H 08/13/20 Creatinine 3.59 mg/dl (0.6-1.4) H 08/13/20 BUN/Creatinine Ratio 19.9 (10-20) 08/13/20 Glucose Level 113 mg/dl (70-99) H 08/13/20 Ca 9.0 mg/dl (8.5-10.1) 08/13/20 Total Bilirubin 0.4 mg/dl (0.2-1) 08/13/20 AST/SGOT 42 U/L (15-37) H 08/13/20 ALT/SGPT 39 U/L (12-78) 08/13/20 Alkaline Phosphatase 132 U/L (45-117) H 08/13/20 Total Protein 7.8 gm/dl (6.4-8.2) 08/13/20 Albumin 3.5 gm/dl (3.4-5.0) 08/13/20 Globulin 4.3 gm/dl (2.5-4.0) H 08/13/20 Albumin/Globulin Ratio 0.8 (0.9-2) L 08/13/20 Troponin I < 0.015 ng/ml (0-0.045) 08/13/20 WZ-Xda-E-Type Natriuretic Pep 188 pg/ml (0-1800) 08/13/20 CRP 5.11 mg/dl (0-0.29) H 08/13/20 Procalcitonin 0.26 ng/ml (0-0.5) 08/13/20 D-Dimer 2540 ug/L FEU (0-500) H* 08/13/20 PTT 32.4 Seconds (21.0-31.0) H 08/13/20 INR 1.0 (0.9-1.1) 08/13/20 COVID-19 PCR POSITIVE (Negative) A* 08/13/20 Influenza Virus Type A (PCR) Negative (Neg) 08/13/20 Influenza Virus Type B (PCR) Negative (Neg) 08/13/20 Chest X-Ray 08/13/20 Code Status & VTE Plan Code Status Full Code VTE Prophylaxis Plan VTE Prophylaxis will be ordered: No Supervising Physician Co-Signing Physician Notes I saw this patient with the physician transport assistant, I participated in the history, physical, review of systems, and physical exam. I reviewed the medications with the patient and the physician transport assistant and helped reconcile the medications. I helped take a detailed family and social history as well. I formulated the assessment and plan personally with the physician transport assistant and went over it with the patient. ROS-No Headache, No Visual Changes, No Nausea, No Vomiting, No Fever, No Chills, No Neck Pain or Stiffness, No Chest Pain, No Palpitations, No SOB, No CARUSO, No Cough, No Sputum, No Wheezing, No Abdominal Pain, No Diarrhea, No Hematemesis, No Hemoptysis, No Unexpected Weight Loss, No Flank pain, No Melena, No Hematochezia, No Frequency, No Urgency, No Burning, No Hematuria, No Rashes, No Diaphoresis. Appetite is Normal Physical Exam Gen-AAO x 3, NAD, Afebrile Head-NCAT, EOMI, PERRLA, Anicteric Sclera, No Posterior Pharyngeal Erythema Neck-Supple, No JVD, No Thyromegaly, No Masses, No LAD, No Bruits Lungs-Clear to Auscultation Bilaterally, No Rales, No Rhonchi, Faint Wheezing Bilat, No Crepitus Chest-No S4, +S1, +S2, No S3, No Murmurs, No Rubs, No Gallops, No Ectopy Abdomen-Soft, Bowel Sounds Present, Non Tender, Non Distended, No Hepatomegaly, No Splenomegaly, No Palpable Masses, No Rebound, No Rigidity, No Guarding Musculoskeletal-Full Range of Motion Bilaterally, No CVAT Extremities-No Cyanosis, No Clubbing, No Edema Nuero-Cranial Nerves II-XII grossly intact, Motor WNL, DTRs WNL, Strength WNL, Non Focal Psych-Normal Mood
[2020-08-13] MEDS ORDERED: ACETAMINOPHEN 325 MG TAB PO ONE (15:16)
[2020-08-13] MEDS ORDERED: diphenhydrAMINE Capsule 25 MG CAP PO ONE (15:16)
[2020-08-13] MEDS ORDERED: ONDANSETRON INJ 2 MG/ML 2 ML VIAL IV PRN (15:25)
[2020-08-13] MEDS ORDERED: HEPARIN SODIUM/DEXTROSE 25,000 UNITS/500 ML BAG IV SCH (15:25)
[2020-08-13] MEDS ORDERED: ACETAMINOPHEN 325 MG TAB PO PRN (15:25)
[2020-08-13] MEDS ORDERED: POLYETHYLENE (MIRALAX) 17 GM PACK PO PRN (15:25)
[2020-08-13] MEDS ORDERED: HEPARIN 25000 UNIT/500 ML D5W IV ONE (15:39)
[2020-08-13] MEDS: Heparin IV Standard *NO* Bolus IV SCH ×3 (15:50→16:57)
--- NOTE | 2020-08-13 16:01 | Pulmonary Consultation ---
Date of Consultation August 13, 2020 Assessment & Plan (1) COVID-19: (2) Hypoxia: (3) Pneumonia involving left lung: Impression: 84-year-old male admitted with novel coronavirus pneumonia and hypoxemic respiratory failure. Recommendations: 1. Current guidelines would not recommend vitamin D3 zinc or multivitamin including vitamin C at this point time. 2. Continue supportive care with oxygen to maintain oxygen saturations at or above 88%. If the patient's oxygenation worsens, could consider proning although the patient's unilateral lung injury on the left would argue that keeping his qqcyd-gehq-egue may also be effective. Noninvasive positive pressure ventilation may also be considered. Given his comorbidities and advanced age, would have a low threshold for discussing advanced directives and goals of therapy with the patient. 3. Given that the patient is more than 10 days out from his presentation, would not recommend convalescent plasma and given his chronic kidney disease and other medical comorbidities he is at high risk for complications associated with this therapy so will be discontinued. 4. It may be reasonable to continue dexamethasone at this point in time although the patient is fairly far out from his initial presentation. Unclear if it would offer him a clinical benefit but it seems reasonable to continue at the current time. 5. The patient does have an elevated D-dimer however this is commonly seen in COVID-19 infections and may not represent an acute PE. Given that we have an alternative explanation for his hypoxemia that is more likely than PE I would not recommend empiric anticoagulation. In addition a D-dimer can be unreliable in patients with chronic kidney disease. If there is clinical concern for thrombotic events, ultrasound of the lower extremities would be appropriate. I will discontinue the heparin drip and place him on DVT prophylaxis per [employer] guidelines. 6. Recommendations are to not include empiric antibiotics in patients admitted with COVID-19 infection in the absence of clinical symptoms. Negative procalcitonin and normal or low white blood cell count would argue against significant bacterial infection so antibiotics will be discontinued at this point time. Would follow clinically. If he should develop purulent phlegm, respiratory cultures should be obtained and could monitor serial procalcitonin although this may also potentially be affected by the patient's underlying chronic kidney disease. Pulmonary will sign off at this point time. Feel free to contact us if we can be of additional assistance. History of Present Illness Attending Physician: Karthik Gustafson, DO History of Present Illness Asked by hospitalist service to evaluate this patient with COVID-19 pneumonia and hypoxemia. History is obtained from review the electronic medical record. Per institutional guidelines and to prevent exposure to staff and consider conserve PPE, the patient was not directly seen or examined. Please refer to the admission H&P for those details. Briefly the patient is an 84-year-old male with a history of coronary disease hypertension hyperlipidemia and sleep apnea as well as stage IV chronic kidney disease who was brought to the emergency room for fatigue body aches anosmia sinus congestion and progressive shortness of breath over the last 10days. He was referred to the emergency room from an urgent care center. Chest x-ray in [facility] ER showed left greater than right basilar opacities and his Covid test was positive. He was treated with IV dexamethasone and admitted to the hospitalist service. They have ordered antibiotics and empiric heparin based on an elevated D-dimer. Allergies Allergy/AdvReac Type Severity Reaction Status Date / Time Iodinated Contrast Media Allergy Severe KIDNEY Unverified 08/13/20 13:57 PROBLEMS amoxicillin Allergy Unknown . Verified 08/13/20 13:57 atorvastatin Allergy Unknown ` Verified 08/13/20 13:57 gemfibrozil Allergy Unknown . Verified 08/13/20 13:57 Penicillins Allergy Unknown Verified 08/13/20 13:57 rosuvastatin Allergy Unknown . Verified 08/13/20 13:57 morphine AdvReac Mild PT DOES Verified 08/13/20 13:57 NOT LIKE THE WAY IT MAKES HIM FEEL Home Medications Medication Instructions Recorded Confirmed Type cholecalciferol (vitamin D3) 2,000 unit PO QPM 04/12/19 08/13/20 History [Vitamin D3] felodipine 10 mg PO QPM 04/12/19 08/13/20 History folic acid 1 mg PO QPM 04/12/19 08/13/20 History furosemide 40 mg PO QAM 04/12/19 08/13/20 History isosorbide mononitrate 30 mg PO QAM 04/12/19 08/13/20 History lisinopril 40 mg PO QPM 04/12/19 08/13/20 History metoprolol succinate 25 mg PO BID 04/12/19 08/13/20 History omeprazole 20 mg PO QAM 04/12/19 08/13/20 History acetaminophen [Tylenol Extra 1,000 mg PO Q6H PRN 08/13/20 08/13/20 History Strength] allopurinol 100 mg PO PM 08/13/20 08/13/20 History aspirin 81 mg PO QAM 08/13/20 08/13/20 History hydralazine 25 mg PO BIDM 08/13/20 08/13/20 History hydralazine 50 mg PO HS 08/13/20 08/13/20 History lqqfjimlwtfr-uupoypta-diknwo 1 tab PO QAM 08/13/20 08/13/20 History [Centrum Silver] Patient History Medical History (Updated 08/13/20 @ 14:59 by Flora Tejeda PA-C) CAD (coronary artery disease) Chronic anemia Chronic kidney disease CKD (chronic kidney disease), stage IV Fracture of right tibial plateau Hypertension Obesity FLORIDALMA (obstructive sleep apnea) Pneumonia Premature ventricular beat Surgical History (Updated 08/13/20 @ 14:52 by Flora Tejeda PA-C) History of AAA (abdominal aortic aneurysm) repair History of cataract extraction Status post aneurysm repair popliteal 2.8cm L with reverse saph vein graft, dr. gonzalez 10/04/06 Family History Mother Aneurysm Brother Melanoma Social History (Updated 08/13/20 @ 14:52 by Flora Tejeda PA-C) Smoking Status: Former smoker packs per day: 2.54; Years Smoked: 25; Hx Alcohol Use: No Hx Substance Use: No Preferred Language: Croatian Communication Ability: Effective Communication Ability Comment: hard of hearing Tube Room Supervisor Required: No Beliefs That Will Affect Care: None marital status: Current Living Situation: Spouse current occupational status: retired Feels Safe at Home: Yes Assistive Devices: Glasses Review of Systems Review of Systems: Please refer to admission H&P Physical Exam Physical Exam: Physical exam deferred due to institutional COVID-19 restrictions. Results & Data Results & Data ([facility]) Vital Signs (Past 12 Hours) Vital Signs Temp Pulse Pulse Resp BP BP Pulse Ox 08/13/20 15:25 37 C 68 23 186/65 H 93 08/13/20 14:52 37 C 68 23 186/65 H 93 08/13/20 14:01 63 21 97 08/13/20 14:00 64 22 181/72 H 96 08/13/20 13:30 65 22 178/65 H 92 08/13/20 13:00 67 19 164/64 H 94 08/13/20 12:55 66 23 167/67 H 95 08/13/20 12:00 81 L 08/13/20 11:42 36.8 C 78 26 H 83 L Pulse Ox 08/13/20 15:25 94 08/13/20 14:52 08/13/20 14:01 08/13/20 14:00 08/13/20 13:30 08/13/20 13:00 08/13/20 12:55 08/13/20 12:00 08/13/20 11:42 Laboratory Results 08/13/20 12:43 08/13/20 12:43 D-dimer is elevated Diagnostic Findings Chest x-ray was independently reviewed. It demonstrated some left basilar patchy airspace opacity new compared to prior chest x-ray. No effusion. PG Care Time/CCT Total # of Minutes Spent Total Time Spent with Patient: Total time spent is greater than 50% in coordination of care (as documented) at patient's floor/unit and/or counseling patient: Coding Level of Care Code 08059 Initial Inpt Care Lvl 3 Diagnoses COVID-19 U07.1 Hypoxia R09.02 Pneumonia involving left lung J18.9 Time Spent (min) 45
[2020-08-13] MEDS: FAMOTIDINE 40 MG TABLET PO SCH (16:27)
[2020-08-13] MEDS: hydrALAZINE HCL 25 MG TAB PO SCH (16:28)
[2020-08-13] MEDS: ENOXAPARIN INJ 30 MG/0.3 ML SYR SQ SCH (16:48)
[2020-08-13] MEDS: hydrALAZINE TAB 50 MG TAB PO SCH (19:29)
[2020-08-13] MEDS: allopurinoL 100 MG TAB PO SCH (19:30)
[2020-08-13] MEDS: guaiFENesin 600 MG TABCR PO SCH (19:30)
[2020-08-13] MEDS: METOPROLOL SUCC 25MG EXT REL TAB PO SCH (19:31)
[2020-08-13] MEDS: lisinopril 40 MG TAB PO SCH (19:31)
[2020-08-13] MEDS: FOLIC ACID 1 MG TAB PO SCH (19:31)
[2020-08-13] MEDS: FELODIPINE 5 MG TABCR PO SCH (19:31)
[2020-08-13] MEDS: BENZONATATE 100 MG CAPSULE PO SCH (19:32)
[2020-08-13] MEDS: ALBUTEROL HFA 8 GM INHALER INH SCH (19:35)
[2020-08-13] MEDS ORDERED: DOXYCYCLINE HYCLATE 100 MG CAP PO SCH (21:00)
[2020-08-13] MEDS ORDERED: CHOLECALCIFEROL 1,000 UNITS 25 MCG TAB PO SCH (21:00)
[2020-08-13] MEDS: MELATONIN 3 MG TAB PO PRN (23:01)
[2020-08-14 07:04] LABS: Basophils # (auto) 0.01 K/uL (0-0.2); Basophils % (auto) 0.4 %; Hematocrit (blood only) 28.6 % (42-52); Hemoglobin 9.5 g/dL (14.0-18.0); Immature Granulocytes # (auto) 0.08 K/uL (0.00-0.02); Immature Granulocytes % (auto) 3.5 %; Lymphocytes # (auto) 0.26 K/uL (1.2-3.4); Lymphocytes % (auto) 11.5 %; Mean Corpuscular Hemoglobin 37.3 pg (25-34); Mean Corpuscular Hgb Conc 33.2 g/dL (32-36); Mean Corpuscular Volume 112.2 fL (80-100); Mean Platelet Volume 10.3 fL (7.4-10.4); Monocytes # (auto) 0.65 K/uL (0.11-0.59); Monocytes % (auto) 28.6 %; Neutrophils # (auto) 1.27 K/uL (1.4-6.5); Platelet Count 146 K/uL (130-400); RDW Coefficient of Variation 15.5 % (11.5-14.5); RDW Standard Deviation 62.4 fL (36.4-46.3); Red Blood Count 2.55 M/uL (4.7-6.1); White Blood Count 2.27 K/uL (4.8-10.8)
[2020-08-14] MEDS: ALBUTEROL HFA 8 GM INHALER INH SCH ×4 (07:43→19:12)
[2020-08-14 07:50] LABS: Albumin Globulin Ratio 0.8 (0.9-2); Albumin Level 3.1 gm/dl (3.4-5.0); BUN Creatinine Ratio 21.2 (10-20); Calcium 8.1 mg/dl (8.5-10.1); Creatinine Clr Calc Pharmacy 18.7 ml/min; Est GFR (African American) 16.5; Est GFR (Non-African American) 14.2; Globulin 3.8 gm/dl (2.5-4.0); Magnesium 2.5 mg/dl (1.8-2.4); Potassium 5.3 mmol/L (3.5-5.1); Total Protein 6.9 gm/dl (6.4-8.2)
[2020-08-14 07:52] LABS: Bilirubin,Total 0.4 mg/dl (0.2-1)
[2020-08-14 08:04] LABS: Macrocytosis Present
[2020-08-14] MEDS: hydrALAZINE HCL 25 MG TAB PO SCH ×2 (08:38→16:53)
[2020-08-14] MEDS ORDERED: FUROSEMIDE 40 MG TAB PO SCH ×2 (09:00)
[2020-08-14] MEDS: dexAMETHasone 6 MG in SYRINGE 0 ML IV SCH (09:37)
[2020-08-14] MEDS: ASPIRIN 81 MG ECTAB PO SCH (09:37)
[2020-08-14] MEDS: ISOSORBIDE MONO EXTENDED REL 30 MG TABCR PO SCH (09:38)
[2020-08-14] MEDS: ENOXAPARIN INJ 30 MG/0.3 ML SYR SQ SCH (09:38)
[2020-08-14] MEDS: guaiFENesin 600 MG TABCR PO SCH ×2 (09:39→20:13)
[2020-08-14] MEDS: FAMOTIDINE 40 MG TABLET PO SCH (09:40)
[2020-08-14] MEDS: PANTOprazole 40 MG TAB PO SCH (09:40)
[2020-08-14] MEDS: BENZONATATE 100 MG CAPSULE PO SCH ×3 (09:41→20:12)
[2020-08-14] MEDS: METOPROLOL SUCC 25MG EXT REL TAB PO SCH ×2 (09:42→20:15)
[2020-08-14] MEDS: CEROVITE ADV FORMULA TAB PO SCH (12:29)
--- NOTE | 2020-08-14 16:12 | Hospitalist Progress Note ---
Date of Service August 14, 2020 Assessment & Plan (1) COVID-19: (2) Pneumonia involving left lung: (3) Hypoxia: Patient is 84-year-old male with past medical history of coronary artery disease, peripheral arterial disease, s/p AAA repair, popliteal aneurysm repair, hypertension, CKD stage IV, hyperlipidemia, obstructive sleep apnea on 2 L of nasal cannula presented to the ED with Covid symptoms. Patient have had symptoms for the last 10 days. Appreciate pulmonary medicine input patient is not a candidate for remdesivir given his chronic kidney disease. We will continue with the Decadron. Currently he is on 2 L of nasal cannula. He usually does not use oxygen during the daytime. Patient was found to have elevated D-dimer. Heparin is discontinued, agree. Elevated D-dimer likely in the setting of Covid/CKD. Indication for antibiotics. White count is within normal limit. Patient is afebrile. Procalcitonin is not concerning. Blood cultures were obtained on admission, negative thus far. Pulmonary toilet with albuterol, incentive spirometry, self proning continue PPI, start pepcid for GI prophylaxis. (4) CAD (coronary artery disease): (5) Hypertension: (6) PAD (peripheral artery disease): Continue with [employer]POR[employer]ATIONS [employer]GER aspirin, Lopressor, lisinopril, hydralazine, Imdur and felodipine Continue to hold Lasix for now. (7) CKD (chronic kidney disease), stage IV: Creatinine close to his baseline. Baseline is around 3-3.5. BUN is elevated. Will monitor urine output. Avoid any nephrotoxic agents. Continue to hold Lasix for now. If renal function worsens, will consult nephrology. (8) FLORIDALMA (obstructive sleep apnea): on 2L of O2 at HS continue O2 supplementation (9) Chronic anemia: Secondary to CKD Stable Macrocytic, continue folic acid (10) DVT prophylaxis: Fall: PCP Dr. Messina upon discharge. Admission and Anticipated Discharge Date Admission Date: August 13, 2020 Subjective Patient ports he is feeling okay. Shortness of breath is improved. Does have some cough. Denies any fever or diaphoresis. Denies any chest pain or abdominal pain. Rest of the review of systems negative. Review of Systems Review of Systems: All systems reviewed & are unremarkable except as noted in HPI & below Physical Exam Physical Exam: General: awake and alert, resting comfortably in the recliner HENT: NCAT, MMM, EOMI Eyes: PERRLA Neck: Supple, normal range of motion CVS: normal rate and rhythm Resp: b/l coarse breath sounds Abdomen: Soft, nondistended, nontender Extremities: trace lower extremity edema Neuro: face symmetric, strength grossly equal, no focal deficit Skin: warm and dry, no rashes/lesions/errythema MSK: normal ROM, no joint swelling/erythema Results & Data Results & Data ([facility]) Vital Signs (Past 12 Hours) Vital Signs Temp Pulse Pulse Pulse Resp BP Pulse Ox 08/14/20 16:06 36.7 C 72 21 137/61 93 08/14/20 15:40 70 18 94 08/14/20 15:25 08/14/20 11:48 36.6 C 66 24 135/61 93 08/14/20 11:40 67 20 93 08/14/20 10:42 73 146/61 H 92 08/14/20 07:45 70 18 93 08/14/20 07:33 36.7 C 72 24 150/69 H 93 08/14/20 06:20 63 Pulse Ox 08/14/20 16:06 08/14/20 15:40 08/14/20 15:25 92 08/14/20 11:48 08/14/20 11:40 08/14/20 10:42 08/14/20 07:45 08/14/20 07:33 08/14/20 06:20
[2020-08-14] MEDS: hydrALAZINE TAB 50 MG TAB PO SCH (20:13)
[2020-08-14] MEDS: FELODIPINE 5 MG TABCR PO SCH (20:14)
[2020-08-14] MEDS: FOLIC ACID 1 MG TAB PO SCH (20:14)
[2020-08-14] MEDS: allopurinoL 100 MG TAB PO SCH (20:14)
[2020-08-14] MEDS: lisinopril 40 MG TAB PO SCH (20:15)
--- NOTE | 2020-08-14 22:16 | Electrocardiogram Report ---
Test Reason : Blood Pressure : / mmHG Vent. Rate : 065 BPM Atrial Rate : 065 BPM P-R Int : 150 ms QRS Dur : 098 ms QT Int : 410 ms P-R-T Axes : 038 -23 012 degrees QTc Int : 426 ms Normal sinus rhythm Voltage criteria for left ventricular hypertrophy Abnormal ECG When compared with ECG of 12-APR-2019 16:53, Premature ventricular complexes are no longer Present Confirmed by Florencio Rolle ([id number]) on 08/14/2020 10:16:38 PM Referred By: REFERRED SELF Confirmed By:Florencio Rolle
[2020-08-14] MEDS: MELATONIN 3 MG TAB PO PRN (22:51)
[2020-08-15] MEDS: ALBUTEROL HFA 8 GM INHALER INH SCH ×4 (07:25→19:37)
[2020-08-15 08:00] LABS: Basophils # (auto) 0.01 K/uL (0-0.2); Basophils % (auto) 0.2 %; Hemoglobin 10.5 g/dL (14.0-18.0); Immature Granulocytes # (auto) 0.12 K/uL (0.00-0.02); Lymphocytes # (auto) 0.54 K/uL (1.2-3.4); Lymphocytes % (auto) 8.9 %; Mean Corpuscular Hemoglobin 36.8 pg (25-34); Mean Corpuscular Hgb Conc 32.8 g/dL (32-36); Mean Corpuscular Volume 112.3 fL (80-100); Mean Platelet Volume 10.3 fL (7.4-10.4); Monocytes % (auto) 11.5 %; Neutrophils # (auto) 4.72 K/uL (1.4-6.5); Neutrophils % (auto) 77.4 %; Platelet Count 184 K/uL (130-400); RDW Coefficient of Variation 15.5 % (11.5-14.5); RDW Standard Deviation 63.1 fL (36.4-46.3); Red Blood Count 2.85 M/uL (4.7-6.1); White Blood Count 6.09 K/uL (4.8-10.8)
[2020-08-15 08:11] LABS: D Dimer 2340 ug/L FEU (0-500)
[2020-08-15] MEDS: ENOXAPARIN INJ 30 MG/0.3 ML SYR SQ SCH (08:34)
[2020-08-15] MEDS: METOPROLOL SUCC 25MG EXT REL TAB PO SCH ×2 (08:34→21:14)
[2020-08-15] MEDS: dexAMETHasone 6 MG in SYRINGE 0 ML IV SCH (08:34)
[2020-08-15] MEDS: hydrALAZINE HCL 25 MG TAB PO SCH ×2 (08:36→16:23)
[2020-08-15] MEDS: FAMOTIDINE 40 MG TABLET PO SCH (08:36)
[2020-08-15] MEDS: BENZONATATE 100 MG CAPSULE PO SCH ×3 (08:37→21:14)
[2020-08-15] MEDS: PANTOprazole 40 MG TAB PO SCH (08:37)
[2020-08-15] MEDS: ASPIRIN 81 MG ECTAB PO SCH (08:37)
[2020-08-15] MEDS: guaiFENesin 600 MG TABCR PO SCH ×2 (08:37→21:13)
[2020-08-15] MEDS: ISOSORBIDE MONO EXTENDED REL 30 MG TABCR PO SCH (08:38)
[2020-08-15 08:39] LABS: Albumin Level 3.2 gm/dl (3.4-5.0); BUN Creatinine Ratio 22.2 (10-20); Calcium 8.6 mg/dl (8.5-10.1); Creatinine Clr Calc Pharmacy 17.2 ml/min; Est GFR (African American) 14.9; Est GFR (Non-African American) 12.9; Potassium 4.9 mmol/L (3.5-5.1)
[2020-08-15 08:42] LABS: Albumin Globulin Ratio 0.8 (0.9-2); Bilirubin,Total 0.4 mg/dl (0.2-1); Globulin 4.1 gm/dl (2.5-4.0); Total Protein 7.3 gm/dl (6.4-8.2)
[2020-08-15 08:50] LABS: Macrocytosis Present
[2020-08-15] MEDS ORDERED: FUROSEMIDE 40 MG/4 ML VIAL IV ONE (09:14)
[2020-08-15] MEDS ORDERED: FUROSEMIDE 40 MG in SYRINGE 0 ML IV ONE (09:15)
[2020-08-15] MEDS: CEROVITE ADV FORMULA TAB PO SCH (11:04)
--- NOTE | 2020-08-15 11:15 | Hospitalist Progress Note ---
Date of Service August 15, 2020 Assessment & Plan (1) COVID-19: (2) Pneumonia involving left lung: (3) Hypoxia: Patient is 84-year-old male with past medical history of coronary artery disease, peripheral arterial disease, s/p AAA repair, popliteal aneurysm repair, hypertension, CKD stage IV, hyperlipidemia, obstructive sleep apnea on 2 L of nasal cannula presented to the ED with Covid symptoms. Patient have had symptoms for the last 10 days. Appreciate pulmonary medicine input. Patient is not a candidate for remdesivir given his chronic kidney disease. We will continue with the Decadron. Currently he is on high flow nasal cannula. Likely component of diastolic heart failure, EF of 60% back in March 2019. PA p.o. Lasix was on hold. IV dose Lasix 40 mg today. To ins and outs along with daily weights. Patient was found to have elevated D-dimer. Heparin is discontinued, agree. Elevated D-dimer likely in the setting of Covid/CKD. No indication for antibiotics. White count is within normal limit. Patient is afebrile. Procalcitonin is not concerning. Blood cultures were obtained on admission, negative thus far. Pulmonary toilet with albuterol, incentive spirometry, self proning continue PPI, start pepcid for GI prophylaxis. (4) CAD (coronary artery disease): (5) Hypertension: (6) PAD (peripheral artery disease): Continue with MARKETING COORDINATOR aspirin, Lopressor, lisinopril, hydralazine, Imdur and felodipine Continue to hold Lasix for now. (7) CKD (chronic kidney disease), stage IV: Creatinine close to his baseline. Baseline is around 3-3.5. BUN is elevated. Will monitor urine output. Avoid any nephrotoxic agents. Continue to hold Lasix for now. If renal function worsens, will consult nephrology. (8) FLORIDALMA (obstructive sleep apnea): On 2L of O2 at HS continue O2 supplementation On HFNC currently. (9) Chronic anemia: Secondary to CKD Stable Macrocytic, continue folic acid (10) DVT prophylaxis: Fall: PCP Dr. Messina upon discharge. was updated today. Admission and Anticipated Discharge Date Admission Date: August 13, 2020 Subjective Patient was placed on high flow nasal cannula at 15 L. At baseline, he uses 2 L of nasal cannula at nighttime. Does endorse some shortness of breath. Does have intermittent cough. Appetite has been good. Denies any chest pain or abdominal pain. The review of system is negative. Physical Exam Physical Exam: General: awake and alert, resting comfortably in the recliner HENT: NCAT, MMM, EOMI Eyes: PERRLA Neck: Supple, normal range of motion CVS: normal rate and rhythm Resp: b/l coarse breath sounds Abdomen: Soft, nondistended, nontender Extremities: trace lower extremity edema Neuro: face symmetric, strength grossly equal, no focal deficit Skin: warm and dry, no rashes/lesions/errythema MSK: normal ROM, no joint swelling/erythema Results & Data Results & Data ([facility]) Vital Signs (Past 12 Hours) Vital Signs Temp Pulse Pulse Pulse Resp BP Pulse Ox 08/15/20 10:53 62 20 91 08/15/20 09:44 62 08/15/20 08:38 74 135/49 L 08/15/20 08:20 86 L 08/15/20 08:01 76 L 08/15/20 07:26 74 21 84 L 08/15/20 06:35 37.1 C 59 L 16 129/55 L 91 08/15/20 02:55 37.0 C 73 21 143/54 H 91 08/15/20 00:22 37.1 C 65 20 136/69 92
[2020-08-15] MEDS: FELODIPINE 5 MG TABCR PO SCH (21:13)
[2020-08-15] MEDS: allopurinoL 100 MG TAB PO SCH (21:14)
[2020-08-15] MEDS: lisinopril 40 MG TAB PO SCH (21:14)
[2020-08-15] MEDS: FOLIC ACID 1 MG TAB PO SCH (21:14)
[2020-08-15] MEDS: hydrALAZINE TAB 50 MG TAB PO SCH (21:14)
[2020-08-15] MEDS: MELATONIN 3 MG TAB PO PRN (22:11)
[2020-08-16] MEDS ORDERED: ALBUTEROL HFA 8 GM INHALER INH ONE (00:16)
[2020-08-16] MEDS: dexAMETHasone 6 MG in SYRINGE 0 ML IV SCH (00:52)
[2020-08-16 01:10] LABS: Hematocrit (blood only) 31.2 % (42-52); Hemoglobin 10.4 g/dL (14.0-18.0); Mean Corpuscular Hemoglobin 36.6 pg (25-34); Mean Corpuscular Hgb Conc 33.3 g/dL (32-36); Mean Corpuscular Volume 109.9 fL (80-100); Mean Platelet Volume 9.7 fL (7.4-10.4); Platelet Count 193 K/uL (130-400); RDW Coefficient of Variation 15.5 % (11.5-14.5); RDW Standard Deviation 61.8 fL (36.4-46.3); Red Blood Count 2.84 M/uL (4.7-6.1); White Blood Count 7.36 K/uL (4.8-10.8)
[2020-08-16 01:10] LABS: Allen Test Pos (Pos); Base Excess ABG -7.2 mEq/L (-9-1.8); HCO3 ABG 16 mmol/L (19-24); Oxygen Saturation ABG 94.6 % (90-95); PCO2 ABG 24 mmHg (35-46); PO2 ABG 74 mmHg (80-95); pH ABG 7.42 (7.35-7.45)
[2020-08-16 01:23] LABS: Partial Thromboplastin Ratio 1.3; Partial Thromboplastin Time 35.3 Seconds (21.0-31.0)
[2020-08-16 01:28] LABS: BUN Creatinine Ratio 24.8 (10-20); Calcium 7.7 mg/dl (8.5-10.1); Creatinine Clr Calc Pharmacy 17.1 ml/min; Est GFR (African American) 14.8; Est GFR (Non-African American) 12.7; Magnesium 2.2 mg/dl (1.8-2.4); Potassium 5.2 mmol/L (3.5-5.1)
[2020-08-16 01:32] LABS: Basophils # (auto) 0.01 K/uL (0-0.2); Basophils % (auto) 0.1 %; Immature Granulocytes # (auto) 0.13 K/uL (0.00-0.02); Immature Granulocytes % (auto) 1.8 %; Lymphocytes # (auto) 0.46 K/uL (1.2-3.4); Lymphocytes % (auto) 6.3 %; Monocytes # (auto) 0.64 K/uL (0.11-0.59); Monocytes % (auto) 8.7 %; Neutrophils # (auto) 6.12 K/uL (1.4-6.5); Neutrophils % (auto) 83.1 %
[2020-08-16] MEDS: ALBUTEROL HFA 8 GM INHALER INH SCH ×4 (07:50→19:48)
[2020-08-16] MEDS: hydrALAZINE HCL 25 MG TAB PO SCH ×2 (08:17→19:14)
[2020-08-16] MEDS: ASPIRIN 81 MG ECTAB PO SCH (08:18)
[2020-08-16] MEDS: FAMOTIDINE 40 MG TABLET PO SCH (08:18)
[2020-08-16] MEDS: BENZONATATE 100 MG CAPSULE PO SCH ×3 (08:18→20:41)
[2020-08-16] MEDS: guaiFENesin 600 MG TABCR PO SCH ×2 (08:18→20:40)
[2020-08-16] MEDS: METOPROLOL SUCC 25MG EXT REL TAB PO SCH (08:18)
[2020-08-16] MEDS: PANTOprazole 40 MG TAB PO SCH (08:19)
[2020-08-16] MEDS: ENOXAPARIN INJ 30 MG/0.3 ML SYR SQ SCH (08:19)
[2020-08-16] MEDS: ISOSORBIDE MONO EXTENDED REL 30 MG TABCR PO SCH (08:19)
--- NOTE | 2020-08-16 08:55 | XRay Report ---
XR chest 1V portable CLINICAL HISTORY: low o2 COMPARISON STUDY: Chest radiograph August 13, 2020. FINDINGS: Lung volumes are normal. There is no pneumothorax or pleural effusion. Moderate bilateral a irspace opacities have progressed since exam of August 13, 2020. Cardiomegaly is unchanged. Mediasti nal contours are stable. IMPRESSION: Progression of moderate bilateral airspace opacities consistent with an infectious proce ss. ACT 112: Negative or not required by law. Electronically signed by: Ephraim Toledo M.D. 08/16/2020 8:54 AM
[2020-08-16] MEDS ORDERED: LORazepam 0.25 MG/0.5 ML VIAL IV STA (09:07)
[2020-08-16] MEDS ORDERED: FUROSEMIDE 10 MG/ML 10 ML VIAL IV ONE (09:13)
[2020-08-16] MEDS: FUROSEMIDE 60 MG in SYRINGE 0 ML IV ONE ×2 (09:16→12:33)
--- NOTE | 2020-08-16 09:48 | Pulmonology Progress Note ---
Date of Service August 16, 2020 Assessment & Plan (1) COVID-19: (2) Hypoxia: (3) Pneumonia involving left lung: Impression: 84-year-old male admitted with novel coronavirus pneumonia and hypoxemic respiratory failure. He unfortunately has had progression of his hypoxemic respiratory failure and is now on BiPAP. He is obese and likely experiencing some atelectasis. Unfortunately his chronic kidney disease complicates issues. Recommendations: 1. COVID-19: Continue dexamethasone. Not a candidate for remdesivir due to chronic kidney disease. 2. Acute hypoxemic respiratory failure: The patient is had escalation of his oxygen requirement and new chest x-ray demonstrates progression of bibasilar opacities. Discussed with respiratory therapy and the patient need to self prone. Unclear if he can be compliant with this but I think he may benefit given his central obesity. Continue BiPAP as needed. Given the patient's underlying kidney disease, age, and comorbidities, I am not sure that he is a great candidate for intubation mechanical ventilation would have a low threshold for getting palliative care involved to discuss CODE STATUS and potential implications should he fail to improve. 3. It may be reasonable to continue dexamethasone at this point in time although the patient is fairly far out from his initial presentation. Unclear if it would offer him a clinical benefit but it seems reasonable to continue at the current time. 4. Diuresis would definitely be beneficial although somewhat complicated by the patient's underlying kidney disease. Nephrology consultation may be beneficial especially if we are talking about goals of therapy and potential intervention with life-sustaining therapies. We will continue to follow with you given his clinical deterioration in the last 24 hours. Admission and Anticipated Discharge Date Admission Date: August 13, 2020 Subjective Patient seen and examined on the Covid unit. Called by respiratory therapy as the patient's oxygenation status was worsening. He is transitioned to a posit linh airway pressure. He is not coughing or expectorating phlegm. Review of Systems Review of Systems: All systems reviewed & are unremarkable except as noted in HPI & below Physical Exam Constitutional: + obese; no acute distress Neck: trachea midline, no thyromegaly Respiratory: + respiratory distress and + uses accessory muscles Auscultation: + rales Tachypneic on full face BiPAP. Cardiovascular: RRR, no murmur, no edema Gastrointestinal (Abdomen): normal bowel sounds, soft, nontender, no hepatosplenomegaly Musculoskeletal: Extremities: extremities normal to inspection Skin: no rashes, warm and dry Neurologic: Nonfocal exam Lymphatic: no cervical lymphadenopathy Results & Data Results & Data ([facility]) Vital Signs (Past 12 Hours) Vital Signs Temp Pulse Pulse Pulse Resp BP Pulse Ox 08/16/20 09:23 70 37 H 91 08/16/20 08:10 71 28 H 87 L 08/16/20 07:50 71 28 H 75 L 08/16/20 07:09 37.4 C 67 24 145/74 H 94 08/16/20 06:33 27 H 93 08/16/20 05:20 37.5 C 65 24 155/65 H 93 08/16/20 03:59 63 26 H 92 08/16/20 00:28 69 70 26 H 83 L 08/15/20 23:43 37.5 C 61 24 127/56 L 86 L 08/15/20 23:00 77 08/15/20 22:35 79 24 91 Laboratory Results 08/16/20 00:52 08/16/20 00:52 Diagnostic Findings Chest x-ray from this morning was independently reviewed. It demonstrates progressive bibasilar interstitial opacities. PG Care Time/CCT Total # of Minutes Spent Total Time Spent with Patient: Total time spent is greater than 50% in coordination of care (as documented) at patient's floor/unit and/or counseling p atient: Coding Level of Care Code 78369 Subseq Hosp Care Lvl 3 Diagnoses COVID-19 U07.1 Hypoxia R09.02 Pneumonia involving left lung J18.9
--- NOTE | 2020-08-16 11:36 | Hospitalist Progress Note ---
Date of Service August 16, 2020 Assessment & Plan (1) COVID-19: (2) Pneumonia involving left lung: (3) Hypoxia: Patient is 84-year-old male with past medical history of coronary artery disease, peripheral arterial disease, s/p AAA repair, popliteal aneurysm repair, hypertension, CKD stage IV, hyperlipidemia, obstructive sleep apnea on 2 L of nasal cannula presented to the ED with Covid symptoms. Patient have had symptoms for the last 10 days. Appreciate pulmonary medicine input. Patient is not a candidate for remdesivir given his chronic kidney disease. We will continue with the Decadron. Given his worsening hypoxia this morning patient was placed on BiPAP. Likely component of diastolic heart failure, EF of 60% back in March 2019. PA p.o. Lasix was on hold. If patient continues to decline, will consider palliative medicine input and goals of care discussion. At the moment patient remains full code. Ordered IV Lasix 60 mg now. Monitor ins and outs along with daily weights. Will consult nephrology for further assistance in the setting of CKD. Patient was found to have elevated D-dimer. Heparin is discontinued, agree. Elevated D-dimer likely in the setting of Covid/CKD. No indication for antibiotics. White count is within normal limit. Patient is afebrile. Procalcitonin is not concerning. Blood cultures were obtained on admission, negative thus far. Pulmonary toilet with albuterol, incentive spirometry, self proning continue PPI, start pepcid for GI prophylaxis. (4) CAD (coronary artery disease): (5) Hypertension: (6) PAD (peripheral artery disease): Continue with CARGO SURVEYOR aspirin, Lopressor, lisinopril, hydralazine, Imdur and felodipine Continue to hold PO Lasix for now. (7) CKD (chronic kidney disease), stage IV: Creatinine close to his baseline. Baseline is around 3-3.5. BUN is elevated. Will monitor urine output. Avoid any nephrotoxic agents. Continue to hold CARGO SURVEYOR PO Lasix for now. Consult nephrology for their input. Hyponatremia/hyperkalemia Likely in the setting of hypervolemic hyponatremia. Continue to diurese. Will continue to monitor. (8) FLORIDALMA (obstructive sleep apnea): On 2L of O2 at HS continue O2 supplementation Currently remains on BiPAP. (9) Chronic anemia: Secondary to CKD Stable Macrocytic, continue folic acid (10) DVT prophylaxis: Fall: PCP Dr. Messina upon discharge. I called his and updated the clinical course today. Admission and Anticipated Discharge Date Admission Date: August 13, 2020 Subjective Patient was on CPAP overnight. This morning he was hypoxic and was placed on the BiPAP. Urine output of 1.2 L in the last 24 hours after IV Lasix 40 mg. Patient reports this morning he was feeling short of breath. Denies any chest pain. Does have productive cough. Denies any fever or any chest pain. Denies any abdominal pain, diarrhea or dysuria. Rest of the review of system is negative. Review of Systems Review of Systems: All systems reviewed & are unremarkable except as noted in HPI & below Physical Exam Physical Exam: General: awake and alert, was on the BiPAP, not appear to be in any distress HENT: NCAT, MMM, EOMI Eyes: PERRLA Neck: Supple, normal range of motion CVS: normal rate and rhythm Resp: b/l coarse breath sounds Abdomen: Soft, nondistended, nontender Extremities: trace lower extremity edema Neuro: No gross focal deficits appreciated Skin: warm and dry MSK: normal ROM, no joint swelling/erythema Results & Data Results & Data ([facility]) Vital Signs (Past 12 Hours) Vital Signs Temp Pulse Pulse Pulse Resp BP Pulse Ox 08/16/20 10:55 37.1 C 67 26 H 160/79 H 86 L 08/16/20 09:23 70 37 H 91 08/16/20 08:10 71 28 H 87 L 08/16/20 07:50 71 28 H 75 L 08/16/20 07:09 37.4 C 67 24 145/74 H 94 08/16/20 06:33 27 H 93 08/16/20 05:20 37.5 C 65 24 155/65 H 93 08/16/20 03:59 63 26 H 92 08/16/20 00:28 69 70 26 H 83 L 08/15/20 23:43 37.5 C 61 24 127/56 L 86 L
[2020-08-16] MEDS: CEROVITE ADV FORMULA TAB PO SCH (14:50)
[2020-08-16] MEDS ORDERED: OLANZapine 10 MG/2.1 ML SDV IM PRN (19:18)
[2020-08-16] MEDS ORDERED: dexAMETHasone 6 MG in SYRINGE 0 ML IV STA (19:21)
[2020-08-16] MEDS: hydrALAZINE TAB 50 MG TAB PO SCH (20:39)
[2020-08-16] MEDS: FOLIC ACID 1 MG TAB PO SCH (20:40)
[2020-08-16] MEDS: FELODIPINE 5 MG TABCR PO SCH (20:41)
[2020-08-16] MEDS: allopurinoL 100 MG TAB PO SCH (20:41)
[2020-08-16 21:29] LABS: Allen Test Pos (Pos); Base Excess ABG -7.7 mEq/L (-9-1.8); HCO3 ABG 16 mmol/L (19-24); Oxygen Saturation ABG 91.7 % (90-95); PCO2 ABG 29 mmHg (35-46); PO2 ABG 67 mmHg (80-95); pH ABG 7.37 (7.35-7.45)
[2020-08-16] MEDS ORDERED: MoRPHine SULFATE 2 MG/ML CARP ONE (21:54)
[2020-08-17] MEDS: METOPROLOL TARTRATE 1 MG/ML VIAL IV SCH ×5 (00:34→23:04)
[2020-08-17] MEDS ORDERED: methylPREDNISolone 20 MG in SYRINGE 0 ML IV STA (01:03)
[2020-08-17] MEDS ORDERED: OLANZapine 10 MG/2.1 ML SDV IM STA (01:03)
[2020-08-17] MEDS ORDERED: methylPREDNISolone 125 MG/2 ML VIAL IV STA (01:08)
--- NOTE | 2020-08-17 06:54 | XRay Report ---
XR chest 1V portable CLINICAL HISTORY: Hypoxia COMPARISON STUDY: 08/16/2020 FINDINGS: The heart is enlarged. There are persistent bilateral pulmonary airspace opacities. The mul tifocal pneumonia is suspected. There is minor blunting of right lateral costophrenic angle.[ IMPRESSION: Persistent multifocal airspace opacities consistent with a multifocal pneumonia ACT 112: Negative or not required by law. Electronically signed by: Hosea Agrawal M.D. 08/17/2020 6:53 AM
[2020-08-17] MEDS: ALBUTEROL HFA 8 GM INHALER INH SCH ×4 (07:07→19:26)
[2020-08-17 08:22] LABS: BUN Creatinine Ratio 25.3 (10-20); Creatinine Clr Calc Pharmacy 15.9 ml/min; Est GFR (African American) 13.8; Est GFR (Non-African American) 11.9; Magnesium 2.6 mg/dl (1.8-2.4); Phosphorus 4.9 mg/dl (2.5-4.9); Potassium 5.2 mmol/L (3.5-5.1)
--- NOTE | 2020-08-17 09:47 | Palliative Care Consultation ---
Date of Consultation August 17, 2020 Assessment & Plan (1) Palliative care encounter: This is a 84-year-old male presented to the ED secondary to COVID-19 symptoms including shortness of breath that have worsened over the past week prior to presented to the hospital. He has an extensive PMH that includes popliteal aneurysm, HTN, HLD, FLORIDALMA, and CKD IV. He was treated with IV Dexamethasone and was placed on BiPAP. Unfortunately, this individual has end stage renal disease with a worsening creatinine, today 4.23. Per discussion with the wall scraper and nursing, it is likely the patient is heading towards requiring mechanical ventilation. At the time of consultation, he was a Full Code. palliative Care was consulted to discuss goals of care. The patient was resting, breathing even unlabored breaths when I entered room 212. Constantine is AAOx3 and able to communicate with the BiPAP mask on. We discussed his hospitalization course, including his Gentle diuresis has been done, but is tedious with his end stage renal disease. Currently creatinine is 4.23 today. I talked at length with Constantine Meredith about his current condition. He is able to fully understand his condition. He mentioned that his physicians has suggested and discussed him doing hemodialysis for the past 3 years. He also referenced that he has been on a ventilator before when he underwent repair of his AAA. I did discuss in detail what being on a ventilator would look like with sedation, possible pressors, and taking into consideration his age and previous extensive comorbidities, with his poor renal function does lead to a poor prognosis. 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 We discussed comfort measures and what that looks like, and when it feels like he has lost all control of what is happening, this is something he does have control over, how the last phase of his life goes. He would like to continue supportive treatment for now, but does not want escalation of care, and does not want CPR, intubation, or hemodialysis. DNR/DNI is now reflected in the computer order set. Should his respiratory status decline, he would like to be transitioned to comfort measures only. I did order Roxicodone PRN for him in case he does start to have air hunger. He indicated that Morphine does cause him to have a 'high' sensation and would like to initially start with something e lse. Eventually, I anticipate we will be able to transition back to Morphine depending on how he progresses. Flavia is working to get in touch with Yolanda, another sister. They all live within a few blocks of each other. I suggested an Ipad ZOOM with Constantine and he was very eager to do so. I relayed that information to Flavia and an iPAD visit is planned for 1600 today which I appreciate nursing helping them with facilitating. Meeting ID [id number]. Palliative will continue to follow this gentleman's symptom management and oxygen needs. (2) COVID-19: (3) Hypoxia: (4) Obesity: (5) Pneumonia involving left lung: (6) CKD (chronic kidney disease), stage IV: History of Present Illness Reason for Consultation: Goals of care Requesting Physician: Dr. Sellers Attending Physician: Josey Sellers MD History of Present Illness This is a 84-year-old male presented to the ED secondary to COVID-19 symptoms including shortness of breath that have worsened over the past week prior to presented to the hospital. He has an extensive PMH that includes popliteal aneurysm, HTN, HLD, FLORIDALMA, and CKD IV. He was treated with IV Dexamethasone and was placed on BiPAP. Unfortunately, this individual has end stage renal disease with a worsening creatinine, today 4.23. Per discussion with the wall scraper and nursing, it is likely the patient is heading towards requiring mechanical ventilation. At the time of consultation, he was a Full Code. palliative Care was consulted to discuss goals of care. Please see A/P for further details. Thank you kindly for involving palliative care with this individual. Allergies Allergy/AdvReac Type Severity Reaction Status Date / Time Iodinated Contrast Media Allergy Severe KIDNEY Unverified 08/13/20 13:57 PROBLEMS amoxicillin Allergy Unknown . Verified 08/13/20 13:57 atorvastatin Allergy Unknown ` Verified 08/13/20 13:57 gemfibrozil Allergy Unknown . Verified 08/13/20 13:57 Penicillins Allergy Unknown Verified 08/13/20 13:57 rosuvastatin Allergy Unknown . Verified 08/13/20 13:57 morphine AdvReac Mild PT DOES Verified 08/13/20 13:57 NOT LIKE THE WAY IT MAKES HIM FEEL Home Medications Medication Instructions Recorded Confirmed Type cholecalciferol (vitamin D3) 2,000 unit PO QPM 04/12/19 08/13/20 History [Vitamin D3] felodipine 10 mg PO QPM 04/12/19 08/13/20 History folic acid 1 mg PO QPM 04/12/19 08/13/20 History furosemide 40 mg PO QAM 04/12/19 08/13/20 History isosorbide mononitrate 30 mg PO QAM 04/12/19 08/13/20 History lisinopril 40 mg PO QPM 04/12/19 08/13/20 History metoprolol succinate 25 mg PO BID 04/12/19 08/13/20 History omeprazole 20 mg PO QAM 04/12/19 08/13/20 History acetaminophen [Tylenol Extra 1,000 mg PO Q6H PRN 08/13/20 08/13/20 History Strength] allopurinol 100 mg PO PM 08/13/20 08/13/20 History aspirin 81 mg PO QAM 08/13/20 08/13/20 History hydralazine 25 mg PO BIDM 08/13/20 08/13/20 History hydralazine 50 mg PO HS 08/13/20 08/13/20 History melatonin 5 mg PO HS 08/13/20 08/13/20 History [id number]-[id number] 1 tab PO QAM 08/13/20 08/13/20 History [Centrum Silver] Patient History Medical History CAD (coronary artery disease) Chronic anemia Chronic kidney disease CKD (chronic kidney disease), stage IV Fracture of right tibial plateau Hypertension Obesity FLORIDALMA (obstructive sleep apnea) Palliative care encounter Pneumonia Premature ventricular beat Surgical History History of AAA (abdominal aortic aneurysm) repair History of cataract extraction Status post aneurysm repair popliteal 2.8cm L with reverse saph vein graft, dr. gonzalez 10/04/06 Family History Mother Aneurysm Brother Melanoma Social History Smoking Status: Former smoker packs per day: 2.54; Years Smoked: 25; Hx Alcohol Use: No Hx Substance Use: No Preferred Language: Japanese Communication Ability: Effective Sec Reporting Consultant Required: No Beliefs That Will Affect Care: None marital status: Current Living Situation: Spouse current occupational status: retired Feels Safe at Home: Yes Assistive Devices: BiPap, Glasses and Oxygen - Continuous Review of Systems Review of Systems: [place] [facility] Assessment Scale - Revised Pain: 0/3 Shortness of Breath: 2/3 Anxiety: 0/3 Palliative Performance Scale: 20% Physical Exam Constitutional: + ill appearing, cooperative and comfortable Respiratory: normal respiratory effort, lungs clear to auscultation Auscultation: + diminished lung sounds Cardiovascular: Extremities: normal capillary refill and + edema Gastrointestinal (Abdomen): normal bowel sounds, soft, nontender, no hepatosplenomegaly Skin: no rashes, warm and dry normal turgor Psychiatric: A+Ox3, euthymic affect Insight: good insight Judgement: good judgement Genitourinary: indwelling pierre catheter Results & Data ([facility]) Vital Signs (Past 12 Hours) Vital Signs Temp Pulse Pulse Pulse Resp BP BP 08/17/20 07:19 37.2 C 75 27 H 172/67 H 08/17/20 07:08 73 34 H 08/17/20 06:08 68 156/50 H 08/17/20 06:06 68 08/17/20 03:55 37.0 C 65 30 H 08/17/20 03:30 66 33 H 08/16/20 23:59 37.0 C 69 30 H 08/16/20 23:57 70 08/16/20 23:06 65 34 H BP Pulse Ox 08/17/20 07:19 93 08/17/20 07:08 88 L 08/17/20 06:08 08/17/20 06:06 156/50 H 08/17/20 03:55 115/56 L 92 08/17/20 03:30 91 08/16/20 23:59 127/47 L 93 08/16/20 23:57 08/16/20 23:06 92 PG Care Time/CCT Total # of Minutes Spent Total Time Spent with Patient: Total time spent is greater than 50% in coordination of care (as documented) at patient's floor/unit and/or counseling patient: 100 Coding Level of Care Code 13072 Inpt Consult Level 4 Diagnoses Palliative care encounter Z51.5 COVID-19 U07.1 Hypoxia R09.02 Obesity E66.9 Pneumonia involving left lung J18.9 CKD (chronic kidney disease), stage IV N18.4 Time Spent (min) 100 Time Spent Midlevel Total time spent 100 minutes with > 50% of that time spent assessing the patient, discussing goals of care, symptom management and collaborating with IDT
--- NOTE | 2020-08-17 10:38 | Critical Care Progress Note ---
Date of Service August 17, 2020 Assessment & Plan (1) COVID-19: (2) Hypoxia: (3) Pneumonia involving left lung: Impression: 84-year-old male admitted with novel coronavirus pneumonia and hypoxemic respiratory failure. He unfortunately has had progression of his hypoxemic respiratory failure and is now on BiPAP. He is obese and likely experiencing some atelectasis. Unfortunately his chronic kidney disease complicates issues. --Acute hypoxic respiratory failure Multifactorial Secondary to multilobar pneumonia from COVID-19 Continue with dexamethasone for total of 10 days O2 supplementation to keep O2 saturation between 88-92% Not a candidate for remdesivir because of underlying CKD Self proning will be very important. --FLORIDALMA On CPAP at home Apparently patient's setting is 8 cm H2O Continue with CPAP/BiPAP while in the hospital --INNA on CKD Monitor BUNs/creatinine Plan: In/out -1550, urine output 1500 Patient has been -3 L since coming to the hospital. Patient is maintaining his saturation at the time of examination. His respir atory rate is a bit on the higher side. I did explain to the patient and answered all his questions regarding intubation what we are looking into. He is CKD stage III-IV with creatinine worsening creatinine. I did ask him whether he would be willing to have dialysis in future if need be. He said that initially when he was asked this question he did not want dialysis. He even asked what would be the process if he is not able to be taken off the line. I explained that he might need tracheostomy. He further added that what if he does not want to be intubated at all. I explained to him that we would continue with the BiPAP which he is on right now and hope for the best. Due to multiple comorbidities as the patient has he is at high risk for deterioration. Palliative care is seeing the patient. I had a talk with Georgette Denton and discussed will talk I had with the patient prior to her seeing him. Overall prognosis is guarded. Pulmonary critical care will continue to follow. If there is any clinical deterioration will plan to intubate. Given the metabolic acidosis most likely from underlying CKD and elevated BUN and creatinine. I will start the patient on sodium bicarb 106 50 mg twice daily for at least 5 days and give him a amp of bicarb. I have personally spent 37 minutes of critical care time in the direct management of this patient. This is a life/limb threatening event. This includes time spent evaluating patient, direct bedside care, chart review, placing orders, interpretation of diagnostic studies, discussion with consultants, patient, and family members, as well as other required patient management activities. This time is exclusive of all separately billable procedures, and teaching time and separate from and in addition to any other critical care service time. Please note the above document was generated using voice recognition software. It may contain grammatical, syntax or spelling errors. Admission and Anticipated Discharge Date Admission Date: August 13, 2020 Subjective Patient seen and examined at bedside. Patient was breathing in high 20s to low 30s at the time of examination. He was on 100% FiO2 on BiPAP 15/05, he was getting tidal volumes of 850, saturation was 95%. Overnight he did have an episode of desaturation while he was moving. I went down on the FiO2 to 80% and IPAP to 14. Patient was still saturating 91%. He says that his breathing has been stable no significant change since yesterday. Denies any chest pain, no headache, no nausea or vomiting. Review of Systems Review of Systems: All systems reviewed & are unremarkable except as noted in Subjective Physical Exam Physical Exam: Constitutional: No acute distress HEENT: EOMI, PERRLA, thick neck Respiratory system: Decreased air entry bilaterally, no wheeze, no rhonchi, positive crackles bilateral lower lobes CVS: S1-S2 positive, no murmurs or gallops Abdomen: Soft, nontender, nondistended, positive bowel sounds x4, obese Extremities: +2 pulses bilaterally radialis/ dorsalis pedis, no cyanosis, +1 edema bilateral lower extremity Neuro: Awake alert oriented x3 Psych: Normal mood and affect G/U: Positive Kilgore Skin: no rashes, warm and dry Lymphatic: no cervical or axillary lymphadenopathy Results & Data Results & Data ([facility]) Vital Signs (Past 12 Hours) Vital Signs Temp Pulse Pulse Pulse Resp BP BP 08/17/20 07:19 37.2 C 75 27 H 172/67 H 08/17/20 07:08 73 34 H 08/17/20 06:08 68 156/50 H 08/17/20 06:06 68 08/17/20 03:55 37.0 C 65 30 H 08/17/20 03:30 66 33 H 08/16/20 23:59 37.0 C 69 30 H 08/16/20 23:57 70 08/16/20 23:06 65 34 H BP Pulse Ox 08/17/20 07:19 93 08/17/20 07:08 88 L 08/17/20 06:08 08/17/20 06:06 156/50 H 08/17/20 03:55 115/56 L 92 08/17/20 03:30 91 08/16/20 23:59 127/47 L 93 08/16/20 23:57 08/16/20 23:06 92 08/16/20 00:52 08/17/20 06:26 Coding Level of Care Code Critical Care 1st 30-74 mins Diagnoses COVID-19 U07.1 Hypoxia R09.02 Pneumonia involving left lung J18.9 Time Spent (min) 37
[2020-08-17] MEDS ORDERED: SODIUM BICARB 8.4% INJ 50 MEQ/50 ML SYR IV STA (10:40)
[2020-08-17] MEDS ORDERED: FUROSEMIDE 60 MG in SYRINGE 0 ML IV ONE (10:57)
[2020-08-17] MEDS ORDERED: FUROSEMIDE 40 MG/4 ML VIAL IV ONE (11:00)
[2020-08-17] MEDS: dexAMETHasone 6 MG in SYRINGE 0 ML IV SCH (11:04)
[2020-08-17] MEDS: ENOXAPARIN INJ 30 MG/0.3 ML SYR SQ SCH (11:04)
--- NOTE | 2020-08-17 11:51 | Hospitalist Progress Note ---
Date of Service August 17, 2020 Assessment & Plan (1) COVID-19: (2) Pneumonia involving left lung: (3) Hypoxia: Patient is 84-year-old male with past medical history of coronary artery disease, peripheral arterial disease, s/p AAA repair, popliteal aneurysm repair, hypertension, CKD stage IV, hyperlipidemia, obstructive sleep apnea on 2 L of nasal cannula presented to the ED with Covid symptoms. Patient have had symptoms for the last 10 days. Appreciate pulmonary medicine and critical care input. Patient is not a candidate for remdesivir given his chronic kidney disease. Will continue with the Decadron. Likely component of diastolic heart failure, EF of 60% back in March 2019. PA p.o. Lasix was on hold. Continue IV Lasix 60 mg daily. Elective team is on board. Overall given poor prognosis given his hypoxia/CKD. Patient has decided to make DNR. Attempted to call but no answer. Monitor ins and outs along with daily weights. Nephrology has been consulted for diuresis in the setting of CKD. Patient was found to have elevated D-dimer. Heparin is discontinued, agree. Elevated D-dimer likely in the setting of Covid/CKD. No indication for antibiotics. White count is within normal limit. Patient is afebrile. Procalcitonin is not concerning. Blood cultures were obtained on admission, negative thus far. Pulmonary toilet with albuterol, incentive spirometry, self proning. Chest x-ray from today with multifocal pneumonia. continue PPI, start pepcid for GI prophylaxis. (4) CAD (coronary artery disease): (5) Hypertension: (6) PAD (peripheral artery disease): Continue with MANAGER OF IT aspirin, Lopressor, lisinopril, hydralazine, Imdur and felodipine Continue to hold PO Lasix for now. (7) CKD (chronic kidney disease), stage IV: Baseline is around 3-3.5. Renal function continues to worsen,. Urine output of roughly 1500 mL in the last 24 hours. Avoid any nephrotoxic agents. Continue to hold MANAGER OF IT PO Lasix for now. Awaiting nephrology input. Hypernatremia/hyperkalemia Continue to diurese. Will continue to monitor. (8) FLORIDALMA (obstructive sleep apnea): On 2L of O2 at HS continue O2 supplementation Currently remains on BiPAP. (9) Chronic anemia: Secondary to CKD Stable Macrocytic, continue folic acid (10) DVT prophylaxis: Fall: PCP Dr. Messina upon discharge. I called his and updated about his decision with palliative team today they are planning to talk to him around 4:00. I also attempted to call the daughter but no response. Admission and Anticipated Discharge Date Admission Date: August 13, 2020 Subjective Patient have had episodes of hypoxia overnight. This morning he was having some difficulty breathing and was tachypneic. Remains on the BiPAP. Overall poor prognosis. Palliative team was in the room prior to my arrival. She decided to change his CODE STATUS to DNR. At the moment denies any chest pain or any shortness of breath. Review of Systems Review of Systems: All systems reviewed & are unremarkable except as noted in HPI & below Physical Exam Physical Exam: General: awake and alert, was on the BiPAP, does not appear to be in any distress HENT: NCAT, MMM, EOMI Eyes: PERRLA Neck: Supple, normal range of motion CVS: normal rate and rhythm Resp: b/l coarse breath sounds Abdomen: Soft, nondistended, nontender Extremities: trace lower extremity edema Neuro: No gross focal deficits appreciated Skin: warm and dry MSK: normal ROM, no joint swelling/erythema Results & Data Results & Data ([facility]) Vital Signs (Past 12 Hours) Vital Signs Temp Pulse Pulse Pulse Resp BP BP 08/17/20 10:56 72 31 H 08/17/20 07:19 37.2 C 75 27 H 172/67 H 08/17/20 07:08 73 34 H 08/17/20 06:08 68 156/50 H 08/17/20 06:06 68 08/17/20 03:55 37.0 C 65 30 H 08/17/20 03:30 66 33 H 08/16/20 23:59 37.0 C 69 30 H 08/16/20 23:57 70 BP Pulse Ox 08/17/20 10:56 91 08/17/20 07:19 93 08/17/20 07:08 88 L 08/17/20 06:08 08/17/20 06:06 156/50 H 08/17/20 03:55 115/56 L 92 08/17/20 03:30 91 08/16/20 23:59 127/47 L 93 08/16/20 23:57
[2020-08-17] MEDS: hydrALAZINE HCL 25 MG TAB PO SCH ×2 (13:37→17:26)
[2020-08-17] MEDS: ASPIRIN 81 MG ECTAB PO SCH (13:37)
[2020-08-17] MEDS: guaiFENesin 600 MG TABCR PO SCH ×2 (13:37→20:14)
[2020-08-17] MEDS: PANTOprazole 40 MG TAB PO SCH (13:37)
[2020-08-17] MEDS: BENZONATATE 100 MG CAPSULE PO SCH ×3 (13:37→20:14)
[2020-08-17] MEDS: ISOSORBIDE MONO EXTENDED REL 30 MG TABCR PO SCH (13:37)
[2020-08-17] MEDS: FAMOTIDINE 40 MG TABLET PO SCH (13:37)
[2020-08-17] MEDS ORDERED: FUROSEMIDE 10 MG/ML 10 ML VIAL IV ONE (13:41)
[2020-08-17] MEDS: SODIUM BICARBONATE 650 MG TAB PO SCH ×2 (13:44→20:14)
[2020-08-17] MEDS: CEROVITE ADV FORMULA TAB PO SCH (13:45)
--- NOTE | 2020-08-17 16:44 | Consultation Report ---
DATE OF CONSULTATION: 08/17/2020 REASON FOR CONSULT: Acute renal failure on chronic kidney disease in a patient with COVID-19 pneumonia. HISTORY OF PRESENT ILLNESS: The patient is an 84-year-old male with chronic kidney disease stage IV with a baseline creatinine of around 3-3.5 followed by Nephrology. He was admitted few days ago because of the COVID-19 infection symptoms for about 10 days. He was complaining of fever, fatigue, body aches, loss of taste and smell as well as worsening shortness of breath. His symptoms have continued to get worse and he is now hypoxic, requiring BiPAP. Renal function has also gotten worse in the last few days with BUN is rising and creatinine is also rising. Labs from this morning shows a BUN of 107, creatinine of 4.23. He is making about 900 mL of urine. He is getting Decadron for COVID-19, could not get remdesivir because of renal failure. He is having a family meeting through palliative medicine later today to discuss the goals of care. PAST MEDICAL AND PAST SURGICAL HISTORY: Includes CKD IV, coronary artery disease, hypertension, peripheral artery disease, history of congestive heart failure, obstructive sleep apnea on chronic oxygen, history of AAA repair, popliteal aneurysm repair. ALLERGY: List reviewed. HOME MEDICATIONS: List was reviewed and is as per the reconciliation list. He was on lisinopril 40 and Lasix 40 daily. FAMILY HISTORY: Negative for renal disease or dialysis. SOCIAL HISTORY: He is a former smoker, no alcohol. REVIEW OF SYSTEMS: As detailed in HPI and listed, otherwise, 12 systems reviewed and negative. PHYSICAL EXAMINATION: GENERAL: Elderly white male who is in somewhat of respiratory distress. He is on a BiPAP at this time and even with that, oxygen saturation is 90%. HEENT: Mucous membrane is moist. NECK: Supple. Cannot assess JVD because of positioning and short neck. VITAL SIGNS: Include blood pressure 165/68, temperature 36.7, 91% on BiPAP. CHEST: Bilateral decreased breath sounds. Crackles at the bases. CARDIOVASCULAR: S1, S2 regular. ABDOMEN: Soft, nontender, obese. EXTREMITIES: Shows no edema. SKIN: No rashes. NEUROLOGIC: He was awake, alert, oriented and actually had a pretty accurate decent conversation with me regarding goals of care and dialysis. LABORATORY TESTS: From this morning include sodium 140, potassium 5.2, CO2 of 17, BUN 107, creatinine 4.23, calcium 8, phosphorus is 4.9, magnesium is 2.6, WBC count 7.36, hemoglobin 10.4, platelet count 193. Chest x-ray shows persistent multifocal opacities with multifocal pneumonia. ASSESSMENT AND PLAN: An 84-year-old male with significant comorbid disease including chronic kidney disease stage IV with a baseline creatinine around 3-3.5. Admitted with severe COVID-19 infection affecting multiple system and now has acute renal failure in the setting of COVID-19 infection. Acute renal failure. He appears euvolemic. However, given the degree of hypoxia and shortness of breath, he can have Lasix if felt needed and as a trial. The etiology of acute renal failure is most likely acute tubular necrosis given the acute situation with hypoxia. I would repeat UA again to see where things are. He has a Kilgore catheter, but it is reasonable to do an renal ultrasound. I would not give him IV fluid. He was started on bicarbonate tablet which is reasonable, and I would continue the same. There is high risk of him requiring renal replacement therapy; however, the patient was very clear and adamant that he will not do dialysis if such need arise and he says with all the problems including the COVID-19 infection and his age, he does not want to do dialysis and prolong his misery. I totally understand his decision and totally agree with his decision. Family discussion is supposed to happen later today, but I would most likely go with what the patient is saying as he seemed perfectly capable of making the decision. Case was discussed with hospitalist. DONNA
[2020-08-17 18:55] LABS: Appearance Urine Clear (Clear); Bacteria Urine Automated Negative (Negative); Bilirubin Urine Negative (Negative); Blood Urine Negative (Negative); Color Urine Yellow; Glucose Urine UA Negative (Negative); Ketones Urine Negative (Negative); Leukocyte Esterase Urine Negative (Negative); Nitrite Urine Negative (Negative); Protein Urine 1+ (Negative); Specific Gravity Urine 1.016 (1.000-1.030); Urobilinogen Urine Negative (Negative)
[2020-08-17] MEDS: oxyCODONE HCL IR 5 MG TAB (IMMEDIATE RELEASE) PO PRN ×2 (20:13→22:15)
[2020-08-17] MEDS: allopurinoL 100 MG TAB PO SCH (20:14)
[2020-08-17] MEDS: FELODIPINE 5 MG TABCR PO SCH (20:15)
[2020-08-17] MEDS: hydrALAZINE TAB 50 MG TAB PO SCH (20:15)
[2020-08-17] MEDS: FOLIC ACID 1 MG TAB PO SCH (20:16)
[2020-08-18] MEDS: METOPROLOL TARTRATE 1 MG/ML VIAL IV SCH ×3 (05:45→18:53)
[2020-08-18 07:03] LABS: Basophils # (auto) 0.02 K/uL (0-0.2); Basophils % (auto) 0.2 %; Hematocrit (blood only) 31.4 % (42-52); Hemoglobin 10.3 g/dL (14.0-18.0); Immature Granulocytes # (auto) 0.21 K/uL (0.00-0.02); Immature Granulocytes % (auto) 2.4 %; Lymphocytes # (auto) 0.75 K/uL (1.2-3.4); Lymphocytes % (auto) 8.5 %; Mean Corpuscular Hemoglobin 36.5 pg (25-34); Mean Corpuscular Hgb Conc 32.8 g/dL (32-36); Mean Corpuscular Volume 111.3 fL (80-100); Mean Platelet Volume 10.4 fL (7.4-10.4); Monocytes # (auto) 0.72 K/uL (0.11-0.59); Monocytes % (auto) 8.2 %; Neutrophils % (auto) 80.7 %; Nucleated RBC # (auto) 0.03 K/uL (0-0); Nucleated RBC % (auto) 0.3 %; Platelet Count 242 K/uL (130-400); RDW Coefficient of Variation 15.6 % (11.5-14.5); RDW Standard Deviation 63.7 fL (36.4-46.3); Red Blood Count 2.82 M/uL (4.7-6.1)
[2020-08-18 07:27] LABS: Macrocytosis Present
[2020-08-18 07:32] LABS: Calcium 8.8 mg/dl (8.5-10.1); Creatinine Clr Calc Pharmacy 15.6 ml/min; Est GFR (African American) 13.4; Est GFR (Non-African American) 11.6; Potassium 4.9 mmol/L (3.5-5.1)
[2020-08-18 07:33] LABS: C Reactive Protein 11.1 mg/dl (0-0.29); Phosphorus 5.4 mg/dl (2.5-4.9)
[2020-08-18] MEDS: ALBUTEROL HFA 8 GM INHALER INH SCH (07:59)
--- NOTE | 2020-08-18 08:05 | Pulmonology Progress Note ---
Date of Service August 18, 2020 Assessment & Plan (1) COVID-19: (2) Hypoxia: (3) Pneumonia involving left lung: Impression: 84-year-old male admitted with novel coronavirus pneumonia and hypoxemic respiratory failure. He unfortunately has had progression of his hypoxemic respiratory failure and is now on BiPAP. He is obese and likely experiencing some atelectasis. Unfortunately his chronic kidney disease complicates issues. --Acute hypoxic respiratory failure Multifactorial Secondary to multilobar pneumonia from COVID-19 Continue with dexamethasone for total of 10 days O2 supplementation to keep O2 saturation between 88-92% Not a candidate for remdesivir because of underlying CKD Self proning will be very important. --FLORIDALMA On CPAP at home Apparently patient's setting is 8 cm H2O Continue with CPAP/BiPAP while in the hospital --INNA on CKD Monitor BUNs/creatinine Plan: Overall prognosis of the patient is guarded given the worsening creatinine as well as still continues requirement of BiPAP. Patient is aware about his deteriorating situation He wants to continue with the current supportive care that we are giving him. I did advise him to do overnight volume but he says he is not able to sleep on the belly on the side. Importance of it again explained to the patient. Pulmonary will follow peripherally. Please call with any questions directly. Please note the above document was generated using voice recognition software. It may contain grammatical, syntax or spelling errors. Admission and Anticipated Discharge Date Admission Date: August 13, 2020 Subjective Patient seen and examined at bedside. He was saturating 75% at time of examination while on high flow. He was getting his sips of water juice. Shown the patient how to use incentive spirometry whenever he is off BiPAP. He was put on BiPAP and his saturation went up to 89% on 90% FiO2. Review of Systems Review of Systems: All systems reviewed & are unremarkable except as noted in Subjective Physical Exam Physical Exam: Constitutional: No acute distress HEENT: EOMI, PERRLA, thick neck Respiratory system: Decreased air entry bilaterally, no wheeze, no rhonchi, positive crackles bilateral lower lobes CVS: S1-S2 positive, no murmurs or gallops Abdomen: Soft, nontender, nondistended, positive bowel sounds x4, obese Extremities: +2 pulses bilaterally radialis/ dorsalis pedis, no cyanosis, +1 edema bilateral lower extremity Neuro: Awake alert oriented x3 Psych: Normal mood and affect G/U: Positive [place] Skin: no rashes, warm and dry Lymphatic: no cervical or axillary lymphadenopathy Results & Data Results & Data ([facility]) Vital Signs (Past 12 Hours) Vital Signs Temp Pulse Pulse Resp BP BP Pulse Ox 08/18/20 08:01 69 22 94 08/18/20 07:47 36.7 C 68 21 136/57 L 93 08/18/20 05:45 72 141/54 H 08/18/20 04:18 36.6 C 76 22 136/67 90 08/18/20 03:35 64 22 91 08/17/20 23:27 68 24 86 L 08/17/20 23:04 75 132/53 L 08/17/20 23:02 37.0 C 75 22 132/53 L 91 08/18/20 06:18 08/18/20 06:18 PG Care Time/CCT Total # of Minutes Spent Total Time Spent with Patient: Total time spent is greater than 50% in coordination of care (as documented) at patient's floor/unit and/or counseling patient: Coding Level of Care Code 72280 Subseq Hosp Care Lvl 3 Diagnoses COVID-19 U07.1 Hypoxia R09.02 Pneumonia involving left lung J18.9
[2020-08-18] MEDS ORDERED: ALBUTEROL HFA 8 GM INHALER INH PRN (08:56)
[2020-08-18] MEDS: ENOXAPARIN INJ 30 MG/0.3 ML SYR SQ SCH (09:25)
[2020-08-18] MEDS: FAMOTIDINE 40 MG TABLET PO SCH (09:26)
[2020-08-18] MEDS: ASPIRIN 81 MG ECTAB PO SCH (09:26)
[2020-08-18] MEDS: hydrALAZINE HCL 25 MG TAB PO SCH ×2 (09:26→18:52)
[2020-08-18] MEDS: ISOSORBIDE MONO EXTENDED REL 30 MG TABCR PO SCH (09:26)
[2020-08-18] MEDS: PANTOprazole 40 MG TAB PO SCH (09:26)
[2020-08-18] MEDS: guaiFENesin 600 MG TABCR PO SCH ×2 (09:27→21:24)
[2020-08-18] MEDS: BENZONATATE 100 MG CAPSULE PO SCH ×3 (09:27→21:24)
[2020-08-18] MEDS: SODIUM BICARBONATE 650 MG TAB PO SCH ×2 (09:28→21:24)
[2020-08-18] MEDS: dexAMETHasone 6 MG in SYRINGE 0 ML IV SCH (09:29)
[2020-08-18] MEDS: oxyCODONE HCL IR 5 MG TAB (IMMEDIATE RELEASE) PO PRN ×2 (09:34→21:31)
--- NOTE | 2020-08-18 10:28 | Hospitalist Progress Note ---
Date of Service August 18, 2020 Assessment & Plan (1) COVID-19: (2) Pneumonia involving left lung: (3) Hypoxia: Patient is 84-year-old male with past medical history of coronary artery disease, peripheral arterial disease, s/p AAA repair, popliteal aneurysm repair, hypertension, CKD stage IV, hyperlipidemia, obstructive sleep apnea on 2 L of nasal cannula presented to the ED with Covid symptoms. Patient have had symptoms for the last 10 days. Throughout this hospitalization patient has been hypoxic with increasing oxygen requirement along with worsening renal function. Palliative medicine is on board. Appreciate pulmonary medicine and critical care input. Patient is not a cand idate for remdesivir given his chronic kidney disease. Will continue with the Decadron. Likely component of diastolic heart failure, EF of 60% back in March 2019. PA p.o. Lasix was on hold. Patient has been on IV Lasix daily 60 mg. Urine output of only 1.6 L in the last 24 hours. BUN further worsening along with creatinine. Hold Lasix for today. Palliative team is on board. Overall, poor prognosis given his worsening respiratory failure/and aucte on CKD. Patient has decided to be DNR/DNI. Monitor ins and outs along with daily weights. Nephrology is on board. Patient is not a candidate for dialysis. Patient also prefers that he would not want to be on dialysis. Patient was found to have elevated D-dimer. Elevated D-dimer likely in the setting of Covid/CKD. No indication for antibiotics. White count is within normal limit. Patient is afebrile. Procalcitonin is not concerning. Blood cultures were obtained on admission, negative thus far. Pulmonary toilet with albuterol, incentive spirometry, self proning. Chest x-ray from today with multifocal pneumonia. Continue PPI, start pepcid for GI prophylaxis. (4) CAD (coronary artery disease): (5) Hypertension: (6) PAD (peripheral artery disease): Continue with ACTIVITY MANAGER aspirin, Lopressor, lisinopril, hydralazine, Imdur and felodipine Continue to hold PO Lasix for now. (7) CKD (chronic kidney disease), stage IV: Baseline is around 3-3.5. Renal function continues to worsen,. Urine output of roughly 1600 mL in the last 24 hours. Avoid any nephrotoxic agents. Continue to hold ACTIVITY MANAGER PO Lasix for now. Appreciate nephrology input. Started on bicarbonate tablets. Hypernatremia/hyperkalemia Continue to diurese. Will continue to monitor. (8) FLORIDALMA (obstructive sleep apnea): On 2L of O2 at HS Currently on HFNC. (9) Chronic anemia: Secondary to CKD Stable Macrocytic, continue folic acid (10) DVT prophylaxis: Fall: PCP Dr. Messina upon discharge. updated today. Admission and Anticipated Discharge Date Admission Date: August 13, 2020 Subjective Patient was on the BiPAP overnight and saturating above 90s. This morning upon my arrival patient was on high flow nasal cannula and was saturating in the high 80s did not appear to be in any distress and denies feeling short of breath. Does have cough. Denies any chest pain, abdominal pain or diarrhea. Currently he is awake, alert and oriented x3. Review of Systems Review of Systems: All systems reviewed & are unremarkable except as noted in HPI & below Physical Exam Physical Exam: General: awake and alert, Ox3, currently on HFNC HENT: NCAT, MMM, EOMI Eyes: PERRLA Neck: Supple, normal range of motion CVS: normal rate and rhythm Resp: b/l coarse breath sounds Abdomen: Soft, nondistended, nontender Extremities: trace lower extremity edema Neuro: No gross focal deficits appreciated Skin: warm and dry MSK: normal ROM, no joint swelling/erythema Results & Data Results & Data ([facility]) Vital Signs (Past 12 Hours) Vital Signs Temp Pulse Pulse Resp BP BP Pulse Ox 08/18/20 08:01 69 22 94 08/18/20 07:47 36.7 C 68 21 136/57 L 93 08/18/20 05:45 72 141/54 H 08/18/20 04:18 36.6 C 76 22 136/67 90 08/18/20 03:35 64 22 91 08/17/20 23:27 68 24 86 L 08/17/20 23:04 75 132/53 L 08/17/20 23:02 37.0 C 75 22 132/53 L 91
--- NOTE | 2020-08-18 11:11 | Progress Notes ---
DATE: 08/18/2020 NEPHROLOGY PROGRESS NOTE SUBJECTIVE: Overnight, no new issues. The patient continues to be quite short of breath requiring high-flow oxygen and BiPAP. OBJECTIVE: VITAL SIGNS: Blood pressure is 136/57, pulse rate 69, temperature 36.7, 94% on BiPAP. CHEST: Bilaterally decreased breath sounds, occasional crackles. CARDIOVASCULAR: S1, S2 regular. ABDOMEN: Soft, nontender. EXTREMITIES: Show no edema. GENITOURINARY: He has a Kilgore catheter and did make urine 1650 mL. LABORATORY TEST: From this morning shows BUN of 129, creatinine is 4.3, sodium 143, potassium 4.9, chloride 114, CO2 of 19, anion gap 10, calcium 8.8, phosphorus 5.4, magnesium 3. Chest x-ray shows persistent multifocal airspace opacities consistent with multifocal pneumonia. ASSESSMENT AND PLAN: An 84-year-old male with COVID-19 infection with preexisting chronic kidney disease IV, baseline creatinine 3 to 3.5 and now has progressively worsening renal failure, for which we have been consulted. Acute renal failure, this is in the setting of COVID-19 multifocal pneumonia. He does not appear to be volume overloaded nor volume depleted. No need of IV fluid, although he should be encouraged to eat and drink normal amount. He can have Lasix if it is felt to be needed, but to me he does not appear to be in fluid overload. We again had a long discussion about potential need of dialysis and he was again very clear and certain about the fact that he will not do dialysis. We will respect his wish. Continue current management.
[2020-08-18] MEDS ORDERED: OLANZAPINE 2.5 MG TAB PO PRN (11:23)
--- NOTE | 2020-08-18 12:08 | Palliative Care Progress Note ---
Date of Service August 18, 2020 Assessment & Plan (1) Palliative care encounter: The patient was resting, breathing even unlabored breaths when I entered room 212. Constantine is AAOx3 and able to communicate with both the BiPAP mask on and with High Flow. We discussed his hospitalization course, including his Gentle diuresis has been done, but is tedious with his end stage renal disease. Currently creatinine is 4.23 today. I talked at length with Constantine Meredith about his current condition. He is able to fully understand his condition. He mentioned that his physicians has suggested and discussed him doing hemodialysis for the past 3 years. He also referenced that he has been on a ventilator before when he underwent repair of his AAA. I did discuss in detail what being on a ventilator would look like with sedation, possible pressors, and taking into consideration his age and previous extensive comorbidities, with his poor renal function does lead to a poor prognosis. 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 We discussed comfort measures and what that looks like, and when it feels like he has lost all control of what is happening, this is something he does have control over, how the last phase of his life goes. He would like to continue supportive treatment for now, but does not want escalation of care, and does not want CPR, intubation, or hemodialysis. DNR/DNI is now reflected in the computer order set. Should his respiratory status decline, he would like to be transitioned to comfort measures only. I did order Roxicodone PRN for him in ca se he does start to have air hunger and he has utilized THREE doses within 24 hours. He indicated that Morphine does cause him to have a 'high' sensation and would like to initially start with something else. He was able to complete a Zoom with family yesterday, which he very much appreciated. Eventually, I anticipate we will be able to transition back to Morphine depending on how he progresses. He mentioned feeling jittery at times, which appears to be his baseline. I did order Zyprexa SL 2,5 mg TID PRN and will assess his use of this. He mentioned that it has become more difficult taking his medications, physically swallowing so many with his poor respiratory status. Discussed with him and the hospitalist and will discontinue some non essential medications. All of the above discussed with his nurse, Jean-Paul. Will continue supportive treatment for now. Palliative will continue to follow this gentleman's symptom management and oxygen needs. (2) COVID-19: (3) Hypoxia: (4) Obesity: (5) Pneumonia involving left lung: (6) CKD (chronic kidney disease), stage IV: Admission and Anticipated Discharge Date Admission Date: August 13, 2020 Subjective Patient is sitting upright in his bed, in no apparent distress. Patient has been back and forth between BiPAP and High Flow, now on BiPAP 0.90, SpO2 goal 86-90% Please see A/P for further details. Review of Systems Review of Systems: [place] System Assessment Scale - Revised Pain: 0/3 Shortness of Breath: 1/3 Anxiety: 1/3 Palliative Performance Scale: 20% Physical Exam Constitutional: + ill appearing, cooperative and comfortable Respiratory: normal respiratory effort, lungs clear to auscultation Auscultation: + diminished lung sounds Cardiovascular: Extremities: normal capillary refill and + edema Gastrointestinal (Abdomen): normal bowel sounds, soft, nontender, no hepatosplenomegaly Skin: no rashes, warm and dry normal turgor Psychiatric: A+Ox3, euthymic affect Insight: good insight Judgement: good judgement Results & Data ([facility]) Vital Signs (Past 12 Hours) Vital Signs Temp Pulse Pulse Resp BP BP Pulse Ox 08/18/20 11:43 71 22 89 L 08/18/20 11:28 36.6 C 79 20 125/61 90 08/18/20 08:01 69 22 94 08/18/20 07:47 36.7 C 68 21 136/57 L 93 08/18/20 05:45 72 141/54 H 08/18/20 04:18 36.6 C 76 22 136/67 90 08/18/20 03:35 64 22 91 PG Care Time/CCT Total # of Minutes Spent Total Time Spent with Patient: Total time spent is greater than 50% in coordination of care (as documented) at patient's floor/unit and/or counseling patient: 35 Coding Level of Care Code 46109 Subseq Hosp Care Lvl 3 Diagnoses Palliative care encounter Z51.5 COVID-19 U07.1 Hypoxia R09.02 Obesity E66.9 Pneumonia involving left lung J18.9 CKD (chronic kidney disease), stage IV N18.4 Time Spent (min) 35 Time Spent Midlevel Total time spent 35 minutes with > 50% of that time spent assessing the patient, discussing goals of care with patient and collaborating with IDT
[2020-08-18] MEDS: hydrALAZINE TAB 50 MG TAB PO SCH (21:24)
[2020-08-19] MEDS: METOPROLOL TARTRATE 1 MG/ML VIAL IV SCH ×4 (01:06→17:25)
[2020-08-19] MEDS: ASPIRIN 81 MG ECTAB PO SCH (08:00)
[2020-08-19] MEDS: ENOXAPARIN INJ 30 MG/0.3 ML SYR SQ SCH (08:00)
[2020-08-19] MEDS: ISOSORBIDE MONO EXTENDED REL 30 MG TABCR PO SCH (08:01)
[2020-08-19] MEDS: BENZONATATE 100 MG CAPSULE PO SCH ×2 (08:02→13:49)
[2020-08-19] MEDS: dexAMETHasone 6 MG in SYRINGE 0 ML IV SCH (08:02)
[2020-08-19] MEDS: SODIUM BICARBONATE 650 MG TAB PO SCH (08:03)
[2020-08-19] MEDS: hydrALAZINE HCL 25 MG TAB PO SCH (08:03)
[2020-08-19] MEDS: guaiFENesin 600 MG TABCR PO SCH (08:04)
[2020-08-19] MEDS: oxyCODONE HCL IR 5 MG TAB (IMMEDIATE RELEASE) PO PRN (08:14)
[2020-08-19] MEDS ORDERED: MoRPHine SULFATE 2 MG/ML CARP IV STA (08:55)
[2020-08-19] MEDS ORDERED: MoRPHine SULFATE 2 MG/ML CARP ONE (11:48)
[2020-08-19] MEDS ORDERED: MoRPHine SULFATE 5 MG/0.25 ML UDP PO PRN (13:52)
[2020-08-19] MEDS ORDERED: LORazepam 0.5 MG TAB PO PRN (14:24)
[2020-08-19] MEDS ORDERED: ATROPINE SULFATE 1% OP SOLN 5 ML BTL SL PRN (14:24)
[2020-08-19] MEDS ORDERED: ONDANSETRON INJ 2 MG/ML 2 ML VIAL IV PRN (14:24)
[2020-08-19] MEDS ORDERED: PROMETHAZINE HCL 12.5 MG in SODIUM CHLORIDE 0.9% 50 ML IV PRN (14:24)
--- NOTE | 2020-08-19 14:31 | Communication Note ---
Date of Service: August 19, 2020 This is a 84-year-old with complicated past medical history of cute hypoxemic respiratory failure secondary to COVID-19 pneumonia, end-stage renal disease, not a candidate for dialysis, status post triple AAA repair, severe peripheral vascular disease, Appreciate input from palliative care. Patient was continued with supportive care, Respiratory status continued to decline - progressively hypoxic, could not tolerate BiPAP Currently on high flow oxygen via nasal cannula saturation remains in the mid 80s, Overall poor prognosis, Goal of care transition to comfort care with liberal use of Roxanol as needed for air hunger shortness of breath/discomfort. DC all lab draws, cardiac monitoring, daily EKG. Patient is DNR/DNI Patient is currently on comfort/palliative care Jeanette Wilkins MD We will update family members over phone. Jeanette Wilkins MD
[2020-08-19] MEDS: MoRPHine SULFATE 2 MG/ML CARP IV PRN (17:25)
--- NOTE | 2020-08-19 19:19 | Communication Note ---
Date of Service: August 19, 2020 pt is awake and alert on high flow 02 spo2 in low 80's during conversation drops to 70's pt understands his prognosis , tearful , says " i know i am terminal , dont want Bipap mask , no machine or feeding tube , want to go peacefully " ordered for PRN Roxanol for air hunger /sob currently comfort care /hospice goal of care toward -limit symptoms as much as possible all maintenance drugs D/lucas pt requests for ice cream , advanced diet to regular minced and moist , pt will be allowed to eat and drink as tolerated . Physical exam : limited exam for comfort care elderly male , on high flow 02 via nasal canula HEENT: lips cyanotic lungs : diminished breath sound , bibasilar rales , + wheeze Neuro ; no focal deficit , AAO x3 A/P : Comfort care /hospice : terminal status -acute hypoxemic respiratory failure/covid 19 pneumonia , multi organ failure pt does not want dialysis , no mechanical ventilation , CPR , goal of care toward -palliative /comfort DNR/DNI family updated over phone
--- NOTE | 2020-08-20 00:23 | Electrocardiogram Report ---
Test Reason : Blood Pressure : / mmHG Vent. Rate : 081 BPM Atrial Rate : 081 BPM P-R Int : 146 ms QRS Dur : 104 ms QT Int : 380 ms P-R-T Axes : 041 -12 -01 degrees QTc Int : 441 ms Normal sinus rhythm Voltage criteria for left ventricular hypertrophy Nonspecific ST abnormality Abnormal ECG When compared with ECG of 13-AUG-2020 12:50, No significant change was found Confirmed by Tre Ramirez ([id number]) on 08/20/2020 12:22:42 AM Referred By: REFERRED SELF Confirmed By:Tre Ramirez
[2020-08-20] MEDS: MoRPHine SULFATE 2 MG/ML CARP IV PRN ×6 (00:27→23:25)
[2020-08-20] MEDS: LORazepam 0.5 MG/1 ML VIAL IV PRN ×3 (09:33→23:25)
--- NOTE | 2020-08-20 16:39 | Palliative Care Progress Note ---
Date of Service August 20, 2020 Assessment & Plan (1) Dyspnea: With hypoxic respiratory failure. He did not tolerate mask. Prefers nasal cannula. Morphine is effective. Discussed increasing frequency of dosing as he is watching the clock sometimes. He was very relieved that he could have doses more frequently. Would consider infusion if morphine use increases. Continue ativan as needed. (2) Palliative care encounter: He is very much aware that he is approaching his dying time. He is accepting this and has been communicating with his family. He declined zoom meeting today as it takes too much out of him. Called to discuss. No answer. (3) COVID-19: (4) FLORIDALMA (obstructive sleep apnea): (5) Pneumonia involving left lung: Admission and Anticipated Discharge Date Admission Date: August 13, 2020 Subjective Denies pain. Has dyspnea with conversation. He has had morphine twice in the last twelve hours. He does note that it eases his breathing. He is also getting ativan which helps him sleep and he is grateful for that. He has been talking with family on the phone but declines another zoom visit. Review of Systems Review of Systems: [place] Symptom Assessment Scale Pain 0/3 Dyspnea 3/3 Nausea 0/3 Anorexia 0/3 Drowsiness 1/3 Palliative Performance Score 20% Physical Exam Constitutional: + ill appearing ENMT: Mouth: + dry oral mucous membranes lips cyanotic Sats low 70s on 40L at 100% Respiratory: + labored breathing and + uses accessory muscles dyspnea with conversation Cardiovascular: Rate/Rhythm: regular rhythm Musculoskeletal: Extremities: extremities normal to inspection Skin: warm and dry Neurologic: moves all extremities and awake Results & Data ([facility]) Vital Signs (Past 12 Hours) Vital Signs Pulse Pulse Resp Pulse Ox 08/20/20 14:57 75 20 78 L 08/20/20 11:15 92 H 24 08/20/20 07:25 86 22 08/20/20 06:25 84 80 L 08/20/20 05:00 72 92 PG Care Time/CCT Total # of Minutes Spent Total Time Spent with Patient: Total time spent is greater than 50% in coordination of care (as documented) at patient's floor/unit and/or counseling patient: Total time spent is 40 minutes with more than 50% of time spent on symptom management and support. Coding Level of Care Code 58467 Subseq Hosp Care Lvl 3 Diagnoses Dyspnea R06.00 Palliative care encounter Z51.5 COVID-19 U07.1 FLORIDALMA (obstructive sleep apnea) G47.33 Pneumonia involving left lung J18.9
--- NOTE | 2020-08-20 21:24 | Hospitalist Progress Note ---
Date of Service August 20, 2020 Assessment & Plan (1) Palliative care encounter: Terminal end-stage status secondary to advanced respiratory failure, end- stage renal disease, not a candidate for dialysis, currently remains on high flow oxygen for comfort, IV morphine, IV Ativan as needed for anxiety and discomfort Palliative care team following closely, appreciate input Plan to transition to IV morphine drip if requiring every 1 hour IV morphine. Patient is DNR/DNI, very poor prognosis, possible will during this hospital stay. Admission and Anticipated Discharge Date Admission Date: August 13, 2020 Subjective Follow-up visit for acute on chronic hypoxemic respiratory failure secondary to COVID-19 pneumonia, currently on comfort/palliative care: Patient remains in comfort care requiring high flow oxygen, IV morphine ordered every 1 hours as needed for pain/shortness of breath, air hunger Palliative care following Changed to IV morphine drip if patient is requiring morphine every 1 hour or earlier. Patient is DNR/DNI Review of Systems Review of Systems: Unobtainable due to cognitive status (Very lethargic) Physical Exam Physical Exam: Minimal exam for comfort care. General: Elderly male with high flow oxygen very ill-appearing, does not appear to be having visible respiratory distress, lethargic Results & Data Results & Data ([facility]) Vital Signs (Past 12 Hours) Vital Signs Pulse Pulse Resp Pulse Ox 08/20/20 19:28 77 20 77 L 08/20/20 14:57 75 20 78 L 08/20/20 11:15 92 H 24
[2020-08-20 23:26] VITALS: BP 175/73; TEMP 99.1
[2020-08-21] MEDS: MoRPHine SULFATE 2 MG/ML CARP IV PRN ×4 (01:30→08:36)
[2020-08-21] MEDS: LORazepam 0.5 MG/1 ML VIAL IV PRN ×4 (01:30→08:43)
[2020-08-21 07:33] VITALS: PULSE 94; O2SAT 89
--- NOTE | 2020-08-21 08:49 | Communication Note ---
Date of Service: August 21, 2020 Patient remains hypoxic, lethargic, Try to transition from high flow oxygen to oxygen mask 10 L With minimal change of oxygen setting patient noted to become hypoxic SPO2 dropping down to 70s to drastically If patient becomes symptomatic with shortness of breath: Nursing instructed to give IV morphine prior We will keep patient on oxygen mask, utilize IV morphine as needed, or transition to drip for air hunger Plan to transfer to medical floor with comfort care Very poor prognosis, life expectancy Hours to 1-2 days Plan of care discussed with nursing in detail: Updated patient's and daughter pt Is in end-stage on palliative/comfort care: DNR/DNI Jeanette Wilkins MD
--- NOTE | 2020-08-21 10:23 | Death Pronouncement Note ---
Date of Service August 21, 2020 Pronouncement Note Admission Date Admission Date: August 13, 2020 Contributing Factors (1) Palliative care encounter: Contributing factors: COVID 19 PNEUMONIA , ACUTE HYPOXEMIC RESPIRATORY FAILURE PATIENT WHILE ON HOSPICE /COMFORT CARE OTHER CONDITIONS NOT DIRECTLY RELATED TO /BUT HAS CONTRIBUTED : END STAGE KIDNEY DISEASE , NOT A CANDIDATE FOR DIALYSIS ADVANCED CORONARY ARTERY DISEASE SEVERE PERIPHERAL VASCULAR DISEASE PRONOUNCEMENT : Patient seen and examined at bedside by my self : no apical pulse , no respiratory movement no heart rate or lung sounds or breathing on auscultation pupils bilateral dilated and fixed no reflex present pt while on comfort care /was DNR/DNI time of 0944 am July causes of as documented below family updated over phone Additional Data Attending physician: Jeanette Wilkins MD
--- NOTE | 2020-08-21 10:35 | Communication Note ---
Date of Service: August 21, 2020 spoke with Pt's Daughter Flavia over phone -updated that pt peacefully . Provided Condolences for her loss . daughter is appreciative of the care her father received here . she will go to her Mother's house and tell her about pt's in person . Daughter requests all her fathers Personal belonging to be sent to home , where they will be able to collect them . Jeanette Wilkins MD
--- NOTE | 2020-08-21 10:35 | Discharge Summary ---
Date of Service August 21, 2020 Admission HPI Per Admitting Provider This is a 84-year-old male has significant past medical history of CAD, PAD, history of AAA repair, history popliteal aneurysm repair, HTN, HLD, FLORIDALMA on 2 L at HS, CKD stage IV who presents to ED secondary to COVID-19 symptoms x10 days. He complains of fever, fatigue, body aches, loss of taste & smell, sinus congestion and worsening shortness of breath. His symptoms have progressed over the past 10 days. He was seen by convenient care and his oxygen saturation was 90% on room air. He was referred to ED for further evaluation. In ED chest x- ray findings are concerning for left middle and lower lobe pneumonia. His SARS-CoV-2 was positive. He did have mild leukopenia, significant elevation of D-dimer echo, elevated 0.2. CRP also elevated. He was treated with IV dexamethasone. Of significance he does have CKD stage IV to stage V. He follows with Dr. Power of nephrology. Peritoneal dialysis was discussed not on PD. He does have sleep apnea which he uses 2 L of O2 at bedtime. He denies any lightheadedness, dizziness, headache, syncope, chest pain, hemoptysis, nausea, vomiting, abdominal pain, change in bowel or urinary habits. He overall does have decreased appetite. Principal Diagnosis Pt : Cause of : ACUTE HYPOXEMIC RESPIRATORY FAILURE PATIENT WHILE ON HOSPICE /COMFORT CARE OTHER CONDITIONS NOT DIRECTLY RELATED TO /BUT HAS CONTRIBUTED : END STAGE KIDNEY DISEASE , NOT A CANDIDATE FOR DIALYSIS ADVANCED CORONARY ARTERY DISEASE SEVERE PERIPHERAL VASCULAR DISEASE Discharge Exam Patient , PRONOUNCEMENT : Patient seen and examined at bedside by my self : no apical pulse , no respiratory movement no heart rate or lung sounds or breathing on auscultation pupils bilateral dilated and fixed no reflex present pt while on comfort care /was DNR/DNI time of 0944 am July causes of as documented below family updated over phone Discharge Data Allergies Allergy/AdvReac Type Severity Reaction Status Date / Time Iodinated Contrast Media Allergy Severe KIDNEY Unverified 08/13/20 13:57 PROBLEMS amoxicillin Allergy Unknown . Verified 08/13/20 13:57 atorvastatin Allergy Unknown ` Verified 08/13/20 13:57 gemfibrozil Allergy Unknown . Verified 08/13/20 13:57 Penicillins Allergy Unknown Verified 08/13/20 13:57 rosuvastatin Allergy Unknown . Verified 08/13/20 13:57 morphine AdvReac Mild PT DOES Verified 08/13/20 13:57 NOT LIKE THE WAY IT MAKES HIM FEEL Consultations 08/13/20 14:00 ED Decision to Admit Stat 08/13/20 15:16 Consult Infectious Diseases Routine Consult Pulmonology Routine 08/16/20 09:47 Consult Palliative Care Routine 08/16/20 11:31 Consult Nephrology Routine 08/19/20 14:24 Consult Case Management - Discharge Planning Routine Hospital Course (1) Palliative care encounter: Terminal end-stage status secondary to advanced respiratory failure, end- stage renal disease, not a candidate for dialysis, currently remains on high flow oxygen for comfort, IV morphine, IV Ativan as needed for anxiety and di scomfort Palliative care team following closely, appreciate input Patient is DNR/DNI, very poor prognosis, goal of care transitioned to Hospice appreciate input /help form palliative care team Family - and daughter in agreement with the care plan pt today while on hospice /comfort care family updated Total Time Total Time Spent Total Time Spent (In Minutes): Patient Discharge Plan Discharge Items Patient Disposition:
== END 2020-08-21 11:00 | disposition expired | DRG 177 ==
LOC: ED 11:41 → SUATTDRO 13:57 → 2E 13:57